=== PATIENT | female | born 1935 | race Caucasian/White ===

== ENCOUNTER 2018-07-02 12:42 | Emergency (ER) | payer MEDICARE, SELFPAY ==
[2018-07-02] VITALS (16 sets, daily range): BP systolic 113–188; BP diastolic 65–125; PULSE 65–154; RESP 8–25; TEMP 36.6; O2SAT 96–100; BMI 29.0
--- NOTE | 2018-07-02 12:56 | EKG12_ITS ---
Test Reason : REPEAT-CARDIOVERSION Blood Pressure : / mmHG Vent. Rate : 071 BPM Atrial Rate : 071 BPM P-R Int : 180 ms QRS Dur : 124 ms QT Int : 394 ms P-R-T Axes : 062 020 028 degrees QTc Int : 428 ms Normal sinus rhythm Right bundle branch block Abnormal ECG Confirmed by ANÍBAL PEREIRA ([id number]), pictures editor DELORIS BERG ([id number] on 07/05/2018 4:47:16 PM Referred By: HERMELINDA Confirmed By:ANÍBAL PEREIRA
--- NOTE | 2018-07-02 12:56 | RAD_ITS ---
STUDY: X-RAY CHEST REASON FOR EXAM: Female, 83 years old. Chest pain. TECHNIQUE: Single AP portable view of the chest. COMPARISON: None. FINDINGS: EKG electrodes are seen. Hyperinflation and scattered calcified granulomas. There is no demonstrated pleural abnormality. Normal size heart. Normal mediastinum and shahzad. Normal visualized pulmonary arteries. There is atherosclerotic calcification of the aortic arch with tortuosity. There are diffuse degenerative changes of the visualized thoracic spine. Mild dextroscoliosis. Normal visualized ribs, clavicles, and shoulders. There is no demonstrated abnormality of the visualized soft tissue structures of the upper abdomen. RAD/Chest 1 View (Portable) IMPRESSION: Hyperinflation. The lungs are clear. Electronically Signed: Puma Le, at 13:27 EDT , Service support ,
[2018-07-02] MEDS: Aspirin 81 MG TAB.CHEW 324 MG PO (13:05)
[2018-07-02] MEDS: Adenosine 6 MG/2 ML Syringe IV (13:05)
--- NOTE | 2018-07-02 13:11 | ED.RN ---
THIS RN AT BEDSIDE WITH . DR. SHEN GAVE 6MG OF ADENOSINE IV PUSH THROUGH RAC FOLLOWED BY 20ML NS FLUSH. EKG SHOWED UNDETERMINED RHYTHM RIGHT BUNDLE BRANCH BLOCK. POST ADENOSINE VITALS 119/94BP, 12 RESP RATE, 145 HR, 100% O2 ON 2L NC. PT LAYED FLAT TOLERATED WELL.
[2018-07-02 13:22] LABS: Absolute Lymphocyte Count 2.42 X10^3/ul (0.83-4.51); Absolute Neutrophil Count 2.9 X10^3/uL (2.0-7.7); Basophil# 0.02 X10^3/uL; Basophil% 0.3 % (0-1); Eosinophil# 0.06 X10^3/uL; Hematocrit 47.9 % (37-47); Hemoglobin 15.7 g/dl (12.0-15.0); Lymphocyte # 2.42 X10^3/ul (4.0); Lymphocyte % 41.7 % (19-41); Mean Corp Hgb Conc 32.8 g/gl (32-36); Mean Corpuscular Hgb 28.6 pg (27.0-32.0); Mean Corpuscular Volume 87.2 fL (81-99); Monocyte% 6.9 % (0-10); Neutrophil # 2.89 X10^3/uL (2.7-7.7); Neutrophil % 49.9 % (47-70); POSITIVE COUNT NO; POSITIVE DIFFERENTIAL NO; POSITIVE MORPHOLOGY NO; Platelet Count 209 K/mm3 (150-450); RBC Distribution Width CV 13.9 % (11.6-14.6); RBC Distribution Width SD 44.9 fl (35.1-43.9); Red Blood Count 5.49 M/mm3 (4.2-5.4); White Blood Count 5.8 K/mm3 (4.4-11.0)
[2018-07-02] MEDS: Etomidate 20 MG/10 ML Vial IV (13:28)
--- NOTE | 2018-07-02 13:30 | EKG12_ITS ---
Test Reason : CP Blood Pressure : / mmHG Vent. Rate : 157 BPM Atrial Rate : 074 BPM P-R Int : 000 ms QRS Dur : 110 ms QT Int : 306 ms P-R-T Axes : 000 060 015 degrees QTc Int : 494 ms Atrial fibrillation Right bundle branch block Abnormal ECG Confirmed by LUCA RODRIGUEZ, MIGUEL A ([id number]), state editor TED CULLEN ([id number]) on 07/14/2018 1:51:13 PM Referred By: SINDI Confirmed By:MIGUEL A SEGOVIA MD
[2018-07-02 13:38] LABS: Anion Gap 8 (5-15); BUN 10 mg/dL (7-18); BUN/Creat Ratio 18.4 RATIO (10-20); Chloride 103 mmol/L (98-107); Creatinine, Serum 0.54 mg/dL (0.55-1.02); EST Glomerular Filtration Rate 114 mL/min (>60); Est Glom Filt Rate - Afr Amer 137 mL/min (>60); Estimated Creatinine Clearance 36.81 ml/min; Glucose 102 mg/dL (74-106); Potassium 3.8 mmol/L (3.5-5.1); Sodium Level 137 mmol/L (136-145)
--- NOTE | 2018-07-02 13:39 | ED.VIS.GEN ---
History of Present Illness Chief Complaint: Chest Pain Informant: Patient Onset: Today - Context: Sudden Onset Timing: Continuous Quality: Trouble with speech and hallucinations Location: Noted by Current Severity: Mild Maximum Severity: Moderate Worsened by: Unknown Relieved by: Nothing Associated Symptoms: Dyspnea Narrative: Patient is a 83-year-old woman who presents with right-sided jaw pain chest discomfort with shortness of breath. Noted at 100 when she got up to use the restroom. She developed pressure in her chest at 05 100 and rapid heartbeat. She has no history of dysrhythmia or tachycardia. She denies orthopnea or PND. She does report mild dyspnea with exertion. She denies hematemesis, melena hematochezia. She denies leg pain, swelling discoloration. Denies history of PE or DVT or any risk factors. Prior similar symptoms: No Recent Illness/Hospitalization: No - Past Medical History (1) Depression Status: Chronic (2) Hyperlipidemia Status: Chronic (3) Hypertension Status: Chronic Past Medical History - Allergies and Home Meds Allergies/Adverse Reactions: Allergies Penicillins [PCN] Allergy (Verified 07/02/18 12:42) Rash lisinopril Adverse Reaction (Verified 07/02/18 12:42) Other COUGH Primary Care Physician: Bigg Holliday MD [Primary Care Provider] - Prior records reviewed: Yes - 2 determine medications for blood pressure Surgical History: total hip arthroplasty - Right., tonsillectomy, - - Tubal ligation. Lives: Spouse/ Significant Other Smoking Status: Never smoker Alcohol: None Drugs: None - Family History Maternal Family History: Reports: No pertinent history Paternal Family History: Reports: No pertinent history Review of Systems General: Denies: Chills, Fever, Malaise, Sweats, Weight loss Eyes: Denies: Visual changes - bilaterally, Diplopia ENT: Denies: Rhinorrhea, Sore throat Cardiovascular: Reports: Chest pain, Palpitations Respiratory: Reports: Dyspnea, Dyspnea on exertion Gastrointestinal: Denies: Abdominal pain, Nausea, Vomiting, Diarrhea, Melena, Hematochezia Genitourinary: Denies: Dysuria, Hematuria, Frequency Musculoskeletal: Denies: Myalgias, Arthralgias, Neck pain, Back pain, Swelling, Extremity Pain Skin: Denies: Rash, Wounds Neurological: Denies: Headache, Weakness, Numbness Psych: Reports: Depression Hematologic: Denies: Easy bruising, Easy bleeding Allergy: Denies: Uticaria, Swelling of the mouth Physical Exam Vital Signs/Narrative: Vital Signs Temp Pulse Pulse Pulse Pulse Resp Resp 07/02/18 13:33 78 16 07/02/18 13:28 130 H 142 H 65 13 07/02/18 13:27 130 H 15 07/02/18 13:13 142 H 12 07/02/18 13:05 137 H 13 07/02/18 12:52 154 H 8 L 07/02/18 12:43 98 F 152 H 14 Resp Resp BP BP BP BP Pulse Ox 07/02/18 13:33 188/91 H 98 07/02/18 13:28 12 22 H 130/97 H 144/122 H 116/90 H 07/02/18 13:27 131/89 H 99 07/02/18 13:13 119/94 H 100 07/02/18 13:05 113/102 H 100 07/02/18 12:52 137/125 H 100 07/02/18 12:43 100 General: Well nourished, Well developed, No Acute Distress Head: Normocephalic, Atraumatic Eyes: Perrl, EOMI. Negative for: Pale conjunctiva, Scleral icterus ENT: Moist mucous membranes, No rhinorrhea Neck: Supple, Nontender Cardiovascular: Regular rhythm, Normal S1, Normal S2, Tachycardia Respiratory: No distress, CTA bilaterally, Chest nontender Abdomen: Soft, Nontender, Nondistended, Normal bowel sounds, No masses Back: Nontender, Normal Inspection Extremities: Nontender, No edema, - - There is no asymmetry, swelling, discoloration, leg vein distention, palpable cords or tenderness along the distribution of the deep venous system. Skin: Normal color, No rash. Negative for: Cyanosis, Jaundice Neurological: Alert, Oriented x3, Cranial nerves II-XII grossly intact, Normal Strength, Normal Sensation, Normal DTR Psychological: Normal affect, Normal Mood Diagnostic/Tx/Re-eval Chest X-Ray - ED: 1 View, Read by ED Physician, Unchanged, Normal, Heart, Mediastinum, Bony Structures, No Acute Disease, Chronic Changes, - - Chest x-ray reveals hyperaeration. Impressions Chest X-Ray 07/02/18 12:56 IMPRESSION: Hyperinflation. The lungs are clear. Electronically Signed: Puma Le, at 13:27 EDT , Service support , 07/02/18 12:56 Chest 1 View (Portable) [RAD] Stat Laboratory Results 07/02/18 07/02/18 12:47 12:47 WBC 5.8 RBC 5.49 H Hgb 15.7 H Hct 47.9 H MCV 87.2 MCH 28.6 MCHC 32.8 RDW 13.9 RDW Differential 44.9 H Plt Count 209 MPV 10.0 Immature Gran % (Auto) 0.200 Neut % (Auto) 49.9 Lymph % (Auto) 41.7 H [place] % (Auto) 6.9 Eos % (Auto) 1.0 Baso % (Auto) 0.3 Absolute Neuts (auto) 2.9 Absolute Lymphs (auto) 2.42 Total Counted Not Reportable Sodium 137 Potassium 3.8 Chloride 103 Carbon Dioxide 26.0 Anion Gap 8 BUN 10 Creatinine 0.54 L Estim Creat Clear Calc 36.81 Est GFR (MDRD) Af Amer 137 Est GFR (MDRD) Non-Af 114 BUN/Creatinine Ratio 18.4 Glucose 102 Calcium 9.0 Troponin I < 0.015 - Rhythm Strip Rhythm Strip: Wide-complex tachycardia rate of 150 a flutter versus reentry tachycardia Rate: 150 - EKG Initial EKG Interpretation: - - EKG reveals a ventricular rate of 157 with evidence of a right bundle branch block. No P waves are seen. The rhythm is regular. This may represent a flutter versus reentry tachycardia. Follow-up EKG Interpretation: Sinus Rhythm - Ventricular rate 71 with a right bundle branch block, otherwise unremarkable. - Medical Decision Making EKG was obtained and reveals a narrow complex tachycardia. Based on heart rate this may represent atrial flutter versus reentry tachycardia. There is evidence of a right bundle branch block. We will treat initially with adenosine. There was brief break and rhythm. No P waves were seen. Monitor now reveals an irregular rhythm consistent with atrial fibrillation. Patient was informed that her heart rate is irregular and at her first EKG most likely result of old atrial flutter. Recommended treatment since onset was less than 12 hours ago he has cardioversion. She was explained risk benefits cardioversion as well as deep sedation using etomidate. Etomidate was used versus propofol because of marginal blood pressure low 100. Because she had chest pain will obtain appropriate blood work and troponin. Patient was consented for deep procedural sedation with etomidate and cardioversion. She was cardioverted with 100 J. Patient has remained in sinus rhythm. Repeat EKG reveals a sinus rhythm rate of 71 with right bundle branch block. MI interval is normal. QT interval is normal. [place] is to the right. Will have patient follow-up with Dr. Andi Jennings who is on for cardiology. He has been paged to discuss anticoagulation and use of beta-vineet. Spoke with Dr. Jennings at 1625. Plan is 1 month supply of Eliquis and beta-vineet. His office staff will contact her with appointment for next week. Procedures Procedure(s): 1. Deep procedural sedation using etomidate. 2. Cardioversion 100 J ED Disposition - Plan for ED Patient: Disposition: Acute Care Hospital [facility] Diagnosis: Atrial flutter by electrocardiogram Instructions: ED Paroxysmal Atrial Flutter Prescriptions: Metoprolol Succinate 50 mg PO DAILY #30 tab.er.24h Apixaban [Eliquis] 5 mg PO BID #74 tab Referrals: Bigg Holliday MD [Primary Care Provider] - Milo Jennings MD [STAFF PHYSICIAN] - 5-7 Days
--- NOTE | 2018-07-02 13:43 | ED.DCSUM_ITS ---
History of Present Illness Chief Complaint: Chest Pain Informant: Patient Onset: Today - Context: Sudden Onset Timing: Continuous Quality: Trouble with speech and hallucinations Location: Noted by Current Severity: Mild Maximum Severity: Moderate Worsened by: Unknown Relieved by: Nothing Associated Symptoms: Dyspnea Narrative: Patient is a 83-year-old woman who presents with right-sided jaw pain chest discomfort with shortness of breath. Noted at 100 when she got up to use the restroom. She developed pressure in her chest at 05 100 and rapid heartbeat. She has no history of dysrhythmia or tachycardia. She denies orthopnea or PND. She does report mild dyspnea with exertion. She denies hematemesis, melena hematochezia. She denies leg pain, swelling discoloration. Denies history of PE or DVT or any risk factors. Prior similar symptoms: No Recent Illness/Hospitalization: No - Past Medical History (1) Depression Status: Chronic (2) Hyperlipidemia Status: Chronic (3) Hypertension Status: Chronic Past Medical History - Allergies and Home Meds Allergies/Adverse Reactions: Allergies Penicillins [PCN] Allergy (Verified 07/02/18 12:42) Rash lisinopril Adverse Reaction (Verified 07/02/18 12:42) Other COUGH Primary Care Physician: Bigg Holliday MD [Primary Care Provider] - Prior records reviewed: Yes - 2 determine medications for blood pressure Surgical History: total hip arthroplasty - Right., tonsillectomy, - - Tubal ligation. Lives: Spouse/ Significant Other Smoking Status: Never smoker Alcohol: None Drugs: None - Family History Maternal Family History: Reports: No pertinent history Paternal Family History: Reports: No pertinent history Review of Systems General: Denies: Chills, Fever, Malaise, Sweats, Weight loss Eyes: Denies: Visual changes - bilaterally, Diplopia ENT: Denies: Rhinorrhea, Sore throat Cardiovascular: Reports: Chest pain, Palpitations Respiratory: Reports: Dyspnea, Dyspnea on exertion Gastrointestinal: Denies: Abdominal pain, Nausea, Vomiting, Diarrhea, Melena, Hematochezia Genitourinary: Denies: Dysuria, Hematuria, Frequency Musculoskeletal: Denies: Myalgias, Arthralgias, Neck pain, Back pain, Swelling, Extremity Pain Skin: Denies: Rash, Wounds Neurological: Denies: Headache, Weakness, Numbness Psych: Reports: Depression Hematologic: Denies: Easy bruising, Easy bleeding Allergy: Denies: Uticaria, Swelling of the mouth Physical Exam Vital Signs/Narrative: Vital Signs Temp Pulse Pulse Pulse Pulse Resp Resp 07/02/18 13:33 78 16 07/02/18 13:28 130 H 142 H 65 13 07/02/18 13:27 130 H 15 07/02/18 13:13 142 H 12 07/02/18 13:05 137 H 13 07/02/18 12:52 154 H 8 L 07/02/18 12:43 98 F 152 H 14 Resp Resp BP BP BP BP Pulse Ox 07/02/18 13:33 188/91 H 98 07/02/18 13:28 12 22 H 130/97 H 144/122 H 116/90 H 07/02/18 13:27 131/89 H 99 07/02/18 13:13 119/94 H 100 07/02/18 13:05 113/102 H 100 07/02/18 12:52 137/125 H 100 07/02/18 12:43 100 General: Well nourished, Well developed, No Acute Distress Head: Normocephalic, Atraumatic Eyes: Perrl, EOMI. Negative for: Pale conjunctiva, Scleral icterus ENT: Moist mucous membranes, No rhinorrhea Neck: Supple, Nontender Cardiovascular: Regular rhythm, Normal S1, Normal S2, Tachycardia Respiratory: No distress, CTA bilaterally, Chest nontender Abdomen: Soft, Nontender, Nondistended, Normal bowel sounds, No masses Back: Nontender, Normal Inspection Extremities: Nontender, No edema, - - There is no asymmetry, swelling, discoloration, leg vein distention, palpable cords or tenderness along the distribution of the deep venous system. Skin: Normal color, No rash. Negative for: Cyanosis, Jaundice Neurological: Alert, Oriented x3, Cranial nerves II-XII grossly intact, Normal Strength, Normal Sensation, Normal DTR Psychological: Normal affect, Normal Mood Diagnostic/Tx/Re-eval Chest X-Ray - ED: 1 View, Read by ED Physician, Unchanged, Normal, Heart, Mediastinum, Bony Structures, No Acute Disease, Chronic Changes, - - Chest x-ray reveals hyperaeration. Impressions Chest X-Ray 07/02/18 12:56 IMPRESSION: Hyperinflation. The lungs are clear. Electronically Signed: Puma Le, at 13:27 EDT , Service support , 07/02/18 12:56 Chest 1 View (Portable) [RAD] Stat Laboratory Results 07/02/18 07/02/18 12:47 12:47 WBC 5.8 RBC 5.49 H Hgb 15.7 H Hct 47.9 H MCV 87.2 MCH 28.6 MCHC 32.8 RDW 13.9 RDW Differential 44.9 H Plt Count 209 MPV 10.0 Immature Gran % (Auto) 0.200 Neut % (Auto) 49.9 Lymph % (Auto) 41.7 H [place] % (Auto) 6.9 Eos % (Auto) 1.0 Baso % (Auto) 0.3 Absolute Neuts (auto) 2.9 Absolute Lymphs (auto) 2.42 Total Counted Not Reportable Sodium 137 Potassium 3.8 Chloride 103 Carbon Dioxide 26.0 Anion Gap 8 BUN 10 Creatinine 0.54 L Estim Creat Clear Calc 36.81 Est GFR (MDRD) Af Amer 137 Est GFR (MDRD) Non-Af 114 BUN/Creatinine Ratio 18.4 Glucose 102 Calcium 9.0 Troponin I < 0.015 - Rhythm Strip Rhythm Strip: Wide-complex tachycardia rate of 150 a flutter versus reentry tachycardia Rate: 150 - EKG Initial EKG Interpretation: - - EKG reveals a ventricular rate of 157 with evidence of a right bundle branch block. No P waves are seen. The rhythm is regular. This may represent a flutter versus reentry tachycardia. Follow-up EKG Interpretation: Sinus Rhythm - Ventricular rate 71 with a right bundle branch block, otherwise unremarkable. - Medical Decision Making EKG was obtained and reveals a narrow complex tachycardia. Based on heart rate this may represent atrial flutter versus reentry tachycardia. There is evidence of a right bundle branch block. We will treat initially with adenosine. There was brief break and rhythm. No P waves were seen. Monitor now reveals an irregular rhythm consistent with atrial fibrillation. Patient was informed that her heart rate is irregular and at her first EKG most likely result of old atri al flutter. Recommended treatment since onset was less than 12 hours ago he has cardioversion. She was explained risk benefits cardioversion as well as deep sedation using etomidate. Etomidate was used versus propofol because of marginal blood pressure low 100. Because she had chest pain will obtain appropriate blood work and troponin. Patient was consented for deep procedural sedation with etomidate and cardioversion. She was cardioverted with 100 J. Patient has remained in sinus rhythm. Repeat EKG reveals a sinus rhythm rate of 71 with right bundle branch block. [place] interval is normal. QT interval is normal. [place] is to the right. Will have patient follow-up with Dr. Andi eJnnings who is on for cardiology. He has been paged to discuss anticoagulation and use of beta-vineet. Spoke with Dr. Jennings at 1625. Plan is 1 month supply of Eliquis and beta- vineet. His office staff will contact her with appointment for next week. Procedures Procedure(s): 1. Deep procedural sedation using etomidate. 2. Cardioversion 100 J ED Disposition - Plan for ED Patient: Disposition: Acute Care Hospital [facility] Diagnosis: Atrial flutter by electrocardiogram Instructions: ED Paroxysmal Atrial Flutter Prescriptions: Metoprolol Succinate 50 mg PO DAILY #30 tab.er.24h Apixaban [Eliquis] 5 mg PO BID #74 tab Referrals: Bigg Holliday MD [Primary Care Provider] - Milo Jennings MD [STAFF PHYSICIAN] - 5-7 Days
[2018-07-02] MEDS: Acetaminophen 325 MG Tablet 650 MG PO (15:10)
== END 2018-07-02 16:44 | disposition short-term general hospital (02) ==
PROVIDERS: Emergency Provider Emergency Medicine; Family Provider Internal Medicine; PCP Internal Medicine
DX: I48.92 Unspecified atrial flutter (principal); I10 Essential (primary) hypertension; E78.5 Hyperlipidemia, unspecified; F32.9 Major depressive disorder, single episode, unspecified; Z79.01 Long term (current) use of anticoagulants; Z79.82 Long term (current) use of aspirin; Z79.899 Other long term (current) drug therapy; Z96.641 Presence of right artificial hip joint
CPT/HCPCS: 71045; 80048; 84484; 85025; 92960; 93005; 96374; 96375; 99285; J7030; A4216; J0153

== ENCOUNTER → 2018-07-22 09:23 | Outpatient (CLI) | payer MEDICARE, SELFPAY ==
[2018-07-20 13:32] VITALS: BMI 29.3
[2018-07-22 10:56] LABS: AST(SGOT) 22 U/L (15-37); Alanine Aminotransfer ALT/SGPT 19 U/L (13-56); Albumin, Serum 3.7 g/dL (3.2-5.0); Alkaline Phosphatase 71 U/L (45-117); Bilirubin, Direct 0.07 mg/dL (0.00-0.30); Cholesterol 194 mg/dL (200); Globulin 3.6 g/dL (2.2-4.2); High Density Lipoprotein 61 mg/dL; Protein, Total 7.3 g/dL (6.4-8.2); T4 Total, Thyroxin 6.8 ug/dL (4.8-13.9); Thyroid Stim Hormone (TSH) 6.06 uIU/mL (0.358-3.74); Triglycerides 113 mg/dL; Very Low Density Lipoprotein 23 mg/dL (5-40)
== END ==
PROVIDERS: Family Provider Internal Medicine; PCP Internal Medicine; Referring Provider Internal Medicine Cardiovascular Disease; Visit Provider Internal Medicine Cardiovascular Disease
DX: R07.9 Chest pain, unspecified (principal); I48.91 Unspecified atrial fibrillation; E78.5 Hyperlipidemia, unspecified
CPT/HCPCS: 36415; 80061; 80076; 84436; 84443

== ENCOUNTER → 2018-07-28 07:53 | Outpatient (CLI) | payer MEDICARE, SELFPAY ==
[2018-07-20 13:32] VITALS: BMI 29.3
--- NOTE | 2018-07-28 07:55 | ECHOD_ITS ---
Reason For Study: AFIB/FLUTTER Procedure This was a 2D Doppler, Color Flow transthoracic echocardiogram. Exam performed in department. Left Ventricle Normal size and thickness. The estimated ejection fraction is 65 %. Stage 2 diastolic dysfunction. No regional wall motion abnormalities noted. Right Ventricle Normal size and thickness. Normal systolic function. Atria The left atrium is mildly enlarged. Normal right atrium. Normal atrial septum. Mitral Valve The mitral valve is structurally normal. No prolapse or stenosis seen. Trivial mitral valve insufficiency. Tricuspid Valve Normal tricuspid valve. Trivial tricuspid valve insufficiency. Right ventricular systolic pressure estimated to be 29 mmHg. Aortic Valve Trisinus/trileaflet aortic valve. Mild diffuse aortic valve thickening. Mild (1+) aortic valve insufficiency. Pulmonic Valve Normal pulmonic valve. Trivial pulmonic valve insufficiency. Great Vessels Normal aortic root. Normal arch. The inferior vena cava is dilated. No collapse of the inferior vena cava. Pericardium/Pleural No pericardial effusion. MMode/2D Measurements & Calculations LVIDd: 4.5 cm IVSd: 0.91 cm Ao root diam: 2.9 cm LVIDs: 3.1 cm LVPWd: 0.96 cm RVDd: 2.7 cm FS: 30.4 % LAV(MOD-bp): 59.6 ml LA A4 area: 16.1 cm2 LA dimension(2D): 3.8 cm LAV(MOD-bp) Indexed: 32.6 ml/m2 LAV(MOD-sp2): 71.4 ml LAV(MOD-sp4): 44.0 ml RA A4 area: 11.8 cm2 Time Measurements MV dec time: 0.20 sec Doppler Measurements & Calculations MV E max ebenezer: 97.6 cm/sec Lat Peak E' Ebenezer: 7.7 cm/sec Med Peak E' Ebenezer: 6.8 cm/sec MV A max ebenezer: 71.5 cm/sec E/E' lat: 12.6 E/E' med: 14.4 MV E/A: 1.4 Ao V2 max: 156.0 cm/sec AI max ebenezer: 317.9 cm/sec LV V1 max: 113.9 cm/sec Ao max P.5 mmHg AI max P.5 mmHg LV V1 max P.2 mmHg AI dec slope: 197.9 cm/sec2 AI P1/2t: 470.6 msec PA V2 max: 66.1 cm/sec TR max ebenezer: 246.8 cm/sec TR max P.4 mmHg Interpretation Summary The estimated ejection fraction is 65 %. Stage 2 diastolic dysfunction. The left atrium is mildly enlarged. Trivial mitral valve insufficiency. Trivial tricuspid valve insufficiency. Right ventricular systolic pressure estimated to be 29 mmHg. Mild (1+) aortic valve insufficiency. There is no comparison study available. Ordering Physician: Milo Jennings Referring Physician: Bigg Holliday Performed By: Bonnie Puente, LACIE, RVT
== END ==
PROVIDERS: Family Provider Internal Medicine; PCP Internal Medicine; Referring Provider Internal Medicine Cardiovascular Disease; Visit Provider Internal Medicine Cardiovascular Disease
DX: I48.91 Unspecified atrial fibrillation (principal); Z98.890 Other specified postprocedural states
CPT/HCPCS: 93306

== ENCOUNTER → 2018-08-04 10:22 | Outpatient (CLI) | payer MEDICARE, SELFPAY ==
[2018-07-20 13:32] VITALS: BMI 29.3
--- NOTE | 2018-08-04 10:24 | STE_ITS ---
Reason For Study: AFIB/FLUTTER Stress Results Protocol: Edward Protocol Maximum Predicted HR: 137 bpm Target HR: 116 bpm % Maximum Predicted HR: 95 % DurationHeart Rate Stage (mm:ss) (bpm) BP Comment BASELINE 57 150/88 STAGE 1 3:00 123 146/72 STAGE 2 0:30 130 / INCREASED SOB RECOVERY 79 148/84 Stress Duration: 3:30 mm:ss Maximum Stress HR: 130 bpm Baseline Echocardiogram Findings The estimated ejection fraction is 65 %. Stress Echo Wall motion Data Resting WM Intermediate WM Stress WM Resting Wall Motion Wall Motion Stress No regional wall motion No regional wall motion abnormalities noted. abnormalities noted. EKG Data The baseline ECG displays normal sinus rhythm. The patient exercised according to the regular Edward protocol for a total duration of 3:30. The maximum heart rate attained was 144 beats per minute. This was 105% of maximum predicted heart rate. The patient exercised into stage 2 of the Edward protocol. During stress, there were no ST or T wave changes noted to suggest ischemia. No clinical angina was noted. Interpretation Summary The estimated ejection fraction is 65 %. Normal, adequate, treadmill echocardiogram. Negative for ischemia by EKG and echocardiographic criteria. No anginal symptoms noted. Frequent PACs and rare PVCs during exercise and into recovery. Hypertensive blood pressure response to exercise. Below average exercise capacity for age. Final LVEF of 75%. Test terminated due to the attainment of target heart rate and dyspnea. No complications. Ordering Physician: Milo Jennings MD Referring Physician: Milo Jennings Performed By: Elizabet Meyer RDCS
== END ==
PROVIDERS: Family Provider Internal Medicine; PCP Internal Medicine; Referring Provider Internal Medicine Cardiovascular Disease; Visit Provider Internal Medicine Cardiovascular Disease
DX: I48.91 Unspecified atrial fibrillation (principal); I48.92 Unspecified atrial flutter; R07.9 Chest pain, unspecified; E78.5 Hyperlipidemia, unspecified
CPT/HCPCS: 93017; 93350

== ENCOUNTER → 2019-09-21 | Outpatient (CLI) | payer MEDICARE, SELFPAY ==
[2019-09-01 10:36] VITALS: BMI 29.3
--- NOTE | 2019-09-21 11:30 | LES_PTH ---
PATIENT: LIGIA DIAZ LOC: [facility] U#:[id number] AGE/SX: 84/F ROOM: RE09/21/[address]: Dr. Lonnie Chapin MD : [id number] BED: DIS: 09/21/2019 SPEC #: [id number] RECD: 09/21/19 15:10 STATUS: LEXIE PUSHPAIan #: [id number] WESLEY: 09/21/19 11:[address]: Lonnie Chapin DEPT: SURGICAL PATHOLOGY RECD BY: Rodolfo Sinha ENTERED: 09/22/19 09:16 SP TYPE: Lesion OTHR DR: Dr. Bigg Holliday MD Tissues: Skin of eyelid, NOS Procedures: Surgery Specimen Level IV HEADER OPERATION: Excisional biopsy lesion right side of nose PRE-OP DIAGNOSIS: Growth over six months, lesion right side of nose; seborrheic keratosis TISSUE SUBMITTED: Excisional biopsy lesion right side of nose MICROSCOPIC DIAGNOSIS Lesion right side of nose, excisional biopsy: Seborrheic keratosis with mild actinic changes. Solar elastosis. Negative for malignancy. ENDY:laci 09/26/19 COMMENT Please make reference to previous specimen ([id number]) lesion of left lower eyelid, biopsy with diagnosis of seborrheic keratosis, mildly inflamed. MICROSCOPIC DESCRIPTION Slides are reviewed. GROSS DESCRIPTION Received in fixative is one container labeled with the patient's name and designated right side of nose RLL. The specimen consists of a piece of tapia-white skin measuring 0.3 x 0.3 x 0.2 cm. The specimen is inked and submitted entirely in one cassette. / ENDY:laci 09/22/19 TC:1 CPT: 38680
== END | disposition home or self-care (01) ==
LOC: LABSPEC 15:57
PROVIDERS: PCP Internal Medicine; Referring Provider Ophthalmology; Visit Provider Ophthalmology
DX: L82.1 Other seborrheic keratosis (principal)
CPT/HCPCS: 88305

== ENCOUNTER 2020-04-12 12:08 | Outpatient (RCR) | payer MEDICARE, SELFPAY ==
[2020-03-29 11:05] VITALS: BMI 29.3
== END 2020-04-12 23:59 ==
LOC: IMMUN 12:08
PROVIDERS: PCP Internal Medicine; Visit Provider Family Medicine
DX: Z23 Encounter for immunization (principal)
CPT/HCPCS: 0011A; 0012A; 91301

== ENCOUNTER 2021-01-02 19:30 | Emergency (ER) | payer MEDICARE, SELFPAY ==
[2021-01-02 19:32] VITALS: BP 133/106; PULSE 125; RESP 18; TEMP 36.1; O2SAT 99; BMI 27.4
--- NOTE | 2021-01-02 20:36 | EKG12_ITS ---
Test Reason : CP Blood Pressure : / mmHG Vent. Rate : 077 BPM Atrial Rate : 077 BPM P-R Int : 186 ms QRS Dur : 116 ms QT Int : 392 ms P-R-T Axes : 062 001 037 degrees QTc Int : 443 ms Sinus rhythm with occasional Premature ventricular complexes Right bundle branch block Abnormal ECG Confirmed by ELMER RODRIGUEZ, DEJAH ([id number]), editorial writer TED CULLEN ([id number]) on 01/08/2021 6:34:36 AM Referred By: MOON Confirmed By:DEJAH PAYNE MD
--- NOTE | 2021-01-02 20:37 | EDS_ITS ---
HPI History of Present Illness Chief Complaint: Palpitations Detail of Chief Complaint: Palpitations and tachycardia noted since around 4:15 PM Informant: patient Narrative Narrative: Patient presents to the emergency department stating that she had gone to the pharmacy to get a flu shot when she started feeling woozy. Patient states that she sat down and the pharmacist checked her blood pressure and it was 170s over 102 which was unusually high for her. Patient noted at that time that her pulse was in the 140s. Patient's felt some palpitations. She does have history of atrial fibrillation in 2019 that required cardioversion. Patient is currently on apixaban and propranolol. She denies any chest pain currently but did have a little bit of chest heaviness after going home from the pharmacy. Currently she feels pretty well. Prior similar symptoms: Yes PFSH [facility] Medical History Atrial fibrillation (07/02/18) Atrial flutter by electrocardiogram Chest pain Depression Essential hypertension Hyperlipidemia Osteoarthritis of left hip Paroxysmal atrial fibrillation Paroxysmal atrial flutter Shortness of breath Home Medications sertraline 50 mg PO DAILY 08/26/16 [History Last Taken Unknown] simvastatin 10 mg PO QHS 08/26/16 [History Last Taken Unknown] levothyroxine 50 mcg capsule 50 mcg PO DAILY 11/29/18 [History Last Taken Unknown] losartan 50 mg-hydrochlorothiazide 12.5 mg tablet 1 tab PO DAILY 11/29/18 [History Last Taken Unknown] metoprolol succinate 25 mg tablet,extended release 24 hr 25 mg PO DAILY 11/29/18 [History Last Taken Unknown] potassium chloride 10 mEq tablet,extended release 10 meq PO DAILY 11/29/18 [History Last Taken Unknown] vit C,E,zinc,copper-[id number] 250 mg-lutein 5 mg-zeaxanthin 1 mg capsule 1 cap PO DAILY 11/29/18 [History Last Taken Unknown] ibuprofen 200 mg tablet 200 mg PO Q6H PRN 05/03/19 [History Last Taken Unknown] apixaban 5 mg tablet 5 mg PO BID #60 tab 08/28/20 [Rx Last Taken Unknown] glucosamine 500 mg-msm 500 mg-Boswellia 33.3 mg-herb 182 70 mg tablet 1 tab PO DAILY 11/21/20 [History Last Taken Unknown] magnesium hydroxide 400 mg (170 mg magnesium) chewable tablet 400 mg PO DAILY 11/21/20 [History Last Taken Unknown] Allergy/AdvReac Type Severity Reaction Status Date / Time Penicillins [PCN] Allergy Rash Verified 01/02/21 20:21 lisinopril AdvReac Intermediate cough Verified 01/02/21 20:21 Family History Father , Age 70, ETOH abuse Hypertension ETOH abuse Surgical History History of cardioversion (07/02/18) History of tonsillectomy History of total right hip arthroplasty History of tubal ligation Social History (Updated 12/20/20 @ 14:24 by Leni Mckeon) Smoking Status: Never smoker alcohol intake: never substance use type: does not use ROS ROS ED Constitutional Constitutional ED: Reports systems reviewed and no addt'l complaints, except as documented; Denies body ache(s), change in weight or chills Eyes Eyes: Denies acute decrease in peripheral vision, change in vision, double vision or loss of vision ENT ENT ED: Reports none; Denies ear pain, lip swelling, loss taste/smell, neck pain, otalgia or sore throat Cardiovascular Cardiovascular: Reports none, chest pain and palpitations; Denies abdominal pain, chest pain with activity, leg edema, lightheadedness, rapid heart rate or syncope Respiratory/Chest Respiratory/Chest: Reports none; Denies change in mental status, dry cough, dyspnea, hemoptysis, shortness of breath at rest or shortness of breath with exertion Gastrointestinal Gastrointestinal: Reports none; Denies abdominal pain, change in stool character, diarrhea, hematemesis, hematochezia, melena, rectal bleeding or vomiting Genitourinary Genitourinary ED: Reports none; Denies abdominal discomfort, anuria, dysuria, genital pain or polyuria Musculoskeletal Musculoskeletal: Reports none; Denies arthralgias, back pain, difficulty walking, extremity pain, muscle weakness or myalgias Integumentary Reports none; Denies abscess or rash Neurologic Neurologic: Reports none; Denies abnormal gait, confusion, focal weakness, frequent falls, headache(s), loss of vision, numbness, paresthesias, radicular pain, vertigo or weakness Psychiatric Psychiatric: Reports systems reviewed and no addt'l complaints, except as documented and none; Denies behavioral changes, confusion, difficulty concentrating, hallucinations, suicidal ideation, tactile hallucinations or visu al hallucinations Endocrine Endocrinology: Denies none, cold intolerance, excessive sweating, fatigue or heat intolerance Hematologic/Lymphatic Hematologic/Lymphatic: Reports none; Denies anemia, easy bleeding or easy bruising Allergic/Immunologic Allergic/Immunologic ED: Denies as per HPI, none, lip swelling, mouth swelling, throat swelling, tongue swelling or hives EXAM Physical Exam Const Vital Signs: 01/02/21 19:32 01/02/21 20:24 01/02/21 21:10 Temperature 97 F L Temperature Source Temporal Pulse Rate 125 H 71 Respiratory Rate 18 16 Respiratory Effort Normal Non-Labored Blood Pressure 133/106 H 137/75 H Blood Pressure Mean 115 95 Pulse Ox 99 Oxygen Delivery Method Room Air Positive well nourished and well developed General Appearance ED: well developed and NAD HEENT Reports TM's clear and moist mucous membranes normocephalic and atraumatic; Negative for trauma or tenderness Tympanic Membrane ED: Yes TM's clear Eyes PERRL and EOMs intact bilaterally General Eye ED: Negative for pale conjunctiva or scleral icterus Neck no lymphadenopathy, supple and no JVD General: Negative for tenderness Chest Wall inspection of chest normal and palpation of chest normal Chest: Negative for tenderness Resp normal respiratory effort and clear to auscultation bilaterally Effort and Inspection: Negative for respiratory distress or pain with movement Auscultation: Negative for rhonchi, wheezes or diminished lung sounds Cardio regular rate, regular rhythm, S1 normal heart sound, S2 normal heart sound and no murmurs Rate: other Other Details: Occasional ectopy noted Peripheral Pulses: pulses 2+ throughout GI normal to inspection, nondistended, normoactive bowel sounds, soft to palpation, non-tender, non-distended and no masses Back/Spine no CVA tenderness and no thoracic nor lumbar tenderness Extremity normal to inspection General Extremety ED: Negative for edema General Extremity: Negative for edema Neuro oriented x3, CN's II-XII intact bilaterally, no sensory deficits noted and gait normal Sensorium / Orientation: awake, alert, oriented to person, oriented to place and oriented to time Motor Exam: strength 5/5 throughout and strength abnormal Psych mental status grossly normal Skin no rashes or lesions noted and no wounds MDM MDM Lab Data Attestation: I reviewed the patient's lab results. Labs: Laboratory Results - last 24 hr 01/02/21 01/02/21 21:00 21:00 WBC 4.2 L RBC 4.31 Hgb 12.6 Hct 38.4 MCV 89.1 MCH 29.2 MCHC 32.8 RDW Std Deviation 45.3 H RDW Coeff of Conchita 13.8 Plt Count 158 MPV 9.8 Immature Gran % (Auto) 0.200 Neut % (Auto) 48.4 Lymph % (Auto) 41.1 H [place] % (Auto) 7.9 Eos % (Auto) 1.9 Baso % (Auto) 0.5 Absolute Neuts (auto) 2.0 Absolute Lymphs (auto) 1.71 Nucleated RBC % 0 Sodium 138 Potassium 3.7 Chloride 104 Carbon Dioxide 27.0 Anion Gap 7 BUN 25 H Creatinine 1.04 H Estim Creat Clear Calc 34.15 Est GFR (MDRD) Af Amer 65 Est GFR (MDRD) Non-Af 53 L BUN/Creatinine Ratio 24.0 H Glucose 108 H Calcium 8.9 Troponin I High Sens 16 Radiography Chest X-Ray - ED: 1 View Diagnostic Testing: Clinical Impression(s) from Imaging Studies Chest X-Ray 01/02/21 20:40 IMPRESSION: No acute cardiopulmonary process. Electronically Signed: Olivia Contreras MD at 20:58 EDT Tel , Service support , 1 view chest x-ray obtained interpreted by myself as no acute disease process. Radiology in agreement. EKG Initial EKG: Attestation: I personally reviewed and interpreted this EKG as follows: Comments: Sinus rhythm with a ventricular rate of 77 bpm with a right bundle branch block and occasional PVCs Discharge Plan Triage Chief Complaint: Palpitations ED Provider: Jackie Tijerina Dx/Rx/DC Orders Clinical Impression: Palpitations Instructions: ED AFIB, ED Palpitations Prescriptions: No Action levothyroxine 50 mcg capsule 50 mcg capsule 50 mcg PO DAILY RF: 0 metoprolol succinate 25 mg tablet extended release 24 hr 25 mg PO DAILY RF: 0 potassium chloride 10 mEq tablet extended release 10 meq PO DAILY RF: 0 Ocuvite Adult 50 Plus 250-5-1 mg capsule 1 cap PO DAILY RF: 0 ibuprofen [Advil] 200 mg tablet 200 mg PO Q6H PRN (Reason: takes only occasionally) RF: 0 Cosamin [place] (with Boswellia) 500-500-33.3-70 mg tablet 1 tab PO DAILY RF: 0 magnesium hydroxide 400 mg (170 mg magnesium) tablet,chewable 400 mg PO DAILY RF: 0 simvastatin 10 MG tablet 10 mg PO QHS RF: 0 sertraline 50 MG tablet 50 mg PO DAILY RF: 0 losartan-hydrochlorothiazide 50-12.5 mg tablet 1 tab PO DAILY RF: 0 apixaban 5 mg tablet 5 mg PO BID Qty: 60 RF: 11 Primary Care Provider: Quita Pena Referrals: Vu Newberry MD [STAFF PHYSICIAN] - Keep [facility] appointment Quita Pena MD [Primary Care Provider] - Disposition Disposition: Home, Self Care
--- NOTE | 2021-01-02 20:40 | RAD_ITS ---
STUDY: X-RAY CHEST REASON FOR EXAM: Female, 85 years old. Tachycardia TECHNIQUE: Single frontal view of the chest. COMPARISON: 07/02/2018 FINDINGS: There is no new focal consolidation. Normal size heart. Normal mediastinum and shahzad. Normal visualized pulmonary arteries. Normal visualized aortic arch and descending thoracic aorta. Normal visualized thoracic spine. Normal visualized ribs, clavicles, and shoulders. There is no demonstrated abnormality of the visualized soft tissue structures of the upper abdomen. RAD/Chest 1 View (Portable) IMPRESSION: No acute cardiopulmonary process. Electronically Signed: Olivia Contreras MD at 20:58 EDT Tel , Service support ,
[2021-01-02 21:09] LABS: Absolute Lymphocyte Count 1.71 X10^3/uL (0.83-4.51); Basophil# 0.02 X10^3/uL; Basophil% 0.5 % (0-1); Eosinophil# 0.08 X10^3/uL; Eosinophils% 1.9 % (0-5); Hematocrit 38.4 % (37-47); Hemoglobin 12.6 g/dL (12.0-15.0); Lymphocyte # 1.71 X10^3/ul (0.83-4.51); Lymphocyte % 41.1 % (19-41); Mean Corp Hgb Conc 32.8 g/dL (32-36); Mean Corpuscular Hgb 29.2 pg (27.0-32.0); Mean Corpuscular Volume 89.1 fL (81-99); Mean Platelet Vol. 9.8 fl (6.2-12.0); Monocyte# 0.33 X10^3/uL; Monocyte% 7.9 % (0-10); NRBC Flagged by Analyzer 0 % (0-5); Neutrophil # 2.01 X10^3/uL (2.7-7.7); Neutrophil % 48.4 % (47-70); Platelet Count 158 K/mm3 (150-450); RBC Distribution Width CV 13.8 % (11.6-14.6); RBC Distribution Width SD 45.3 fl (35.1-43.9); Red Blood Count 4.31 M/mm3 (4.2-5.4); White Blood Count 4.2 K/mm3 (4.4-11.0)
[2021-01-02 21:10] VITALS: BP 137/75; PULSE 71; RESP 16
[2021-01-02] MEDS: 0.9% Normal Saline 1,000 ML 1000 ML IV (21:27)
[2021-01-02 21:30] LABS: Anion Gap 7 (5-15); BUN 25 mg/dL (7-18); Calcium,Total 8.9 mg/dL (8.5-10.1); Chloride 104 mmol/L (98-107); Creatinine, Serum 1.04 mg/dL (0.55-1.02); EST Glomerular Filtration Rate 53 mL/min (>60); Est Glom Filt Rate - Afr Amer 65 mL/min (>60); Estimated Creatinine Clearance 34.15 ml/min; Glucose 108 mg/dL (74-106); Potassium 3.7 mmol/L (3.5-5.1); Sodium Level 138 mmol/L (136-145); Troponin-I HS 16 pg/mL (3.0-54.0)
[2021-01-02 22:14] VITALS: BP 159/63; PULSE 59; RESP 15
== END 2021-01-02 22:15 | disposition home or self-care (01) ==
PROVIDERS: Emergency Provider Emergency Medicine; PCP Internal Medicine
DX: R00.2 Palpitations (principal); I48.0 Paroxysmal atrial fibrillation; I10 Essential (primary) hypertension; E78.5 Hyperlipidemia, unspecified; M16.12 Unilateral primary osteoarthritis, left hip; F32.A Depression, unspecified; Z79.01 Long term (current) use of anticoagulants; Z79.890 Hormone replacement therapy; Z79.899 Other long term (current) drug therapy; Z96.641 Presence of right artificial hip joint
CPT/HCPCS: 71045; 80048; 84484; 85025; 93005; 96360; 99284; J7030

== ENCOUNTER 2021-01-15 10:26 | Inpatient (IN) | payer MEDICARE, SELFPAY ==
[2021-01-15] VITALS (10 sets, daily range): BP systolic 138–180; BP diastolic 49–71; PULSE 56–64; RESP 14–18; TEMP 36.3–37.2; O2SAT 88–100; BMI 29.5; BMI 28.8
--- NOTE | 2021-01-15 10:44 | EDS_ITS ---
HPI HPI - URI History of Present Illness Chief Complaint: Weakness Narrative Narrative: 85-year-old female presenting with cough, generalized fatigue for the last 2 days. She states that she was vaccinated for COVID-19 however her is positive for Covid and she believes she has this. She states that her cough is dry and nonproductive. She does not believe she is had a fever. She does have body aches. She does not have chest pain. Patient also complains that her right hip hurts. She states that she has not not had any injury to this hip. She is able to ambulate and has not fallen. She states she has been taking ibuprofen at home which does not control the pain. Patient does have a history of A. fib and is on Eliquis. Denies black or bloody stools. ROS ROS ED Constitutional Constitutional ED: Denies chills or fever(s) Eyes Eyes: Denies blurry vision or diplopia ENT ENT ED: Denies rhinorrhea or sore throat Cardiovascular Cardiovascular: Denies chest pain or palpitations Respiratory/Chest Respiratory/Chest: Reports cough; Denies dyspnea Gastrointestinal Gastrointestinal: Reports nausea; Denies abdominal pain, diarrhea or vomiting Genitourinary Genitourinary ED: Denies dysuria or hematuria Musculoskeletal Musculoskeletal: Reports myalgias and other Details: Right hip pain ; Denies neck pain Integumentary Denies abscess or rash Neurologic Neurologic: Denies headache(s) or paresthesias [facility] Medical History (Updated 01/15/21 @ 15:[address] Betty Alvarez, DO) Atrial fibrillation (07/02/18) Atrial flutter by electrocardiogram Chest pain Depression Osteoarthritis of left hip Shortness of breath Home Medications sertraline 50 mg PO DAILY 08/26/16 [History Last Taken 01/14/21] simvastatin 10 mg PO QHS 08/26/16 [History Last Taken 01/14/21] losartan 50 mg-hydrochlorothiazide 12.5 mg tablet 1 tab PO DAILY 11/29/18 [History Last Taken 01/14/21] metoprolol succinate 25 mg tablet,extended release 24 hr 25 mg PO DAILY 11/29/18 [History Last Taken 01/14/21] potassium chloride 10 mEq tablet,extended release 10 meq PO DAILY 11/29/18 [History Last Taken 01/14/21] vit C,E,zinc,copper-[id number] 250 mg-lutein 5 mg-zeaxanthin 1 mg capsule 1 cap PO DAILY 11/29/18 [History Last Taken 01/14/21] ibuprofen 200 mg tablet 200 - 400 mg PO Q6H PRN 05/03/19 [History Last Taken 01/15/21] apixaban 5 mg tablet 5 mg PO BID #60 tab 08/28/20 [Rx Last Taken 01/14/21] glucosamine 500 mg-msm 500 mg-Boswellia 33.3 mg-herb 182 70 mg tablet 1 tab PO DAILY PRN 11/21/20 [History Last Taken Unknown] magnesium hydroxide 400 mg (170 mg magnesium) chewable tablet 400 mg PO DAILY 11/21/20 [History Last Taken 01/14/21] levothyroxine 75 mcg PO DAILY 01/15/21 [History Last Taken 01/14/21] Allergy/AdvReac Type Severity Reaction Status Date / Time Penicillins [PCN] Allergy Rash Verified 01/15/21 10:33 lisinopril AdvReac Intermediate cough Verified 01/15/21 10:33 Family History Father , Age 70, ETOH abuse Hypertension ETOH abuse Surgical History History of cardioversion (07/02/18) History of tonsillectomy History of total right hip arthroplasty History of tubal ligation Social History Smoking Status: Never smoker alcohol intake: never substance use type: does not use EXAM Physical Exam Const Vital Signs: 01/15/21 10:27 01/15/21 10:32 01/15/21 10:40 Temperature 98.9 F 98.9 F Temperature Source Oral Oral Pulse Rate 63 57 L Respiratory Rate 14 17 Respiratory Effort Normal Respiratory Pattern Normal Blood Pressure 163/71 H 180/71 H Blood Pressure Mean 101 107 Pulse Ox 94 92 Pulse Ox [AMBULATING on Room Air] Pulse Ox [AMBULATING with Oxygen #1] Pulse Ox [At REST on Room Air] Oxygen Delivery Method Room Air Room Air Oxygen Flow Rate (L/min) Oxygen Flow Rate (L/min) [AMBULATING with Oxygen #1] 01/15/21 12:11 01/15/21 12:13 01/15/21 13:16 Temperature 98.6 F 97.9 F Temperature Source Oral Oral Pulse Rate 57 L 56 L Respiratory Rate 14 18 Respiratory Effort Respiratory Pattern Blood Pressure 138/65 H 138/64 H Blood Pressure Mean 89 88 Pulse Ox 92 98 Pulse Ox [AMBULATING on Room Air] 88 Pulse Ox [AMBULATING with Oxygen #1] 98 Pulse Ox [At REST on Room Air] 93 Oxygen Delivery Method Room Air Nasal Cannula Oxygen Flow Rate (L/min) 2 Oxygen Flow Rate (L/min) [AMBULATING with Oxygen #1] 2 01/15/21 14:06 Temperature 98.5 F Temperature Source Oral Pulse Rate 56 L Respiratory Rate 15 Respiratory Effort Respiratory Pattern Blood Pressure 164/61 H Blood Pressure Mean 95 Pulse Ox 100 Pulse Ox [AMBULATING on Room Air] Pulse Ox [AMBULATING with Oxygen #1] Pulse Ox [At REST on Room Air] Oxygen Delivery Method Nasal Cannula Oxygen Flow Rate (L/min) 2 Oxygen Flow Rate (L/min) [AMBULATING with Oxygen #1] Positive well nourished General Appearance ED: NAD; Negative for pallor HEENT normocephalic and atraumatic Eyes PERRL and EOMs intact bilaterally Neck supple and no meningeal signs Resp normal respiratory effort and clear to auscultation bilaterally Auscultation: Negative for rales, rhonchi or wheezes Cardio Rate: regular rate Rhythm: regular rhythm GI non-tender and non-distended Palpation: soft Back/Spine Back/Spine Narrative: Tenderness to palpation superior to the right hip and in the right gluteal region. Patient is able to flex and extend the hip from the bed. Negative logroll. Neuro oriented x3 and CN's II-XII intact bilaterally Sensorium / Orientation: alert Psych mental status grossly normal Skin General Skin Exam: Negative for jaundice or pallor MDM MDM MDM Narrative Medical decision making narrative: Patient presenting with generalized weakness and slight cough as well as right hip pain. She has not had any trauma. She reports that her is Covid positive. She was tested today and is positive for COVID-19. Chest x-ray shows early right middle lobe infiltrate on my interpretation and the radiologist does agree. Patient's lab work shows that she is both leukopenic and lymphopenic. Renal function and electrolytes are normal. LFTs are normal. Patient was given morphine and Zofran. She is able to walk to and from the bathroom unassisted. She did drop to 88% on room air and required 1 L of oxygen to supplement. She is on Eliquis so I feel PE is unlikely. She complained of right hip pain so I did obtain an x-ray of the right hip although since she is ambulating on it and able to move it without difficulty I did not do this initially. The x-ray of the right hip on my interpretation shows no acute fracture or subluxation. Radiologist does agree. Clinically I think this is likely sciatica. After discussion with her son-in-law he wants her to be admitted because she is too weak to take care of her who is also sick with COVID-19. Patient initially did not want to be admitted but then stated that she would stay. Discussed with hospitalist for admission. Impression: 1. COVID-19 pneumonitis 2. Generalized weakness 3. Sciatica Lab Data Attestation: I reviewed the patient's lab results. Labs: Laboratory Results - last 24 hr 01/15/21 01/15/21 11:20 11:20 WBC 2.1 L RBC 4.08 L Hgb 12.0 Hct 36.0 L MCV 88.2 MCH 29.4 MCHC 33.3 RDW Std Deviation 44.0 H RDW Coeff of Conchita 13.6 Plt Count 104 L MPV 10.0 Immature Gran % (Auto) 0.500 Neut % (Auto) 63.6 Lymph % (Auto) 23.9 [place] % (Auto) 11.5 H Eos % (Auto) 0.5 Baso % (Auto) 0.0 Absolute Neuts (auto) 1.3 L Absolute Lymphs (auto) 0.50 L Nucleated RBC % 0 Differential Comment SCANNED Diff Path Review May foll Sodium 134 L Potassium 3.6 Chloride 98 Carbon Dioxide 26.0 Anion Gap 10 BUN 10 Creatinine 0.83 Estim Creat Clear Calc 42.79 Est GFR (MDRD) Af Amer 84 Est GFR (MDRD) Non-Af 69 BUN/Creatinine Ratio 12.0 Glucose 108 H Calcium 8.3 L Total Bilirubin 0.50 AST 17 ALT 16 Alkaline Phosphatase 69 Total Protein 6.7 Albumin 3.0 L Globulin 3.7 Albumin/Globulin Ratio 0.8 L Radiography Diagnostic Testing: Clinical Impression(s) from Imaging Studies Chest X-Ray 01/15/21 11:40 IMPRESSION: Early right middle lobe infiltrate. Electronically Signed: Puma Le MD at 11:59 EDT , Service support , Hip/Pelvis X-Ray 01/15/21 13:11 IMPRESSION: Status post bilateral hip replacement. Electronically Signed: Puma Le MD at 13:49 EDT , Service support , Discharge Plan Triage Chief Complaint: Weakness ED Provider: Sukhjinder Valverde Dx/Rx/DC Orders Primary Care Provider: Quita Pena Disposition Discharge Date/Time: 01/15/21 14:29
[2021-01-15] MEDS: Morphine 4 MG/ML Syringe IV (11:15)
[2021-01-15] MEDS: Ondansetron 4 MG/2 ML Vial IV (11:15)
[2021-01-15 11:33] LABS: Absolute Neutrophil Count 1.3 X10^3/uL (2.0-7.7); Eosinophil# 0.01 X10^3/uL; Eosinophils% 0.5 % (0-5); Lymphocyte % 23.9 % (19-41); Mean Corp Hgb Conc 33.3 g/dL (32-36); Mean Corpuscular Hgb 29.4 pg (27.0-32.0); Mean Corpuscular Volume 88.2 fL (81-99); Monocyte# 0.24 X10^3/uL; Monocyte% 11.5 % (0-10); NRBC Flagged by Analyzer 0 % (0-5); Neutrophil # 1.33 X10^3/uL (2.7-7.7); Neutrophil % 63.6 % (47-70); POSITIVE DIFFERENTIAL YES; Platelet Count 104 K/mm3 (150-450); RBC Distribution Width CV 13.6 % (11.6-14.6); Red Blood Count 4.08 M/mm3 (4.2-5.4); White Blood Count 2.1 K/mm3 (4.4-11.0)
[2021-01-15 11:38] LABS: Differential Indicated SCAN CRITERIA MET
--- NOTE | 2021-01-15 11:40 | RAD_ITS ---
STUDY: X-RAY CHEST REASON FOR EXAM: Female, 85 years old. Cough TECHNIQUE: Single AP portable view of the chest. COMPARISON: Comparison is made with prior study dated 01/02/2021. FINDINGS: EKG atelectasis are seen. Early infiltrate in the right middle lobe. There is no demonstrated pleural abnormality. Normal size heart. Normal mediastinum and shahzad. Normal visualized pulmonary arteries. There is atherosclerotic calcification of the aortic arch with tortuosity. There are diffuse degenerative changes of the visualized thoracic spine. Mild dextroscoliosis. Normal visualized ribs, clavicles, and shoulders. There is no demonstrated abnormality of the visualized soft tissue structures of the upper abdomen. RAD/Chest 1 View (Portable) IMPRESSION: Early right middle lobe infiltrate. Electronically Signed: Puma Le MD at 11:59 EDT , Service support ,
[2021-01-15 11:47] LABS: ALB/GLOB Ratio 0.8 RATIO (0.9-2.4); AST(SGOT) 17 U/L (15-37); Alanine Aminotransfer ALT/SGPT 16 U/L (13-56); Alkaline Phosphatase 69 U/L (45-117); Anion Gap 10 (5-15); BUN 10 mg/dL (7-18); Calcium,Total 8.3 mg/dL (8.5-10.1); Chloride 98 mmol/L (98-107); Creatinine, Serum 0.83 mg/dL (0.55-1.02); EST Glomerular Filtration Rate 69 mL/min (>60); Est Glom Filt Rate - Afr Amer 84 mL/min (>60); Estimated Creatinine Clearance 42.79 ml/min; Globulin 3.7 g/dL (2.2-4.2); Glucose 108 mg/dL (74-106); Potassium 3.6 mmol/L (3.5-5.1); Protein, Total 6.7 g/dL (6.4-8.2); Sodium Level 134 mmol/L (136-145)
[2021-01-15 11:55] LABS: Differential Comment SCANNED
--- NOTE | 2021-01-15 13:11 | RAD_ITS ---
STUDY: X-RAY - PELVIS AND RIGHT HIP REASON FOR EXAM: Female, 85 years old. Hip pain TECHNIQUE: 3 views of the pelvis and hip. COMPARISON: None. FINDINGS: There is a non-specific bowel gas pattern. Normal visualized soft tissue structures. Normal bilateral iliac wings, sacroiliac joints and visualized sacrum. Normal bilateral superior and inferior pubic rami. Normal pubic symphysis. Normal bilateral ischial tuberosities. The patient is status post bilateral hip replacement. No evidence of fracture or dislocation. RAD/HIP, UNI W/ Pelvis 2-3 Views IMPRESSION: Status post bilateral hip replacement. Electronically Signed: Puma Le MD at 13:49 EDT , Service support ,
--- NOTE | 2021-01-15 13:22 | CM.ED ---
XANDER Note Referral Source: MD Referral Reason: Home Oxygen [place] [facility] [facility] voiced yes, we take that' .SW made referral for patient to receive home oxygen. stated that patient wants to be admitted to Acute. [place] [facility] Quyen. Quyen was advised that patient does not need home oxygen as the plan is to admit her. No further SW needs at this time however, SW remains available. [facility]
--- NOTE | 2021-01-15 14:03 | NURSING ---
MED SURG OLIVA BRADLEY, COVID 19, UNSTEADY
[2021-01-15] MEDS: dexAMETHasone 10 MG/ML Vial 6 MG IV (14:05)
--- NOTE | 2021-01-15 14:49 | PCM.HP.STD ---
HPI - General General Date of Admission: 01/15/21 Date of Service: 01/15/21 Chief Complaint: Weakness HPI Narrative LIGIA DIAZ, is a 85 F who presented to the emergency department complaining of generalized weakness that started approximately 2 to 3 days ago. She has coexisting symptoms that include cough that is nonproductive, generalized fatigue, malaise, decreased p.o. intake with decreased appetite and change in taste but no change in smell, nausea without emesis,, as well as chills but no documented fever. She has been vaccinated against COVID-19 but not yet had her booster. She states that her was found to be Positive for COVID-19 and she believes that she has it as well. Her other complaint was right hip pain that is actually more buttock and back pain. In the emergency department she was afebrile and her heart rate was in the mid to upper 50s. Her blood pressures were elevated but she has not been taking all of her medications, her respiratory rate was normal and her oxygen saturations were 92% on room air but she desaturated into the 80s with ambulation. Her CBC showed a leukopenia with a white count of 2.1 and a thrombocytopenia with a platelet count of 104 both of which are abnormal for her. Her BMP shows mild hyponatremia with a sodium of 134. Her LFTs are within normal limits. Her chest x-ray shows a possible developing right middle lobe infiltrate. Her hip and pelvic x-rays showed no abnormalities other than status post bilateral hip replacements. The emergency department physician did offer discharge but the family felt that she was too weak and ill to go home and care for herself and her and therefore requested admission for continued care and treatment for her Covid. She was given Decadron in the emergency department and will be admitted to the medical surgical floor. [facility] Medical History (Updated 01/15/21 @ 15:[address] Betty Alvarez DO) Atrial fibrillation (07/02/18) Atrial flutter by electrocardiogram Chest pain Depression Osteoarthritis of left hip Shortness of breath Home Medications sertraline 50 mg PO DAILY 08/26/16 [History Last Taken 01/14/21] simvastatin 10 mg PO QHS 08/26/16 [History Last Taken 01/14/21] losartan 50 mg-hydrochlorothiazide 12.5 mg tablet 1 tab PO DAILY 11/29/18 [History Last Taken 01/14/21] metoprolol succinate 25 mg tablet,extended release 24 hr 25 mg PO DAILY 11/29/18 [History Last Taken 01/14/21] potassium chloride 10 mEq tablet,extended release 10 meq PO DAILY 11/29/18 [History Last Taken 01/14/21] vit C,E,zinc,copper-bgvya5a 250 mg-lutein 5 mg-zeaxanthin 1 mg capsule 1 cap PO DAILY 11/29/18 [History Last Taken 01/14/21] ibuprofen 200 mg tablet 200 - 400 mg PO Q6H PRN 05/03/19 [History Last Taken 01/15/21] apixaban 5 mg tablet 5 mg PO BID #60 tab 08/28/20 [Rx Last Taken 01/14/21] glucosamine 500 mg-msm 500 mg-Boswellia 33.3 mg-herb 182 70 mg tablet 1 tab PO DAILY PRN 11/21/20 [History Last Taken Unknown] magnesium hydroxide 400 mg (170 mg magnesium) chewable tablet 400 mg PO DAILY 11/21/20 [History Last Taken 01/14/21] levothyroxine 75 mcg PO DAILY 01/15/21 [History Last Taken 01/14/21] Allergy/AdvReac Type Severity Reaction Status Date / Time Penicillins [PCN] Allergy Rash Verified 01/15/21 10:33 lisinopril AdvReac Intermediate cough Verified 01/15/21 10:33 Family History Father , Age 70, ETOH abuse Hypertension ETOH abuse Surgical History History of cardioversion (07/02/18) History of tonsillectomy History of total right hip arthroplasty History of tubal ligation Social History Smoking Status: Never smoker alcohol intake: never substance use type: does not use ROS Constitutional Constitutional: Reports anorexia, chills, fatigue, malaise and weakness; Denies change in weight, fever(s), night sweats or other Eyes Eyes: Denies blurry vision, change in eye color, change in vision, discharge from eye(s), double vision, erythema, eye pain, loss of vision or other ENT HEENT: Denies abnormal hearing, dysphagia, ear pain, epistaxis, headache(s), hearing loss, nasal congestion, nasal discharge, post nasal drip, sinus pressure, sore throat or other Cardiovascular Cardiovascular: Reports dyspnea on exertion; Denies chest pain, claudication, edema, lightheadedness, orthopnea, palpitations, paroxysmal nocturnal dyspnea, rapid heart rate, syncope or other Respiratory/Chest Respiratory/Chest: Reports cough, shortness of breath at rest and shortness of breath with exertion; Denies dyspnea, excessive phlegm production, hemoptysis, productive cough, wheezing or other Gastrointestinal Gastrointestinal: Reports nausea; Denies abdominal pain, coffee ground emesis, constipation, diarrhea, dyspepsia, hematemesis, hematochezia, loose stools, melena, vomiting or other Genitourinary Genitourinary: Denies burning urination, difficulty urinating, dysuria, hematuria, nocturia, urinary frequency, urinary hesitancy, urinary incontinence, urinary urgency or other Musculoskeletal Musculoskeletal: Reports arthralgias, back pain, joint pain, joint stiffness and myalgias; Denies joint swelling, neck pain or other Neurologic Neurologic: Denies abnormal gait, abnormal speech, confusion, disequilibrium, dizziness, focal weakness, headache(s), numbness, paresthesias, seizure-like activity, seizures, syncope, tingling, tremor(s) or other Psychiatric Psychiatric: Denies anxiety, depression, homicidal ideation, suicidal ideation or other Endocrine Endocrinology: Denies change in body appearance, cold intolerance, excessive sweating, heat intolerance, polydipsia, polyuria or other Hematologic/Lymphatic Hematologic/Lymphatic: Denies anemia, easy bleeding, easy bruising, lymphadenopathy or other Allergic/Immunologic Allergic/Immunologic: Denies rhinitis, hives, eczemia, asthma or other Vital Signs Vital Signs Vital Signs: 01/15/21 10:27 01/15/21 10:32 01/15/21 10:40 Temperature 98.9 F 98.9 F Temperature Source Oral Oral Pulse Rate 63 57 L Respiratory Rate 14 17 Respiratory Effort Normal Respiratory Pattern Normal Blood Pressure 163/71 H 180/71 H Blood Pressure Mean 101 107 Pulse Ox 94 92 Pulse Ox [AMBULATING on Room Air] Pulse Ox [AMBULATING with Oxygen #1] Pulse Ox [At REST on Room Air] Oxygen Delivery Method Room Air Room Air Oxygen Flow Rate (L/min) Oxygen Flow Rate (L/min) [AMBULATING with Oxygen #1] 01/15/21 12:11 01/15/21 12:13 01/15/21 13:16 Temperature 98.6 F 97.9 F Temperature Source Oral Oral Pulse Rate 57 L 56 L Respiratory Rate 14 18 Respiratory Effort Respiratory Pattern Blood Pressure 138/65 H 138/64 H Blood Pressure Mean 89 88 Pulse Ox 92 98 Pulse Ox [AMBULATING on Room Air] 88 Pulse Ox [AMBULATING with Oxygen #1] 98 Pulse Ox [At REST on Room Air] 93 Oxygen Delivery Method Room Air Nasal Cannula Oxygen Flow Rate (L/min) 2 Oxygen Flow Rate (L/min) [AMBULATING with Oxygen #1] 2 01/15/21 14:06 Temperature 98.5 F Temperature Source Oral Pulse Rate 56 L Respiratory Rate 15 Respiratory Effort Respiratory Pattern Blood Pressure 164/61 H Blood Pressure Mean 95 Pulse Ox 100 Pulse Ox [AMBULATING on Room Air] Pulse Ox [AMBULATING with Oxygen #1] Pulse Ox [At REST on Room Air] Oxygen Delivery Method Nasal Cannula Oxygen Flow Rate (L/min) 2 Oxygen Flow Rate (L/min) [AMBULATING with Oxygen #1] Weight Weight: 78.1 kg Body Mass Index (BMI) 29.5 Physical Exam Const alert, oriented x3 and no apparent distress Constitutional Narrative: Elderly obese white female lying in bed, appears comfortable General Appearance: cooperative HEENT normocephalic, head/scalp atraumatic and moist oral mucous membranes HEENT Narrative: Mildly hard of hearing, fair dentition, Mallampati 2, no thrush Eyes PERRL, EOMs intact bilaterally and conjunctivae normal Eyes Narrative: No scleral icterus Neck no lymphadenopathy, supple and no JVD Neck Narrative: Trachea midline no thyroid enlargement Resp normal respiratory effort, no retractions, no use of accessory muscles and clear to auscultation bilaterally Auscultation: Negative for crackles, rales, rhonchi or wheezes Cardio regular rhythm, S1 normal heart sound, S2 normal heart sound, no murmurs, no rub, no gallops, no clicks and no JVD Cardio Narrative: Mild bradycardia GI normal to inspection, nondistended, normoactive bowel sounds, soft to palpation, non-tender and non-distended Extremity no clubbing, cyanosis or edema Extremity Narrative: He was able to move right hip in all directions without any pain elicited, pain reproduced with palpation to the right buttock area Peripheral Pulses: Yes pulses 2+ throughout Neuro oriented x3, CN's II-XII intact bilaterally, moves all extremities and no focal motor deficits Neuro Narrative: Significant generalized weakness but no focal deficits Sensorium / Orientation: awake and alert Speech: speech normal Psych Psych Narrative: Seems mildly anxious Results Lab / Micro Data Attestation: I reviewed the patient's lab results. Result Diagrams: 01/15/21 11:20 01/15/21 11:20 Labs: Laboratory Results - last 24 hr 01/15/21 11:20: WBC 2.1 L, RBC 4.08 L, Hgb 12.0, Hct 36.0 L, MCV 88.2, MCH 29.4, MCHC 33.3, RDW Std Deviation 44.0 H, RDW Coeff of Conchita 13.6, Plt Count 104 L, MPV 10.0, Immature Gran % (Auto) 0.500, Neut % (Auto) 63.6, Lymph % (Auto) 23.9, [place] % (Auto) 11.5 H, Eos % (Auto) 0.5, Baso % (Auto) 0.0, Absolute Neuts (auto) 1.3 L, Absolute Lymphs (auto) 0.50 L, Nucleated RBC % 0, Differential Comment SCANNED, Diff Path Review July01/15/21 11:20: Sodium 134 L, Potassium 3.6, Chloride 98, Carbon Dioxide 26.0, Anion Gap 10, BUN 10, Creatinine 0.83, Estim Creat Clear Calc 42.79, Est GFR (MDRD) Af Amer 84, Est GFR (MDRD) Non-Af 69, BUN/Creatinine Ratio 12.0, Glucose 108 H, Calcium 8.3 L, Total Bilirubin 0.50, AST 17, ALT 16, Alkaline Phosphatase 69, Total Protein 6.7, Albumin 3.0 L, Globulin 3.7, Albumin/Globulin Ratio 0.8 L Micro: Microbiology 01/15/21 11:20 Nasal Secretion SARS-CoV-2 Antigen (Rapid) - Final SARS-CoV-2 (COVID 19) Radiology Impression Chest X-Ray 01/15/21 11:40 IMPRESSION: Early right middle lobe infiltrate. Electronically Signed: Puma Le MD at 11:59 EDT , Service support , Hip/Pelvis X-Ray 01/15/21 13:11 IMPRESSION: Status post bilateral hip replacement. Electronically Signed: Puma Le MD at 13:49 EDT , Service support , Assessment & Plan Assessment/Plan (1) COVID-19 virus infection: (2) Hypoxia: (3) Leukopenia: (4) Thrombocytopenia: (5) Hypokalemia: (6) Back pain: PLAN: Acute COVID-19 infection -Patient is not hypoxic at rest but becomes hypoxic with ambulation -Continue supplemental oxygen as needed--> current 2 L with ambulation -Start Decadron day -Start remdesivir day -Admission is more for debility related to her Covid then hypoxia -Patient is fully anticoagulated with apixaban--> will continue -Incentive spirometry and Acapella -Sputum culture -PT and OT -Oral supplements Hypoxia -Mild hypoxia but does not meet criteria for acute hypoxic respiratory failure -Only with exertion at this time -Continue supplemental oxygen as needed -We will need assess for exertional hypoxia prior to discharge if patient is still on room air at rest Hypokalemia -Potassium replacement 40 mEq x 1 dose -Repeat a.m. lab -Check magnesium level Leukopenia/thrombocytopenia -Normal at baseline so I anticipate this is related to acute COVID-19 infection -Continue to monitor lab work Back pain -Was initially reported his hip pain but on my exam it is more related to a sciatic involvement -Patient with bilateral hip replacements and x-rays are negative for any abnormality -Pain medicine as needed with Tylenol at this time -Avoid narcotics to avoid delirium if able -PT/OT -Consider K pad if becomes problematic -Avoid NSAIDs with low platelet counts and age At risk for malnutrition -P.o. intake has been poor over the last 48 to 72 hours -Nutritional supplements -Monitor p.o. intake Hypothyroidism -Continue levothyroxine Hypertension -Continue losartan/HCTZ -Continue metoprolol 25 mg daily Hyperlipidemia -Continue simvastatin PAF -Continue metoprolol and Eliquis Depression -Continue sertraline DVT prophylaxis -Full anticoagulation Charges/Coding Visit Charges Inpatient E&M: 03116 Init Hosp L3
[2021-01-15] MEDS: Potassium Chloride Oral Tablet 20 MEQ 40 MEQ PO (16:05)
[2021-01-15] MEDS: Acetaminophen 325 MG Tablet 650 MG PO (18:07)
[2021-01-15] MEDS: Atorvastatin Calcium 10 MG Tablet 5 MG PO (21:44)
[2021-01-15] MEDS: APIXABAN 5 MG TABLET PO (21:44)
[2021-01-16] VITALS (10 sets, daily range): BP systolic 131–158; BP diastolic 54–58; PULSE 56–65; RESP 16–18; TEMP 36.3–37.2; O2SAT 94–98
[2021-01-16 06:11] LABS: Absolute Lymphocyte Count 0.81 X10^3/uL (0.83-4.51); Absolute Neutrophil Count 1.5 X10^3/uL (2.0-7.7); Hematocrit 36.7 % (37-47); Hemoglobin 11.8 g/dL (12.0-15.0); Lymphocyte # 0.81 X10^3/ul (0.83-4.51); Lymphocyte % 30.6 % (19-41); Mean Corp Hgb Conc 32.2 g/dL (32-36); Mean Corpuscular Hgb 28.5 pg (27.0-32.0); Mean Corpuscular Volume 88.6 fL (81-99); Mean Platelet Vol. 10.3 fl (6.2-12.0); Monocyte# 0.37 X10^3/uL; NRBC Flagged by Analyzer 0 % (0-5); Neutrophil # 1.46 X10^3/uL (2.7-7.7); Platelet Count 117 K/mm3 (150-450); RBC Distribution Width CV 13.5 % (11.6-14.6); RBC Distribution Width SD 44.2 fl (35.1-43.9); Red Blood Count 4.14 M/mm3 (4.2-5.4); White Blood Count 2.7 K/mm3 (4.4-11.0)
[2021-01-16 06:39] LABS: ALB/GLOB Ratio 0.7 RATIO (0.9-2.4); AST(SGOT) 15 U/L (15-37); Alanine Aminotransfer ALT/SGPT 18 U/L (13-56); Albumin, Serum 2.7 g/dL (3.2-5.0); Alkaline Phosphatase 61 U/L (45-117); Anion Gap 6 (5-15); BUN 25 mg/dL (7-18); BUN/Creat Ratio 30.1 RATIO (10-20); Calcium,Total 8.3 mg/dL (8.5-10.1); Chloride 101 mmol/L (98-107); Creatinine, Serum 0.83 mg/dL (0.55-1.02); EST Glomerular Filtration Rate 69 mL/min (>60); Est Glom Filt Rate - Afr Amer 84 mL/min (>60); Estimated Creatinine Clearance 42.79 ml/min; Globulin 3.8 g/dL (2.2-4.2); Glucose 119 mg/dL (74-106); Phosphorus 3.4 mg/dL (2.5-4.9); Potassium 4.5 mmol/L (3.5-5.1); Protein, Total 6.5 g/dL (6.4-8.2); Sodium Level 133 mmol/L (136-145)
[2021-01-16] MEDS: Metoprolol(XL)Succ 25 MG Tablet PO (09:17)
[2021-01-16] MEDS: dexAMETHasone 4 MG Tablet 6 MG PO (09:17)
[2021-01-16] MEDS: hydroCHLOROthiazide 12.5mg 12.5 MG PO (09:19)
[2021-01-16] MEDS: Losartan Potassium 50 MG Tablet PO (09:19)
[2021-01-16] MEDS: Acetaminophen 325 MG Tablet 650 MG PO ×2 (09:19→22:12)
[2021-01-16] MEDS: Magnesium Chloride 64 MG Delay Rel.Tablet 128 MG PO (09:19)
[2021-01-16] MEDS: Levothyroxine 75 MCG Tablet PO (09:19)
[2021-01-16] MEDS: APIXABAN 5 MG TABLET PO ×2 (09:19→22:11)
[2021-01-16] MEDS: 0.9% Saline Lock 10 ML Syringe IV (09:22)
[2021-01-16 13:23] LABS: Pathologist Review Reviewed
[2021-01-16] MEDS: Ibuprofen 400 MG Tablet PO (13:44)
--- NOTE | 2021-01-16 14:10 | CASEMGMT ---
RN CM Assessment Patient Covid positive- met with patient at bedside. Introduced role of RN CM to patient. Patient is alert, oriented and able to participate in RN CM Assessment. Care providers, pharmacy, and demographics verified. Admit Dx: Covid/Debility Re-Admit: no Barriers/Issues: Patient lives with 89yo and assists with his needs. is Covid positive and family is assisting him while patient is in the hospital. Patient is a retired nurse. [place] in house behind dtr Tyesha and son in [facility]. This consumer loan underwriter called Dtr Tyesha and spoke with Tyesha about DC plan per patient request and both patient and dtr agreeable. PCP: Quita Pena Specialists: Pod- Judy, Cardio- [place], [facility] - cpl times/yr- Dr Blas. Preferred Pharmacy: [facility] if open, if not- [facility], [place] Insurance: [employer] Rx Benefit: Yes LNOK: Ty Quintana LW/HPOA: Has LW with health care attorney, HPOA- Dtr Tyesha Dee Living Arrangements: See above note. Lives w/ in H, bedroom on [facility] [place], has put a couple twin beds in living room for her and during illness with Covid. 1 step to enter home through garage and 2 through front. ADL?s: Independent with ambulation and ADLs Transportation: Patient drives DME: None. In Network list provided and [employer] is preference. [facility] would be second preference. HHC: None. In network list provided and [facility] first preference and [facility] second preference. SNF: Rehab at [facility], U in past for past Hip surgeries. Goal: Home with HH PT/OT/SN with [facility]. Does not think will need an Aide as she is still able to perform daily care independently. States family to call her house keeper that she uses once every two months- Amber to see if she can clean once a week for a bit. Walker order with [employer] and if home O2 needed. Will need private caregiver list for as discussed with mayela Arambula in case wants to hire so patient will not do too much for while recovering. DC PLAN: Home with HH PT/OT/SN-[facility] HH, [facility] and possible home O2-[employer]. RICKY James
--- NOTE | 2021-01-16 15:53 | PCM.PN.HOSP ---
Subjective Subjective Follow-up on debility/acute hypoxic respiratory failure secondary to acute COVID-19 pneumonia: Patient was seen and examined. She feels improved. Denied any new complaints. She is on 1 to 2 L of oxygen Objective Data Objective Data Vital Signs: Vital Signs Temp Pulse Resp BP Pulse Ox 99.0 F 58 L 18 131/54 H 97 01/16/21 13:50 01/16/21 13:50 01/16/21 13:50 01/16/21 13:50 01/16/21 14:15 Oxygen Flow Rate (L/min) [ 2 AMBULATING with Oxygen #1] Oxygen Flow Rate (L/min) 1 Oxygen Delivery Method Room Air Weight: 76.3 kg Body Mass Index (BMI) 28.8 Intake & Output: Intake and Output for Last 24 Hours 01/14/21 01/15/21 01/16/21 23:59 23:59 23:59 Intake Total 950 / 950 250 / 250 Balance 950 / 950 250 / 250 Lab / Micro Data Result Diagrams: 01/16/21 05:36 01/16/21 05:36 Labs: Laboratory Results - last 24 hr 01/15/21 11:20: Diff Path Review Reviewed 01/16/21 05:36: WBC 2.7 L, RBC 4.14 L, Hgb 11.8 L, Hct 36.7 L, MCV 88.6, MCH 28.5, MCHC 32.2, RDW Std Deviation 44.2 H, RDW Coeff of Conchita 13.5, Plt Count 117 L, MPV 10.3, Immature Gran % (Auto) 0.400, Neut % (Auto) 55.0, Lymph % (Auto) 30.6, [place] % (Auto) 14.0 H, Eos % (Auto) 0.0, Baso % (Auto) 0.0, Absolute Neuts (auto) 1.5 L, Absolute Lymphs (auto) 0.81 L, Nucleated RBC % 0 01/16/21 05:36: Sodium 133 L, Potassium 4.5, Chloride 101, Carbon Dioxide 26.0, Anion Gap 6, BUN 25 H, Creatinine 0.83, Estim Creat Clear Calc 42.79, Est GFR (MDRD) Af Amer 84, Est GFR (MDRD) Non-Af 69, BUN/Creatinine Ratio 30.1 H, Glucose 119 H, Calcium 8.3 L, Phosphorus 3.4, Magnesium 2.0, Total Bilirubin 0.30, AST 15, ALT 18, Alkaline Phosphatase 61, Total Protein 6.5, Albumin 2.7 L, Globulin 3.8, Albumin/Globulin Ratio 0.7 L Micro: Microbiology 01/15/21 11:20 Nasal Secretion SARS-CoV-2 Antigen (Rapid) - Final SARS-CoV-2 (COVID 19) Physical Exam Narrative Physical exam: General: Alert, Oriented x3, Cooperative, appears frail HEENT: Atraumatic Oral: Moist Mucosa Neck: Supple Lungs: Clear to auscultation Cardiovascular: HS I+II, regular, no murmurs Abdomen: Bowel Sounds Present, Soft, Non Tender Extremities: No edema Assessment & Plan Assessment/Plan (1) COVID-19 virus infection: (2) Hypoxia: (3) Leukopenia: QUALIFIERS: Neutropenia type: unspecified (4) Thrombocytopenia: (5) Hypokalemia: (6) Back pain: QUALIFIERS: Back pain location: back pain in unspecified location Back pain laterality: unspecified PLAN: 1. Acute hypoxic respiratory failure secondary to acute COVID-19 pneumonia Patient is currently on 1 to 2 L of oxygen, continue on Decadron and Remdesivir 2. Hypokalemia, resolved 3. Rest of her chronic medical conditions including hypothyroidism, hypertension, hyperlipidemia, PAF, depression remain stable Home meds reviewed Continue on diltiazem, metoprolol and apixaban Charges/Coding Visit Charges Inpatient E&M: 96504 Subs Hosp L2
--- NOTE | 2021-01-16 20:02 | PCS.PANDOC ---
PANDEMIC DOCUMENTATION INITIATED: Date: 11/05/2020 Time: 190
[2021-01-16] MEDS: Atorvastatin Calcium 10 MG Tablet 5 MG PO (22:11)
[2021-01-16] MEDS: Sertraline 50 MG Tablet PO (22:12)
[2021-01-17 04:00] VITALS: BP 165/65; PULSE 53; RESP 16; TEMP 37.1; O2SAT 95
[2021-01-17 06:29] LABS: Absolute Lymphocyte Count 1.01 X10^3/uL (0.83-4.51); Absolute Neutrophil Count 1.8 X10^3/uL (2.0-7.7); Hematocrit 36.8 % (37-47); Hemoglobin 12.2 g/dL (12.0-15.0); Lymphocyte # 1.01 X10^3/ul (0.83-4.51); Mean Corp Hgb Conc 33.2 g/dL (32-36); Mean Corpuscular Volume 87.4 fL (81-99); Mean Platelet Vol. 10.4 fl (6.2-12.0); Monocyte# 0.24 X10^3/uL; Monocyte% 7.8 % (0-10); NRBC Flagged by Analyzer 0 % (0-5); Neutrophil % 58.9 % (47-70); Platelet Count 137 K/mm3 (150-450); RBC Distribution Width CV 13.6 % (11.6-14.6); RBC Distribution Width SD 43.8 fl (35.1-43.9); Red Blood Count 4.21 M/mm3 (4.2-5.4); White Blood Count 3.1 K/mm3 (4.4-11.0)
[2021-01-17 06:57] LABS: ALB/GLOB Ratio 0.8 RATIO (0.9-2.4); AST(SGOT) 20 U/L (15-37); Alanine Aminotransfer ALT/SGPT 16 U/L (13-56); Alkaline Phosphatase 64 U/L (45-117); Anion Gap 7 (5-15); BUN 25 mg/dL (7-18); BUN/Creat Ratio 33.3 RATIO (10-20); Calcium,Total 8.6 mg/dL (8.5-10.1); Chloride 104 mmol/L (98-107); Creatinine, Serum 0.75 mg/dL (0.55-1.02); EST Glomerular Filtration Rate 78 mL/min (>60); Est Glom Filt Rate - Afr Amer 94 mL/min (>60); Estimated Creatinine Clearance 35.52 ml/min; Globulin 3.6 g/dL (2.2-4.2); Glucose 111 mg/dL (74-106); Potassium 4.3 mmol/L (3.5-5.1); Protein, Total 6.6 g/dL (6.4-8.2); Sodium Level 135 mmol/L (136-145)
--- NOTE | 2021-01-17 08:05 | PCM.DC ---
Discharge Instructions Diet Discharge Diet: 2000 mg Sodium Diet Activity Discharge Activity: Return to Normal Activity Follow Up Care Test Results: Test results from this visit will be discussed in further detail at your follow-up appointment, if applicable. Discharge Plan Admission Admit Date/Time: 01/15/21 14:16 Primary Reason for Your Visit: ACute COVID-19 pneumonia Attending Provider: Makayla Sidhu Primary Care Provider: Quita Pena Instructions Additional Instructions / Restrictions: Complete your Decadron treatment. Continue to use incentive spirometer. Continue to keep your self quarantine for total of 20 days. Follow-up with your primary care doctor within 1 to 2 weeks after discharge Discharge Orders/Prescriptions Prescriptions: New dexamethasone 4 mg Tablet 6 mg PO DAILY 8 Days Qty: 12 RF: 0 Continued metoprolol succinate 25 mg tablet extended release 24 hr 25 mg PO DAILY RF: 0 potassium chloride 10 mEq tablet extended release 10 meq PO DAILY RF: 0 Ocuvite Adult 50 Plus 250-5-1 mg capsule 1 cap PO DAILY RF: 0 Cosamin Hawley (with Boswellia) 500-500-33.3-70 mg tablet 1 tab PO DAILY PRN (Reason: JOINTS) RF: 0 magnesium hydroxide 400 mg (170 mg magnesium) tablet,chewable 400 mg PO DAILY RF: 0 simvastatin 10 MG tablet 10 mg PO QHS RF: 0 sertraline 50 MG tablet 50 mg PO DAILY RF: 0 losartan-hydrochlorothiazide 50-12.5 mg tablet 1 tab PO DAILY RF: 0 levothyroxine 75 mcg tablet 75 mcg PO DAILY RF: 0 apixaban 5 mg tablet 5 mg PO BID Qty: 60 RF: 11 Discontinued ibuprofen [Advil] 200 mg tablet 200 - 400 mg PO Q6H PRN (Reason: Pain) RF: 0 Referrals / Follow Up: Quita Pena MD [Primary Care Provider] - Within 2 Weeks Disposition Disposition (needs filled in before D/C Order can be placed): Home Health Service
[2021-01-17 08:54] VITALS: O2SAT 93
[2021-01-17 09:00] VITALS: BP 161/58; PULSE 55; RESP 18; TEMP 36.9; O2SAT 94
[2021-01-17] MEDS: Magnesium Chloride 64 MG Delay Rel.Tablet 128 MG PO (09:03)
[2021-01-17] MEDS: dexAMETHasone 4 MG Tablet 6 MG PO (09:03)
[2021-01-17] MEDS: Losartan Potassium 50 MG Tablet PO (09:04)
[2021-01-17] MEDS: hydroCHLOROthiazide 12.5mg 12.5 MG PO (09:04)
[2021-01-17] MEDS: Levothyroxine 75 MCG Tablet PO (09:04)
[2021-01-17] MEDS: APIXABAN 5 MG TABLET PO (09:04)
[2021-01-17 09:09] VITALS: O2SAT 93
[2021-01-17] MEDS: Ondansetron 4 MG/2 ML Vial IV (09:16)
--- NOTE | 2021-01-17 10:30 | CASEMGMT ---
CHARMAINE AVELAR NOTE: Per Dr Sidhu, she plans to discharge pt home today. Per note from CM Kenny yesterday pt would like [facility]. TC to Katia @ [facility] and referral made for SN, PT/OT. She was notified pt discharging home today. They are able to accept pt. Per Leora MONTANO, pt having concerns w/discharging home. Pt currently on RA. Amb pulse ox has been completed and pt does not require O2 @ rest or w/ambulation. PT/OT notes from yesterday 01/16 reviewed. Pt ambulated 75 ft w/SBA and did not require use of walker. Per nursing, pt has been getting up in room w/SBA and has not needed to use walker with them either. CHARMAINE AVELAR to room to talk w/pt. Pt states she still feels weak and has some concerns re: discharging home. She states she thinks she will do okay at home and realizes she will need to continue to rest and that it will take time to recover from COVID, but she is concerned, d/t her husbands recent illness, that she will need to tend to him and not be able to get the rest she needs. She states she does have family that live nearby and are supportive and she thinks they will be willing to help, but she is still concerned. Pt states her ARPIT, Haroon, is retired and he lives nearby and has been stopping by to check on her while she is in the hospital. She states her is able to get up/ambulate and cares for himself but often will ask her to help w/various things and again states she is concerned she will not be able to rest like she needs to. This RN VALENTINO inquired if call could be placed to one of her family members to discuss her concerns. Pt states she would appreciate that and asked CHARMAINE AVELAR to call ARPIT Patiño, since her dtr, Tyesha, is @ work. TC to Haroon while CHARMAINE AVELAR in room w/pt. Haroon made aware that pt has been ambulating well in room w/SBA and does not need walker, that she was able to ambulate 75 ft yesterday w/out difficulty, she is not requiring O2 @ d/c, and that from a medical perspective, she is ready for d/c home. He was also made aware of pt's concerns as noted above. Haroon stated, We'll take care of things for her. He confirms that he has been stopping by to check on pt's and that he and other family will continue to help as pt and her recover. Pt and Haroon both made aware [facility] has been set up for pt and they will be contacting pt to make arrangements for start of care. Haroon voices appreciation for the call and states he will take pt home @ discharge when she is ready. Pt stated after talking w/RN VALENTINO and TC to Haroon that she feels much better about discharging home today. Pt was also provided w/list of local agencies that provide private-duty aides. Pt voices appreciation. She denies need of walker and denies any other discharge planning needs or concerns. Plan[facility], family support, and discharge plans in place. Angel CONTRERAS RN, CM
--- NOTE | 2021-01-17 11:39 | PCM.DC.SUM ---
Providers Date of Admission: 01/15/21 Date of Discharge: 01/17/21 Primary Care Physician: Dr. Quita Pena MD Reason For Visit: COVID 19/ DEBILITY Diagnosis Discharge Diagnosis (1) COVID-19 virus infection: Status: Acute Code(s): U07.1 - COVID-19 (2) Hypoxia: Status: Resolved Code(s): R09.02 - Hypoxemia (3) Leukopenia: Status: Acute Code(s): D72.819 - Decreased white blood cell count, unspecified Qualifiers: Neutropenia type: unspecified (4) Thrombocytopenia: Status: Acute Code(s): D69.6 - Thrombocytopenia, unspecified (5) Hypokalemia: Status: Resolved Code(s): E87.6 - Hypokalemia (6) Back pain: Status: Chronic Code(s): M54.9 - Dorsalgia, unspecified Qualifiers: Back pain laterality: unspecified Back pain location: back pain in unspecified location Medications at Discharge Home Medications sertraline 50 mg PO DAILY 08/26/16 simvastatin 10 mg PO QHS 08/26/16 losartan 50 mg-hydrochlorothiazide 12.5 mg tablet 1 tab PO DAILY 11/29/18 metoprolol succinate 25 mg tablet,extended release 24 hr 25 mg PO DAILY 11/29/18 potassium chloride 10 mEq tablet,extended release 10 meq PO DAILY 11/29/18 vit C,E,zinc,copper-jjhop1q 250 mg-lutein 5 mg-zeaxanthin 1 mg capsule 1 cap PO DAILY 11/29/18 apixaban 5 mg tablet 5 mg PO BID #60 tab 08/28/20 glucosamine 500 mg-msm 500 mg-Boswellia 33.3 mg-herb 182 70 mg tablet 1 tab PO DAILY PRN 11/21/20 magnesium hydroxide 400 mg (170 mg magnesium) chewable tablet 400 mg PO DAILY 11/21/20 levothyroxine 75 mcg PO DAILY 01/15/21 dexamethasone 6 mg PO DAILY 8 Days #12 tab 01/17/21 Hospital Course Operations None Procedures None Summary of Care Provided Minutes Spent on Discharge: 45 Hospital Course: 85-year-old female who has been vaccinated comes in with generalized weakness ongoing for 2 to 3 days. This is associated with cough, poor p.o. intake, change in taste but no smell, chills and subjective fever. She and her are positive for the infection. She came in because she has right hip pain, history of compression fractures, that has been bothering her. Her oxygen sat was 92% on room air but she desaturated into the 80s with ambulation. Chest x-ray showed right middle lobe infiltrate. Her hip and pelvic x-ray showed no acute ab normality. Patient was admitted on account of debility. She was managed on oxygen, started on remdesivir and Decadron. She felt improved. She was off oxygen at discharge. She was discharged to complete 10 days of Decadron. She will follow-up with her primary care doctor in the outpatient. Physical Exam Narrative Physical exam: General: Alert, Oriented x3, Cooperative, appears frail HEENT: Atraumatic Oral: Moist Mucosa Neck: Supple Lungs: Clear to auscultation Cardiovascular: HS I+II, regular, no murmurs Abdomen: Bowel Sounds Present, Soft, Non Tender Extremities: No edema Weight / BMI Weight Weight: 76.3 kg Body Mass Index (BMI) 28.8 ABG / Lab / Microbiology Data Result Diagrams: 01/17/21 06:22 01/17/21 06:22 Laboratory: Laboratory Results - last 24 hr 01/15/21 11:20: Diff Path Review Reviewed 01/17/21 06:22: WBC 3.1 L, RBC 4.21, Hgb 12.2, Hct 36.8 L, MCV 87.4, MCH 29.0, MCHC 33.2, RDW Std Deviation 43.8, RDW Coeff of Conchita 13.6, Plt Count 137 L, MPV 10.4, Immature Gran % (Auto) 0.300, Neut % (Auto) 58.9, Lymph % (Auto) 33.0, Mcpherson % (Auto) 7.8, Eos % (Auto) 0.0, Baso % (Auto) 0.0, Absolute Neuts (auto) 1.8 L, Absolute Lymphs (auto) 1.01, Nucleated RBC % 0 01/17/21 06:22: Sodium 135 L, Potassium 4.3, Chloride 104, Carbon Dioxide 24.0, Anion Gap 7, BUN 25 H, Creatinine 0.75, Estim Creat Clear Calc 35.52, Est GFR (MDRD) Af Amer 94, Est GFR (MDRD) Non-Af 78, BUN/Creatinine Ratio 33.3 H, Glucose 111 H, Calcium 8.6, Total Bilirubin 0.30, AST 20, ALT 16, Alkaline Phosphatase 64, Total Protein 6.6, Albumin 3.0 L, Globulin 3.6, Albumin/Globulin Ratio 0.8 L Microbiology: Microbiology 01/15/21 11:20 Nasal Secretion SARS-CoV-2 Antigen (Rapid) - Final SARS-CoV-2 (COVID 19) D/C Instructions Discharge Diet: 2000 mg Sodium Diet Meaningful Use Info Meaningful Use Diagnoses (Choose all that apply): None applicable Discharge Plan Admission Admit Date/Time: 01/15/21 14:16 Primary Reason for Your Visit: Acute COVID-19 pneumonia Attending Provider: Makayla Sidhu Primary Care Provider: Quita Pena Instructions Additional Instructions / Restrictions: Complete your Decadron treatment. Continue to use incentive spirometer. Continue to keep your self quarantine for total of 20 days. Follow-up with your primary care doctor within 1 to 2 weeks after discharge Discharge Orders/Prescriptions Prescriptions: New dexamethasone 4 mg Tablet 6 mg PO DAILY 8 Days Qty: 12 RF: 0 Continued metoprolol succinate 25 mg tablet extended release 24 hr 25 mg PO DAILY RF: 0 potassium chloride 10 mEq tablet extended release 10 meq PO DAILY RF: 0 Ocuvite Adult 50 Plus 250-5-1 mg capsule 1 cap PO DAILY RF: 0 Cosamin [place] (with Boswellia) 500-500-33.3-70 mg tablet 1 tab PO DAILY PRN (Reason: JOINTS) RF: 0 magnesium hydroxide 400 mg (170 mg magnesium) tablet,chewable 400 mg PO DAILY RF: 0 simvastatin 10 MG tablet 10 mg PO QHS RF: 0 sertraline 50 MG tablet 50 mg PO DAILY RF: 0 losartan-hydrochlorothiazide 50-12.5 mg tablet 1 tab PO DAILY RF: 0 levothyroxine 75 mcg tablet 75 mcg PO DAILY RF: 0 apixaban 5 mg tablet 5 mg PO BID Qty: 60 RF: 11 Discontinued ibuprofen [Advil] 200 mg tablet 200 - 400 mg PO Q6H PRN (Reason: Pain) RF: 0 Referrals / Follow Up: Quita Pena MD [Primary Care Provider] - Within 2 Weeks Disposition Disposition (needs filled in before D/C Order can be placed): Home Health Service Charges/Coding Visit Charges Inpatient E&M: 77796 Disch Hosp
[2021-01-17 14:02] VITALS: BP 137/56; PULSE 60
[2021-01-17] MEDS: Metoprolol(XL)Succ 25 MG Tablet PO (14:02)
[2021-01-17 14:04] VITALS: BP 137/56; PULSE 60; RESP 16; O2SAT 95
--- NOTE | 2021-01-18 11:49 | CASEMGMT ---
CHARMAINE AVELAR Discharge Follow-Up Phone Call. Laura: Ami Strata: 2 Discharge Date: 01/17/21 Adm Dx: COVID, debility Call to pt to inquire about how she has been doing since being discharged from the hospital. Pt's , Ty, answered. He stated Sara is in the bathroom but he could speak to RN VALENTINO. He states Sara has been doing pretty good and breathing is pretty good. He states he thinks Sara got the new prescription prior to leaving the hospital and he thinks she spoke w/her PCP for an appt, but is not sure. He states the nurse from [facility] is planning on arriving @ their home today between 12 and 1. CHARMAINE AVELAR asked to have pt talk w/[facility] nurse when she arrives if she has any questions/concerns re: medications/instructions/appts or she can call this RN CM back. He voices understanding and thanked RN CM for calling. Ty did state their dtr and [facility] live close-by and stop in to check on them periodically and are available as needed. Angel HATCHN CHARMAINE CM
== END 2021-01-17 14:50 | disposition home health service (06) | DRG 177 ==
LOC: ED 14:06 → MS3 14:28
PROVIDERS: Admitting Provider Internal Medicine; Emergency Provider Student in an Organized Health Care Education/Training Program; PCP Internal Medicine; Visit Provider Internal Medicine
DX: U07.1 COVID-19 (principal); J12.82 Pneumonia due to coronavirus disease 2019; J96.01 Acute respiratory failure with hypoxia; E87.1 Hypo-osmolality and hyponatremia; E87.6 Hypokalemia; R53.81 Other malaise; I48.91 Unspecified atrial fibrillation; M54.31 Sciatica, right side; M16.12 Unilateral primary osteoarthritis, left hip; I48.0 Paroxysmal atrial fibrillation; I10 Essential (primary) hypertension; E78.5 Hyperlipidemia, unspecified; E03.9 Hypothyroidism, unspecified; F32.A Depression, unspecified; Z79.01 Long term (current) use of anticoagulants; Z79.890 Hormone replacement therapy; Z79.899 Other long term (current) drug therapy; Z96.643 Presence of artificial hip joint, bilateral
CPT/HCPCS: 36415; 71045; 73502; 80053; 83735; 84100; 85025; 87426; 94667; 94668; 97161; 97166; 99251; 99285; J7050; A4216; G0463; J2405

== ENCOUNTER 2021-06-24 10:20 | Outpatient (CLI) | payer MEDICARE, SELFPAY ==
[2021-06-24 12:06] LABS: Absolute Lymphocyte Count 2.05 X10^3/uL (0.83-4.51); Absolute Neutrophil Count 1.7 X10^3/uL (2.0-7.7); Basophil# 0.02 X10^3/uL; Basophil% 0.5 % (0-1); Eosinophil# 0.07 X10^3/uL; Eosinophils% 1.6 % (0-5); Hematocrit 40.4 % (37-47); Lymphocyte # 2.05 X10^3/ul (0.83-4.51); Lymphocyte % 47.8 % (19-41); Mean Corp Hgb Conc 32.2 g/dL (32-36); Mean Corpuscular Hgb 28.7 pg (27.0-32.0); Mean Corpuscular Volume 89.2 fL (81-99); Mean Platelet Vol. 9.8 fl (6.2-12.0); Monocyte# 0.45 X10^3/uL; Monocyte% 10.5 % (0-10); NRBC Flagged by Analyzer 0 % (0-5); Neutrophil # 1.68 X10^3/uL (2.7-7.7); Neutrophil % 39.1 % (47-70); Platelet Count 180 K/mm3 (150-450); RBC Distribution Width CV 13.6 % (11.6-14.6); RBC Distribution Width SD 44.5 fl (35.1-43.9); Red Blood Count 4.53 M/mm3 (4.2-5.4); White Blood Count 4.3 K/mm3 (4.4-11.0)
[2021-06-24 12:12] LABS: Magnesium 2.1 mg/dL (1.6-2.6)
[2021-06-24 12:36] LABS: ALB/GLOB Ratio 1.2 RATIO (0.9-2.4); AST(SGOT) 15 U/L (15-37); Alanine Aminotransfer ALT/SGPT 19 U/L (13-56); Albumin, Serum 3.9 g/dL (3.2-5.0); Alkaline Phosphatase 69 U/L (45-117); Anion Gap 6 (5-15); BUN 30 mg/dL (7-18); BUN/Creat Ratio 30.3 RATIO (10-20); Calcium,Total 8.6 mg/dL (8.5-10.1); Chloride 102 mmol/L (98-107); Cholesterol 193 mg/dL (200); Creatinine, Serum 0.99 mg/dL (0.55-1.02); EST Glomerular Filtration Rate 57 mL/min (>60); Est Glom Filt Rate - Afr Amer 68 mL/min (>60); Globulin 3.2 g/dL (2.2-4.2); Glucose 87 mg/dL (74-106); High Density Lipoprotein 59 mg/dL; Potassium 4.6 mmol/L (3.5-5.1); Protein, Total 7.1 g/dL (6.4-8.2); Sodium Level 137 mmol/L (136-145); T4 Free Direct 1.13 ng/dL (0.76-1.46); Thyroid Stim Hormone (TSH) 2.62 uIU/mL (0.358-3.74); Triglycerides 101 mg/dL; Very Low Density Lipoprotein 20 mg/dL (5-40)
== END 2021-06-24 23:59 | disposition home or self-care (01) ==
LOC: BIMLAB 10:22
PROVIDERS: PCP Internal Medicine; Referring Provider Internal Medicine; Visit Provider Internal Medicine
DX: I10 Essential (primary) hypertension (principal); D69.6 Thrombocytopenia, unspecified; D72.819 Decreased white blood cell count, unspecified
CPT/HCPCS: 36415; 80053; 80061; 83735; 84439; 84443; 84481; 85025

== ENCOUNTER → 2021-08-20 | Outpatient (CLI) | payer MEDICARE, SELFPAY | END | disposition home or self-care (01) | LOC: PSN 12:17 | PROVIDERS: PCP Internal Medicine; Referring Provider Internal Medicine Cardiovascular Disease; Visit Provider Internal Medicine Cardiovascular Disease | DX: I48.91 Unspecified atrial fibrillation (principal) | CPT/HCPCS: 93225; 93226 ==

== ENCOUNTER → 2021-10-10 | Outpatient (CLI) | payer MEDICARE, SELFPAY ==
--- NOTE | 2021-10-10 13:36 | BI_ITS ---
MAMMOGRAPHY - BILATERAL DIAGNOSTIC REASON FOR EXAM: Female, 86 years old. Left periareolar skin thickening. PERTINENT HISTORY: Daughter with breast cancer. TECHNIQUE: Digital bilateral breast tommy (3D mammographic acquisition) in the CC and MLO projections. 2-D mediolateral oblique (MLO) and craniocaudad (CC) views of both breasts were obtained. CAD: Full Field Digital Mammography with Computer Added Detection was performed. COMPARISON: Comparison is made with prior outside examination dated 05/20/2017. FINDINGS: Breast Composition: There are scattered areas of fibroglandular density. Prominent density in the left retroareolar region. There is evidence of a significant thickening in the left periareolar region. Paget''s disease should be ruled out. Correlation with ultrasound is recommended. No other significant abnormalities are identified. BI/DIAG MAMM W/CAD, BILAT IMPRESSION: Dominant left retroareolar soft tissue density with subtle overlying left periareolar skin thickening. Paget''s disease should be ruled out. Targeted ultrasound is recommended. ASSESSMENT CATEGORY: BIRADS Category 0: Incomplete. Need additional imaging evaluation. A letter regarding these results will be sent to the patient by the facility within 30 days. Approximately 10% of breast cancers are not detected by mammography. A normal mammogram should not delay biopsy of a clinically suspicious abnormality. Electronically Signed: Puma Le MD at 14:23 EDT ,
--- NOTE | 2021-10-10 13:36 | US_ITS ---
STUDY: ULTRASOUND BREAST - LEFT REASON FOR EXAM: Female, 86 years old. Abnormal screening mammogram. Left breast lump. TECHNIQUE: Axial and longitudinal images of the LEFT breast were performed with a high resolution ultrasound transducer. # OF IMAGES: 28 COMPARISON: Comparison is made with prior mammogram done earlier today. FINDINGS: LEFT Breast: There is evidence of a 2.6 cm x 1.6 x 1.7 cm irregular hypoechoic solid mass at the 2 o''clock position of the left breast at 1 cm from the areola. Increased vascularity is seen. Biopsy recommended. US/Breast Limited Unilateral IMPRESSION: 2.6 cm x 1.6 cm x 1.7 cm irregular hypoechoic solid mass at the 2 o''clock position of the left breast at 1 cm from the areola with increased vascularity. Biopsy recommended. ASSESSMENT CATEGORY: BIRADS Category 5: Highly Suggestive of Malignancy - Appropriate Action Should Be Taken. A letter regarding these results will be sent to the patient by the facility within 30 days. Electronically Signed: Puma Le MD at 14:54 EDT ,
== END | disposition home or self-care (01) ==
PROVIDERS: PCP Internal Medicine; Visit Provider Obstetrics & Gynecology
DX: N63.21 Unspecified lump in the left breast, upper outer quadrant (principal); Z80.3 Family history of malignant neoplasm of breast
CPT/HCPCS: 76642; 77062; 77066; G0279

== ENCOUNTER → 2021-10-16 | Outpatient (CLI) | payer MEDICARE, SELFPAY ==
--- NOTE | 2021-10-16 | IMM_PTH ---
PATIENT: LIGIA DIAZ LOC: [facility] U#:[id number] AGE/SX: 86/F ROOM: RE10/16/[address]: Dr. Javier Jones MD : 1935 BED: DIS: 10/16/2021 SPEC #: [id number] RECD: 10/18/21 12:04 STATUS: LEXIE KELLER #: [id number] WESLEY: 10/16/21 00:[address]: Javier Jones DEPT: IMMUNOHISTOCHEMISTRY RECD BY: Daylin Ponce ENTERED: 10/18/21 12:05 SP TYPE: IMMUNO OTHR DR: Dr. Quita Pena MD Tissues: Left breast, NOS Procedures: CALPONIN-1 (add) CK5-6 (add) CK8 (add) E-CAD (add) HER2 RANDOLPH (add) KI-67 (add) P53 (add) OK (add) P40 (add) ER (initial) PHYSICIAN & INSTITUTION [address] [address] SPECIMEN INFORMATION: Tissue Source: Left breast tissue Clinical Info: Abnormal left breast ultrasound Specimen Number: [id number] CPT code: 94820, 42389 x6, 98239 x3 METHODOLOGY: Deparaffinized sections of prefer/formalin-fixed tissue or PAP/DQ stained slides are incubated with monoclonal/polyclonal antibodies/oligonucleotide probes. Localization is made via biotin free immunoperoxidase method. Appropriate controls are performed and reacted as expected. Results on target cell population are indicated in the following table: RESULTS: ANTIBODY / CLONE RESULT E-Cad (ECH-6) positive CK8 (58uecuJ01) positive Calponin-1 (BB349I) negative * CK5-6 (D5 & 1684) negative * P40 (BC28) negative * P53 (DO-7) positive, low Ki-67 (30-9) positive, low *?Positive in ductal carcinoma in situ. ?Moderate in ductal carcinoma in situ. MORPHOMETRIC ANALYSIS ER (clone 6F11) >95%, strong intensity OK (clone 16/1E2) >95%, strong intensity Her-2Neu (clone CB11) 0 The prognostic test for HER2 is performed on formalin-fixed paraffin embedded tissue. A 3+ (positive) staining pattern is defined as intense, homogeneous, complete, circumferential membranous staining in >10% of contiguous tumor cells. A similar weak (2+) staining pattern is interpreted as equivocal. GENA follow-up testing is recommended for all equivocal cases. Positivity/negativity for ER/OK is reported if > or < 1% of the tumor cells are immuno- reactive, respectively. The ASCO/CAP criteria is used for scoring. Reference: Journal of Clinical Oncology, 2013; 31:3402-5082 & 2010; 16:7141-1823. Duration of fixation: 29.5 Hrs; Sample Adequate: Yes. These assays have not been validated on decalcified tissues. Results should be interpreted with caution given the likelihood of false negativity on decalcified specimens. These tests were developed and their performance characteristics determined by [facility]. They may not have been cleared or approved by the U.S. Food and Drug Administration. The FDA has determined that such clearance or approval is not necessary. The above immunohistochemical/dualISH markers are ordered and reviewed by the Pathologist. 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 Positive for estrogen receptors (favorable prognostic indicator). Positive for progesterone receptors (favorable prognostic indicator). Negative for overexpression of GYS3cwp. SJ:laci 10/21/2021
--- NOTE | 2021-10-16 14:05 | BRBX_PTH ---
PATIENT: LIGIA DIAZ LOC: [facility] U#:[id number] AGE/SX: 86/F ROOM: RE10/16/[address]: Dr. Javier Jones MD : 1935 BED: DIS: 10/16/2021 SPEC #: [id number] RECD: 10/16/21 15:36 STATUS: LEXIE KELLER #: [id number] WESLEY: 10/16/21 14:[address]: Javier Jones DEPT: SURGICAL PATHOLOGY RECD BY: Rodolfo Sinha ENTERED: 10/17/21 07:24 SP TYPE: BREAST BX OTHR DR: Dr. Quita Pena MD Tissues: Left breast, NOS Procedures: Surgery Specimen Level IV HEADER OPERATION: Left breast biopsy PRE-OP DIAGNOSIS: Abnormal left breast ultrasound TISSUE SUBMITTED: Left breast tissue FIXATION TIME: 29.5 hours MICROSCOPIC DIAGNOSIS Left breast tissue, core biopsy: Invasive ductal carcinoma, nuclear grade 2 (0.4 cm in greatest length). See comment. 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 Immunohistochemistry ([id number]) supports the above diagnosis. ER/NJ/Cki1cpo studies are being performed on sections of tumor and the results from this study will be reported separately ([id number]). MICROSCOPIC DESCRIPTION Slides are reviewed. GROSS DESCRIPTION Received in fixative is one container labeled with the patient's name and designated left breast. The specimen consists of an elongated fragment of tapia-yellow fibroadipose tissue measuring 1.5 cm in length and 0.1 cm in diameter. The entire specimen is submitted in one cassette. / ENDY:laci 10/17/2021 TC:0 CPT: 89203
== END | disposition home or self-care (01) ==
LOC: LABSPEC 15:48
PROVIDERS: PCP Internal Medicine; Visit Provider Surgery
DX: D05.12 Intraductal carcinoma in situ of left breast (principal)
CPT/HCPCS: 88305; 88341; 88342

== ENCOUNTER → 2021-10-18 | Outpatient (CLI) | payer MEDICARE, SELFPAY ==
--- NOTE | 2021-10-18 12:34 | US_ITS ---
STUDY: ULTRASOUND BREAST - LEFT REASON FOR EXAM: Female, 86 years old. Left axillary lump. TECHNIQUE: Axial and longitudinal images of the LEFT breast were performed with a high resolution ultrasound transducer. # OF IMAGES: 33 COMPARISON: None. FINDINGS: LEFT Breast: Multiple lymph nodes are seen. There is a suspicious lymph node measuring 1.3 cm x 1.3 cm x 0.8 cm in the midportion of the of the axillary. It has heterogeneous echotexture. This is labeled as axilla lymph node #5. A similar appearing 6 mm x 5 mm x 4 mm lymph node is seen in the midportion of the axilla as well. This is labeled as lymph node #4. Benign appearing lymph nodes are also seen. The largest measures 1.3 cm x 1.5 cm x 0.7 cm. US/Breast Limited Unilateral IMPRESSION: There are 2 irregular suspicious lymph nodes labeled as #4 and #5. Biopsy recommended. ASSESSMENT CATEGORY: BIRADS Category 4: Suspicious - Biopsy Should Be Considered. A letter regarding these results will be sent to the patient by the facility within 30 days. Electronically Signed: Puma Le MD at 13:40 EDT ,
== END | disposition home or self-care (01) ==
LOC: OPUS 12:33
PROVIDERS: PCP Internal Medicine; Visit Provider Surgery
DX: N63.32 Unspecified lump in axillary tail of the left breast (principal)
CPT/HCPCS: 76642

== ENCOUNTER 2021-11-05 11:16 | Observation (INO) | payer MEDICARE, SELFPAY ==
--- NOTE | 2021-11-04 09:25 | RAD_ITS ---
INDICATION: PRE-OP EXAMINATION/TECHNIQUE: X-RAY - XR Chest 2 Views COMPARISON: Chest radiograph from 01/15/2021 FINDINGS: Support devices: None. No focal consolidations, effusions, or sizable pneumothorax. Cardiomediastinal silhouette is within normal limits. No acute findings in the bones or soft tissues. RAD/Chest PA and Lateral IMPRESSION: No radiographic evidence of acute cardiopulmonary disease. Electronically Signed: Juan Carlos Jonathan, at 12:41 EDT ,
[2021-11-05] VITALS (13 sets, daily range): BP systolic 117–170; BP diastolic 46–69; PULSE 51–77; RESP 14–18; TEMP 36.3–37.1; O2SAT 93–99; BMI 30.8
--- NOTE | 2021-11-05 | IMM_PTH ---
PATIENT: LIGIA DIAZ LOC: [facility] U#:[id number] AGE/SX: 86/F ROOM: [facility] RE11/05/[address]: Dr. Javier Jones MD : 1935 BED: 1 DIS: 11/06/2021 SPEC #: [id number] RECD: 11/08/21 11:28 STATUS: LEXIE KELLER #: [id number] WESLEY: 11/05/21 00:[address]: Javier Jones DEPT: IMMUNOHISTOCHEMISTRY RECD BY: Rodolfo Sinha ENTERED: 11/08/21 11:29 SP TYPE: IMMUNO OTHR DR: Dr. Quita Pena MD Tissues: Lymph node, NOS Procedures: CK7 (add) Pankeratin (initial) Pankeratin (add) Surgery Specimen Level IV PHYSICIAN & INSTITUTION [place] [address] SPECIMEN INFORMATION: Tissue Source: A - Left axillary sentinel lymph nodes Clinical Info: Breast cancer, enlarged lymph nodes in armpit Specimen Number: [id number] A3 & A4 CPT code: 89849, 11913 x3 METHODOLOGY: Deparaffinized sections of prefer/formalin-fixed tissue or PAP/DQ stained slides are incubated with monoclonal/polyclonal antibodies/oligonucleotide probes. Localization is made via biotin free immunoperoxidase method. Appropriate controls are performed and reacted as expected. Results on target cell population are indicated in the following table: RESULTS: ANTIBODY / CLONE RESULT Block A3 AE1-3 (AE1/AE3/PCK26) positive CK7 (OV-TL12/30) positive Block A4 AE1-3 (AE1/AE3/PCK26) negative CK7 (OV-TL12/30) negative These tests were developed and their performance characteristics determined by [facility]. They may not have been cleared or approved by the U.S. Food and Drug Administration. The FDA has determined that such clearance or approval is not necessary. The above immunohistochemical/dualISH markers are ordered and reviewed by the Pathologist. INTERPRETATION: A. Left axillary sentinel lymph nodes, biopsy: One out of three lymph nodes, positive for metastatic carcinoma. SJ:laci 11/11/2021
--- NOTE | 2021-11-05 | LYMN_PTH ---
PATIENT: LIGIA DIAZ LOC: [facility] U#:[id number] AGE/SX: 86/F ROOM: [facility] RE11/05/[address]: Dr. Javier Jones MD : 1935 BED: 1 DIS: 11/06/2021 SPEC #: [id number] RECD: 11/05/21 10:22 STATUS: LEXIE KELLER #: [id number] WESLEY: 11/05/21 00:[address]: Javier Jones DEPT: SURGICAL PATHOLOGY RECD BY: Rodolfo Sinha ENTERED: 11/05/21 11:41 SP TYPE: LYMPH NODE OTHR DR: Dr. Quita Pena MD Tissues: A - LYMPH NODE BIOPSY B - Left breast, NOS Procedures: Frozen Section (charge) Frozen Section Add'l ([facility]) Surgery Specimen Level V HEADER OPERATION: Ultrasound-guided wire localization partial mastectomy, left breast with SLN PRE-OP DIAGNOSIS: Breast cancer, enlarged lymph nodes in armpit TISSUE SUBMITTED: A. [place] lymph nodes, left chest, FS, B. Partial mastectomy, left breast FROZEN SECTION DIAGNOSIS A. Left axillary sentinel lymph nodes, biopsy: Three out of six lymph nodes positive for metastatic carcinoma. AM:nathalia 11/05/21 MICROSCOPIC DIAGNOSIS A. Left axillary sentinel lymph nodes, biopsy: Four out of six lymph nodes positive for metastatic carcinoma. See comment. B. Left breast, mastectomy: Invasive adenocarcinoma. See cancer summary in the comment section. SJ:laci 11/11/2021 COMMENT A. The largest focus of metastasis measures 1.4 cm in greatest dimension. Focal extranodal extension is noted measuring 1.0 cm in greatest dimension. Immunohistochemistry for cytokeratins ([id number]) is performed on block 3 & 4 and shows one out of three lymph nodes positive for metastatic carcinoma. B. INVASIVE BREAST CANCER SUMMARY: Procedure ? partial mastectomy Specimen ? left breast Tumor: Site ? upper outer quadrant Size ? 2.5 x 2 x 1.5 cm Histologic type - invasive ductal carcinoma (not otherwise specified). Histologic Grade (Princess grade): Glandular/tubular differentiation - score 3 Nuclear pleomorphism - score 3 Mitotic count ? score 2 Overall grade - 3 (score of 8) Focality - single focus of invasive carcinoma. Ductal carcinoma in situ - present Size (extent) of DCIS ? DCIS comprise about 5-10% of total tumor volume. Number of blocks with DCIS ? 3 Number of blocks examined ? 12 Architectural pattern - cribriform Nuclear grade ? grade 2 Necrosis ? present, central (expansive comedo necrosis) Lobular carcinoma in situ (LCIS) ? not identified Tumor extension: Skin ? invasive carcinoma directly involves into the nipple dermis without skin ulceration. Nipple ? DCIS does not involve the nipple epidermis. Skeletal muscle ? no skeletal muscle is present. Margins: Invasive carcinoma and ductal carcinoma in situ are 0.7 cm away from the closest superior margin. Regional lymph nodes: Number of sentinel lymph nodes examined - 6 Total number of lymph nodes examined - 6 Number of lymph nodes with macrometastases - 4 Size of largest metastatic deposit ? 1.4 cm Extranodal extension ? 1.0 cm Treatment effect: No known presurgical therapy. Lymphvascular invasion - present Dermal lymphvascular invasion ? not identified Distant metastasis ? not applicable Additional pathologic findings ? adenosis and florid intraductal hyperplasia with focal atypia. Ancillary studies - previously performed on section of tumor ([id number] / [id number]). ER ? positive (>95%, strong intensity) OK ? positive (>95%, strong intensity) Her2 ra ? negative (0) Microcalcifications ? present in DCIS and non-neoplastic tissue. Clinical history - Please make reference to previous specimen ([id number]) left breast tissue, core biopsy with diagnosis of ?invasive ductal carcinoma.? PATHOLOGIC STAGE: pT2 N2a pMx The above summary is in compliance with [employer] [place] [employer] (CAP) Cancer Protocols Checklist and [place] [employer] Committee on Cancer (AJCC), Staging Manual, 8th Ed. This case was reviewed and diagnosis discussed with Dr. Dooley on 12/10/2021. MICROSCOPIC DESCRIPTION Slides are reviewed. GROSS DESCRIPTION A - Received for frozen section is one container labeled with the patient's name and designated left axillary sentinel lymph nodes. The specimen consists of an irregular fragment of yellow fatty tissue measuring 7.5 x 4.5 x 1.5cms. Dissection reveals six lymph nodes ranging from 1.0 to 2.2 cm in greatest dimension. The lymph nodes are submitted for frozen section consultation in 4 cassettes as follows: 1??one lymph node, 2 - two lymph nodes, 3 - two lymph nodes and 4 - one lymph node. AM: 11/05/21 B. Received in fixative is one container labeled with the patient's name and designated left breast. The specimen consists of breast tissue with overlying skin ellipse. Breast measures 12 x 8 x 4.5 cm. Overlying skin ellipse measures 12 x 6.0 cm. Nipple measures 1.0 cm in greatest dimension. No skin lesion is identified. A crescent shape recent incision is noted in the upper outer quadrant measuring 3.0 cm in length. The specimen is inked as follows: posterior - black, superior - blue, inferior - green, medial - red and lateral - orange. Sections reveal a tapia indurated mass in the upper outer quadrant measuring 2.5 x 2.0 x 1.5 cm. This mass is 0.7 cm away from the closest superior margin and 2 cm away from next closest posterior margin. Section of rest of breast tissue reveal tapia, yellow adipose cut surfaces focal fibrous areas. Thickener Operator sections are submitted in 12 cassettes as follows: 1 - nipple, entirely submitted, 2 - perpendicular medial, lateral, and posterior margins, 3 - perpendicular superior, inferior margins and skin, 4-7 - tumor (cassette 4 also contains the superior margin), 8-12 - tour sales representative sections adjacent to and away from the tumor. Sections will be submitted after addition fixation / SJ:nathalia 11/06/21 TC:0 CPT: 72347 x2, 48696, 57670 x3
[2021-11-05] MEDS: Lactated Ringers 1,000 ML 15 ML IV (08:00)
--- NOTE | 2021-11-05 08:00 | NM_ITS ---
STUDY: NM Injection Procedure. PROCEDURE: [place] lymph node injection. DATE OF EXAM: 11/05/2021 CLINICAL INDICATION: Left breast cancer. COMPARISON: 10/19/2019. RADIOPHARMACEUTICAL: 1.1 mCi TECHNETIUM 99M sulfur colloid. FINDINGS: The procedure, risks, alternatives and complications were explained to the patient and informed consent was obtained. The patient was placed supine on the table. Physical examination of the left breast was performed after which the periareolar region was prepped and draped in the usual sterile manner. The TECHNETIUM radiopharmaceutical was then injected subcutaneously in the periareolar tissues at 4 locations and the needles were removed. The patient tolerated the procedure well with no immediate complications. NM/Lymph Node Injection Only IMPRESSION: Left breast sentinel lymph node injection. Electronically Signed: Michael Pedro MD at 8:34 EDT ,
--- NOTE | 2021-11-05 08:32 | PCM.HP.BLA ---
History and Physical Date of Admission: 11/05/21 Accompanied by: Daughter Is patient in pain?: No Allergies Penicillins [PCN] Allergy (Verified 10/22/21 15:41) Rashlisinopril Adverse Reaction (Intermediate, Verified 10/22/21 15:41) cough Medications sertraline 50 mg tablet 50 mg PO DAILY 08/26/16 [History Confirmed 10/22/21] vit C,E,zinc,copper-olwru3r 250 mg-lutein 5 mg-zeaxanthin 1 mg capsule (Ocuvite Adult 50 Plus) 1 cap PO DAILY 11/29/18 [History Confirmed 10/22/21] glucosamine 500 mg-msm 500 mg-Boswellia 33.3 mg-herb 182? 70 mg tablet (Cosamin [place] (with Boswellia)) 1 tab PO DAILY PRN JOINTS 11/21/20 [History Confirmed 10/22/21] magnesium hydroxide 400 mg (170 mg magnesium) chewable tablet 400 mg PO DAILY 11/21/20 [History Confirmed 10/22/21] ondansetron 4 mg disintegrating tablet 4 mg PO Q8H PRN nausea and vomiting #10 tabs 01/25/21 [Rx Confirmed 10/22/21] levothyroxine 75 mcg tablet 75 mcg PO DAILY THYROID #90 tabs 05/10/21 [Rx Confirmed 10/22/21] simvastatin 10 mg tablet 10 mg PO QHS #90 tabs 06/04/21 [Rx Confirmed 10/22/21] metoprolol succinate 25 mg tablet,extended release 24 hr 25 mg PO DAILY #90 tabs 06/25/21 [Rx Confirmed 10/22/21] apixaban 5 mg tablet (Eliquis) See Rx Instructions .Route .COMPLEX #60 tabs 09/19/21 [Rx Confirmed 10/22/21] gjudpecp-opr- 250 mg-dha 90 mg-epa 160 iu-khpt-pwtp-zeax capsule (Ocuvite Adult 50 Plus) 1 cap PO DAILY 10/02/21 [History Confirmed 10/22/21] losartan 50 mg-hydrochlorothiazide 12.5 mg tablet 0.5 tab PO DAILY #90 tabs 10/07/21 [Rx Confirmed 10/22/21] tramadol 50 mg tablet 50 mg PO BID PRN pain #30 tabs 10/16/21 [Rx Confirmed 10/22/21] PFSH Medical History? Atrial fibrillation with rapid ventricular response (07/02/18) COVID-19 virus infection (01/15/21) Depression Multiple premature ventricular complexes Osteoarthritis of left hip Right bundle branch block (RBBB) Shortness of breath Status post fall Surgical History? History of cardioversion (07/02/18) History of tonsillectomy History of total right hip arthroplasty History of tubal ligation Family History? Father?? ,? Age 70, ETOH abuse Hypertension ETOH abuse Social History? Smoking Status:? Never smoker alcohol intake:? never substance use type:? does not use HPI HPI HPI: LIGIA DIAZ, is a 86 F who presents to the office today for surgical follow-up of an ultrasound-guided needle core left breast 2:00 +1 cm partially retroareolar core biopsy that I performed for her on October 16, 2021.? The pathology shows invasive ductal carcinoma.? Also on October 18, 2021 she had a left axillary ultrasound.? Multiple lymph nodes were felt to been seen.? There is felt to be a suspicious lymph node measuring 1.3 x 1.3 x 0.8 cm in the midportion of the axilla.? Labeled #5.? There is also felt to be a 6 x 5 x 4 mm lymph node in the midportion of the axilla labeled for which is also felt to be suspicious per radiology. The patient is accompanied by her daughter today.? I have explained to her the findings of her needle core biopsy consistent with a 2.6 cm diameter invasive ductal carcinoma upper outer periareolar left breast.? I did repeat inspection there is ecchymosis from her biopsy site but the redness of the skin from 6:00 to 3:00 seems somewhat improved. Left breast tissue, core biopsy: ?Invasive ductal carcinoma, nuclear grade 2 (0.4 cm in greatest length). ?See comment. ? SJ:rg? 10/18/2021 ? 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 ? ER (clone [id number])? >95%, strong intensity CT (clone 16/1E2) ? >95%, strong intensity Her-2Neu (clone [id number])? 0 Left breast ultrasound October 18, 2021 STUDY: ? ULTRASOUND BREAST - LEFT REASON FOR EXAM: ? Female, 86 years old.? Left axillary lump. TECHNIQUE: ? Axial and longitudinal images of the LEFT breast were performed with a high resolution ultrasound transducer. # OF IMAGES:? 33 COMPARISON: ? None. FINDINGS: LEFT Breast: Multiple lymph nodes are seen.? There is a suspicious lymph node measuring 1.3 cm x 1.3 cm x 0.8 cm in the midportion of the of the axillary.? It has heterogeneous echotexture.? This is labeled as axilla lymph node #5.? A similar appearing 6 mm x 5 mm x 4 mm lymph node is seen in the midportion of the axilla as well.? This is labeled as lymph node #4.? Benign appearing lymph nodes are also seen.? The largest measures 1.3 cm x 1.5 cm x 0.7 cm. US/Breast Limited Unilateral IMPRESSION: There are 2 irregular suspicious lymph nodes labeled as #4 and #5.? Biopsy recommended. ? ASSESSMENT CATEGORY: BIRADS Category 4:? Suspicious - Biopsy Should Be Considered.? A letter regarding these results will be sent to the patient by the facility within 30 days. My previous notes reflect the following Visit Reasons:?L BREAST BIRADS 5 Chief Complaint: left breast biopsy Process Tech Required: No Is patient in pain?: No Allergies Penicillins [PCN] Allergy (Verified 10/16/21 14:07) Rashlisinopril Adverse Reaction (Intermediate, Verified 10/16/21 14:07) cough Medications sertraline 50 mg tablet 50 mg PO DAILY 08/26/16 [History Confirmed 10/16/21] vit C,E,zinc,copper-fzsqj5o 250 mg-lutein 5 mg-zeaxanthin 1 mg capsule (Ocuvite Adult 50 Plus) 1 cap PO DAILY 11/29/18 [History Confirmed 10/16/21] glucosamine 500 mg-msm 500 mg-Boswellia 33.3 mg-herb 182? 70 mg tablet (Cosamin [place] (with Boswellia)) 1 tab PO DAILY PRN JOINTS 11/21/20 [History Confirmed 10/16/21] magnesium hydroxide 400 mg (170 mg magnesium) chewable tablet 400 mg PO DAILY 11/21/20 [History Confirmed 10/16/21] ondansetron 4 mg disintegrating tablet 4 mg PO Q8H PRN nausea and vomiting #10 tabs 01/25/21 [Rx Confirmed 10/16/21] levothyroxine 75 mcg tablet 75 mcg PO DAILY THYROID #90 tabs 05/10/21 [Rx Confirmed 10/16/21] simvastatin 10 mg tablet 10 mg PO QHS #90 tabs 06/04/21 [Rx Confirmed 10/16/21] metoprolol succinate 25 mg tablet,extended release 24 hr 25 mg PO DAILY #90 tabs 06/25/21 [Rx Confirmed 10/16/21] tramadol 50 mg tablet 50 mg PO BID PRN pain #30 tabs 09/16/21 [Rx Confirmed 10/16/21] apixaban 5 mg tablet (Eliquis) See Rx Instructions .Route .COMPLEX #60 tabs 09/19/21 [Rx Confirmed 10/16/21] cnumjapw-ulj-ebsqw1 250 mg-dha 90 mg-epa 160 de-emgg-hmcr-zeax capsule (Ocuvite Adult 50 Plus) 1 cap PO DAILY 10/02/21 [History Confirmed 10/16/21] losartan 50 mg-hydrochlorothiazide 12.5 mg tablet 0.5 tab PO DAILY #90 tabs 10/07/21 [Rx Confirmed 10/16/21] Is last menstrual period known: No Post menopausal: Yes Patient : No PFSH Medical History? Atrial fibrillation with rapid ventricular response (07/02/18) COVID-19 virus infection (01/15/21) Depression Multiple premature ventricular complexes Osteoarthritis of left hip Right bundle branch block (RBBB) Shortness of breath Status post fall Surgical History? History of cardioversion (07/02/18) History of tonsillectomy History of total right hip arthroplasty History of tubal ligation Family History? Father?? ,? Age 70, ETOH abuse Hypertension ETOH abuse Social History? Smoking Status:? Never smoker alcohol intake:? never substance use type:? does not use HPI HPI HPI: LIGIA DIAZ, is a 86 F who presents to the office today for surgical consultation regarding an abnormal left mammogram and abnormal left breast ultrasound.? There is concern about a 2.6 x 1.6 x 1.7 cm irregular hypoechoic solid mass 2 o'clock position left breast 1 cm from the areola with increased vascularity and concerned about possible areolar skin thickening.? BI-RADS Category 5.? The patient is referred by Dr. Quita Pena written, my surgical consult recommendations will return to him. Medical comorbidities include atrial fibrillation with resolved rapid ventricular response for which she is on chronic anticoagulation with apixaban.? She has a history of right bundle branch block.? She did have COVID-08 January 2021.? She has had some recent ankle swelling. 86-year-old female.? G3, .? First child was born when she was 23.? Menarche at age 14.? No history of previous breast biopsies.? Family history notable for a daughter who at age 52 had invasive lobular carcinoma of the breast.? She was on estrogen replacement therapy for approximately 10 years The patient developed atrial fibrillation in 2018.? She was cardioverted and she has been on anticoagulation since that time. She denies myocardial infarction or CVA or diabetes.? She states that she occasionally notices an irregular beat but does not feel sustained palpitations. She believes that she has had a most recent colonoscopy approximately 5 years ago October 10, 2021 MAMMOGRAPHY - BILATERAL DIAGNOSTIC REASON FOR EXAM: ? Female, 86 years old.? Left periareolar skin thickening. PERTINENT HISTORY:? Daughter with breast cancer. TECHNIQUE: ? Digital bilateral breast tommy (3D mammographic acquisition) in the CC and MLO projections. 2-D mediolateral oblique (MLO) and craniocaudad (CC) views of both breasts were obtained.? CAD: Full Field Digital Mammography with Computer Added Detection was performed. COMPARISON:? Comparison is made with prior outside examination dated 05/20/2017. FINDINGS: Breast Composition:? There are scattered areas of fibroglandular density. Prominent density in the left retroareolar region.? There is evidence of a significant thickening in the left periareolar region.? Paget''s disease should be ruled out.? Correlation with ultrasound is recommended. No other significant abnormalities are identified. BI/DIAG MAMM W/CAD, BILAT IMPRESSION: Dominant left retroareolar soft tissue density with subtle overlying left periareolar skin thickening.? Paget''s disease should be ruled out. Targeted ultrasound is recommended. ? ? ASSESSMENT CATEGORY: BIRADS Category 0:? Incomplete.? Need additional imaging evaluation.? A letter regarding these results will be sent to the patient by the facility within 30 days. ? Approximately 10% of breast cancers are not detected by mammography.? A normal mammogram should not delay biopsy of a clinically suspicious abnormality. ? Electronically Signed: Puma Le MD at 14:23 EDT , October 10, 2021 STUDY: ? ULTRASOUND BREAST - LEFT REASON FOR EXAM: ? Female, 86 years old.? Abnormal screening mammogram. Left breast lump. TECHNIQUE: ? Axial and longitudinal images of the LEFT breast were performed with a high resolution ultrasound transducer. # OF IMAGES:? 28 COMPARISON: ? Comparison is made with prior mammogram done earlier today. FINDINGS: LEFT Breast: There is evidence of a 2.6 cm x 1.6 x 1.7 cm irregular hypoechoic solid mass at the 2 o''clock position of the left breast at 1 cm from the areola. Increased vascularity is seen.? Biopsy recommended. US/Breast Limited Unilateral IMPRESSION: 2.6 cm x 1.6 cm x 1.7 cm irregular hypoechoic solid mass at the 2 o''clock position of the left breast at 1 cm from the areola with increased vascularity.? Biopsy recommended. ? ASSESSMENT CATEGORY: BIRADS Category 5:? Highly Suggestive of Malignancy - Appropriate Action Should Be Taken.? A letter regarding these results will be sent to the patient by the facility within 30 days. ? Electronically Signed: Puma Le MD at 14:54 EDT , ROS General General: Yes fatigue; No weight change, appetite, colon cancer, breast cancer or weakness HEENT HEENT: Yes eye surgery; No difficulty swallowing, eye injury, swollen glands or hoarseness Endo Endocrine: No thyroid disease, diabetes mellitus, thyroid cancer, Hair loss, heat intolerance or cold intolerance Breast Breast: Yes left breast lump, abnormal mammogram and abnormal US; No right breast lump, nipple discharge, breast pain or breast enlargement Musc Musculoskeletal: Yes back problems and arthritis; No rheumatoid arthritis, gout or joint pain Cardio Cardiovascular: Yes atrial fibrillation and high blood pressure; No murmur, pacemaker, heart disease, heart attack, heart stent, palpitations, shortness of breat with exertion or chest pain Psych Psychiatric: Yes depression; No anxiety or hearing voices Resp Respiratory: No shortness of breath, No sleep apnea, No cough, No COPD, No asthma, No emphysema and No wheezing Gastro Gastrointestinal: No abdominal pain, No nausea or vomiting, No diarrhea, No constipation, No blood in stool, Yes acid reflux, No hemorrhoids, No ulcers, No gallbladder problem and No black,tarry stools Papo Hematologic: Yes blood thinners, No blood disorders, No bleeding, No anemia and No blood clots Neuro Neurologic: No weakness Exam Const General: cooperative, comfortable and no acute distress Nutritional Appearance: average body habitus [facility] Head: normal to inspection Eyes General: appearance normal, both eyes and all related structures Chest Chest palpation & inspection: normal inspection of the chest Other: Right breast: No focal mass.? No nipple discharge.? No axillary or clavicular adenopathy Left breast: Nipple retraction.? Diffuse mild erythema surrounding the areola 6:00 extending to the 3 o'clock position.? Palpable nondescript mass approximately 12 to 2 o'clock position.? Shotty left axillary adenopathy some matting but mobile. Resp Effort & Inspection: normal respiratory effort Auscultation: clear to auscultation bilaterally Cardio Rate: regular rate Rhythm: regular rhythm GI Palpation: soft and no hepatosplenomegaly Auscultation: normal bowel sounds Musc Cervical Spine: normal cervical lordosis Skin General: no rashes or lesions noted Neuro General: patient alert, patient awake and patient oriented x3 Extrem General: no calf tenderness Other: 1+ bilateral extremity nonpitting edema Psych Appearance: grossly normal Office Procedures Biopsy Provider Documentation Ultrasound-guided needle core biopsy left breast 2 o'clock position +1 cm irregular 2.6 cm mass Timeout informed consent was obtained.? 86-year-old female was taken to the procedure room placed upon the table.? Left breast was prepped with Betadine.? Under ultrasound guidance 1% lidocaine mixed 50-50 with 0.5% Marcaine was instilled as a local anesthetic.? Total 9 cc was used.? Small stab incisions created.? 14-gauge Monopty needle was advanced to prefire depth.? Pre and post fire films were obtained.? A single core was obtained.? Marking clip was left in position.? The specimen was immediately placed in formalin. I did inspect the left axilla.? Several lymph nodes identified but the longest length that I quickly identified was 0.9 cm.? Because the patient had not been completely off her Eliquis I elected not to pursue any left axillary sampling today. Javier Jones M.D., F.A.C.S. Biopsy Breast Biopsy: [id number] US Guidance Procedure Time Out Time Out Informed consent given: Yes Consent signed: Yes Time out checklist: patient, procedure, site marked/identified, positioning of patient, supplies available, allergies confirmed and team agrees on procedure Time out staff in room: Yes Time out verified: Yes Time out date: 10/16/21 Time out time: 14:08 Assessment and Plan Assessment and Plan (1) Breast cancer: ?Status:?Acute ?Plan: Findings are very suspicious for left retroareolar breast cancer.? Sizable irregular mass approximately 1 to 2 o'clock position periareolar left breast.? There is some mild erythema of the skin extending from 6:00 up to about 3 to 2 o'clock position.? There is no skin thickening or peau d'orange but the mild degree of erythema is of concern. I recommend a formal left axillary ultrasound testing be performed.? The patient will return to the office.? She is already familiar with Dr. Freya Dooley.? She is aware that we are suspicious that this is a left breast cancer.? 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 We will have her return to the office today and discuss treatment options. I appreciate the opportunity of assisting with the surgical care Copy: Dr. Quita Jones M.D., F.A.C.S ROS General General: Yes fatigue; No weight change, appetite, colon cancer, breast cancer or weakness HEENT HEENT: Yes eye surgery; No difficulty swallowing, eye injury, swollen glands or hoarseness Endo Endocrine: No thyroid disease, diabetes mellitus, thyroid cancer, Hair loss, heat intolerance or cold intolerance Breast Breast: Yes left breast lump, abnormal mammogram and abnormal US; No right breast lump, nipple discharge, breast pain or breast enlargement Musc Musculoskeletal: Yes back problems and arthritis; No rheumatoid arthritis, gout or joint pain Cardio Cardiovascular: Yes atrial fibrillation and high blood pressure; No murmur, pacemaker, heart disease, heart attack, heart stent, palpitations, shortness of breat with exertion or chest pain Psych Psychiatric: Yes depression; No anxiety or hearing voices Resp Respiratory: No shortness of breath, No sleep apnea, No cough, No COPD, No asthma, No emphysema and No wheezing Gastro Gastrointestinal: No abdominal pain, No nausea or vomiting, No diarrhea, No constipation, No blood in stool, Yes acid reflux, No hemorrhoids, No ulcers, No gallbladder problem and No black,tarry stools Papo Hematologic: Yes blood thinners, No blood disorders, No bleeding, No anemia and No blood clots Neuro Neurologic: No weakness Assessment and Plan Assessment and Plan (1) Breast cancer: ?Status:?Acute (2) Enlarged lymph nodes in armpit: ?Status:?Acute Plan The size and proximity of the invasive ductal carcinoma upper outer quadrant left breast to the areola with a slight change of skin coloration initially noted may be concern for possible subdermal involvement.? It is not completely clear to me that we could achieve clear surgical margins of the tumor with a lumpectomy.? At age 86 with some cardiac issues the patient may not be the best candidate for radiation treatment. I have reviewed the imaging of the left axillary ultrasound.? The 1.3 cm diameter node does have some interest.? The 0.6 cm diameter node seems less likely to be abnormal as it is well less than a centimeter in size.? I propose for her in the ultrasound department and ultrasound-guided needle core biopsy of the larger node.? This may affect treatment options for her. I also recommend to her medical oncology consultation.? She requests Dr. Freya Dooley.? We will arrange for that consult. The patient was able to see Dr. Freya Dooley. After discussion addition with Dr. Orville Frank it has been recommended due to the patient's age and comorbidities to proceed with a left breast lumpectomy. I may selectively utilize ultrasound-guided wire localized excision. And a left axillary sentinel lymph node biopsy. Additional left axillary lymph node dissection will not be pursued as it is predetermined that if the left axillary nodes are positive that left breast radiation and left axillary node radiation will be performed and if the nodes are negative and complete excision of the tumor is achieved and the patient will not require any radiation treatment. The patient and daughter have had an opportunity to ask and have questions answered. They are aware of the more minimal approach based upon patient's age and comorbidities. We will proceed as noted. Javier Jones M.D., F.A.C.S.
--- NOTE | 2021-11-05 08:35 | EX.PCM.DISCH ---
Discharge Instructions Procedure Breast Surgery Diet Discharge Diet: No restrictions Activity Discharge Activity: May Not Drive (for 2-3 days or while taking narcotic pain meds.) May shower in (days): 1 Lifting Restrictions: 10 pounds for 1 week. Dressing / Incision Call your doctor if your incision/area has: Continuous Slow Oozing and Sudden Increased Bleeding Call your doctor if you observe: Fever of 101 or Higher Suture Line Care: Avoid Pulling/Pushing and Avoid Pinching/Bending Remove Dressing in: 1 day Additional Dressing/Incision Instructions:: May leave any opsite dressing for 2-3 days. You may then continue to carefully shower over your Steri-Strips. You may leave the Steri-Strips in place for 1 week. You may use your left arm for routine gentle activity. No weight lifting greater than 5 pounds. You may gently start on range of motion wall creeping exercise in approximately 5 days Follow Up Care Please Follow Up With: Javier Jones MD When: Please call [phone] for follow-up office appointment in 1 week Test Results: You may resume your Eliquis on November 09, 2021 if you have no current bleeding problems at that time Discharge Plan Admission Primary Reason for Your Visit: Upper outer left breast cancer Attending Provider: Javier Jones Primary Care Provider: Quita Pena Discharge Orders/Prescriptions Prescriptions: Continued Cosamin [place] (with Boswellia) 500-500-33.3-70 mg tablet 1 tab PO DAILY PRN (Reason: JOINTS) magnesium hydroxide 400 mg (170 mg magnesium) tablet,chewable 400 mg PO DAILY Ocuvite Adult 50 Plus 250 mg (90 mg-160 mg) capsule 1 cap PO DAILY sertraline 50 MG tablet 50 mg PO DAILY Label Comments: MOOD ondansetron 4 mg tablet,disintegrating 4 mg PO Q8H PRN (Reason: nausea and vomiting) Qty: 10 0RF levothyroxine 75 mcg tablet 75 mcg PO DAILY Qty: 90 1RF simvastatin 10 mg tablet 10 mg PO QHS Qty: 90 1RF metoprolol succinate 25 mg tablet extended release 24 hr 25 mg PO DAILY Qty: 90 3RF Eliquis 5 mg tablet See Rx Instructions .ROUTE .COMPLEX Qty: 60 11RF Dose Instruction: TAKE 1 TABLET BY MOUTH TWICE A DAY Label Comments: LAST DOSE 11/02/21 Rx Instructions: TAKE 1 TABLET BY MOUTH TWICE A DAY losartan-hydrochlorothiazide 50-12.5 mg tablet 0.5 tab PO DAILY Qty: 90 3RF tramadol 50 mg tablet 50 mg PO BID PRN (Reason: pain) Qty: 30 0RF Referrals / Follow Up: Quita Pena MD [Primary Care Provider] - Disposition Disposition (needs filled in before D/C Order can be placed): Home, Self Care
[2021-11-05] MEDS: Isosulfan Blue 1% 5 ML Vial (09:38)
[2021-11-05] MEDS: Lidocaine 1% (20 ml mdv) 20 ML Vial (09:47)
[2021-11-05] MEDS: Bupivacaine 0.25% 30 ML Vial (09:47)
--- NOTE | 2021-11-05 11:06 | OP.PCM_ITS ---
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 86-year-old female was taken to the operating placed upon the table underwent general anesthesia. Clean procedure no antibiotics required. She had already gone nuclear tracer injection per radiology. The left arm was placed carefully in a soft roll at right angles to the table. The left breast was prepped with alcohol 2 cc of isosulfan blue dye was injected. Then the left breast was sterilely prepped and draped. A transverse incision was made in the left axilla blue dye tracking was rapidly id entified the deeper tissues were more indurated. Hemostasis was obtained with interrupted 3-0 Vicryl sutures and electrocautery and hemoclips. A conglomerate of lymph nodes was encountered this was dissected free circumferentially and excised using the electrocautery. I utilized the neoprobe and blue dye to help identify the nodes. I did a 10-second count then reinspected the axillary area for further evaluation. I inspected for further nodes and suspected for further nodes by palpation. I did not detect any residual gross disease. [place] nodes were sent. Final result suggested 3 out of 6 sentinel nodes positive. I made a curvilinear incision in the upper outer quadrant of the left breast circumareolar early sharp dissection carried down through the subcutaneous tissue and the mass was directly beneath me but then it became infinitely apparent that the mass was adherent to the retroareolar tissue. I then converted to a partial mastectomy and I did a transverse elliptical incision to include the nipple areolar complex of as well as the palpable mass. Electrocautery dissection was used dissect down into the breast tissue and hemostasis obtained electrocautery and 3-0 Vicryl ligatures. The mass was by palpation completely excised and included in this transverse ellipse of breast tissue nipple and areola. A silk suture was placed in the lateral aspect of this transverse ellipse. By visualization and palpation there was no evidence of residual gross tumor. The wound was closed with a deep layer of interrupted 3-0 Vicryl and then sequential layers of interrupted 3-0 Vicryl. Skin skin closure accomplished. Each wound was anesthetized with 1% lidocaine 30 cc mixed with 20 cc of 0.25% Marcaine. The axilla was anesthetized as well. Further inspection of the a xilla revealed that the dissection had been moderately extensive of fibrofatty tissue. I placed Floseal in the Dany axilla to assure hemostasis. The subdermal tissues approximated with interrupted 3-0 Vicryl as well as the deeper subcutaneous tissues. Both incisions completely closed. Steri-Strips Telfa OpSite bulky dry dressings applied. Sponge and instrument and needle counts were reported to the surgeon to be correct. Specimen left axillary sentinel lymph nodes. Left partial mastectomy. Drains none. Blood loss minimal. Synoptic Portion: Element Response Options Operation performed with curative intent. Yes Tracer(s) used to identify sentinel nodes in the upfront surgery (non- neoadjuvant) setting (select all that apply). Dye and radioactive tracer Tracer(s) used to identify sentinel nodes in the neoadjuvant setting (select all that apply). Not applicable All nodes (colored or non-colored) present at the end of a dye-filled lymphatic channel were removed. Yes All significantly radioactive nodes were removed. Yes All palpably suspicious nodes were removed. Yes Biopsy-proven positive nodes marked with clips prior to chemotherapy were identified and removed. Not applicable Surgeon: Javier Jones Type of Anesthesia: General and Local Anesthesiologist: Anais Walton
[2021-11-05] MEDS: traMADol 50 MG Tablet PO ×2 (13:13→19:31)
--- NOTE | 2021-11-05 14:25 | PCM.PN.SRG ---
Subjective Subjective Patient is demonstrating some discomfort both the left axilla and the left breast. Unsure as to how comfortable she would be at home even with family care. Objective Data Objective Data Vital Signs: Vital Signs Temp Pulse Resp BP Pulse Ox O2 Del Method 97.4 F L 77 16 159/60 H 95 Room Air 11/05/21 12:26 11/05/21 13:55 11/05/21 13:55 11/05/21 13:55 11/05/21 13:55 11/05/21 13:55 Oxygen Delivery Method Room Air Weight: 163 lb 2.273 oz Body Mass Index (BMI) 30.8 Radiography Diagnostic Testing: Radiology Impression [place] Node 11/05/21 08:00 IMPRESSION: Left breast sentinel lymph node injection. Electronically Signed: Michael Pedro MD at 8:34 EDT , Assessment & Plan Assessment/Plan (1) Breast cancer: PLAN: 86-year-old female status post partial left mastectomy and left axillary sentinel lymph node biopsy. For pain control I am recommending overnight observation and stay. The amount of resection was more than typical for a simple lumpectomy. She is aware of the recommendations and concurs. Javier Jones M.D., F.A.C.S.
[2021-11-05] MEDS: Acetaminophen 325 MG Tablet 650 MG PO (17:39)
[2021-11-05] MEDS: Atorvastatin Calcium 10 MG Tablet 5 MG PO (21:23)
[2021-11-06 02:00] VITALS: BP 153/56; PULSE 52; RESP 18; TEMP 36.4; O2SAT 96
[2021-11-06] MEDS: traMADol 50 MG Tablet PO ×2 (02:47→11:15)
[2021-11-06] MEDS: Levothyroxine 75 MCG Tablet PO (06:17)
--- NOTE | 2021-11-06 06:20 | PCM.PN.SRG ---
Subjective Subjective Patient is feeling better. She is glad she stayed overnight. She complains of soreness of the left axilla. She feels that she is otherwise making good progress. Objective Data Objective Data Vital Signs: Vital Signs Temp Pulse Resp BP Pulse Ox O2 Del Method 97.5 F L 52 L 18 153/56 H 96 Room Air 11/06/21 02:00 11/06/21 02:00 11/06/21 02:00 11/06/21 02:00 11/06/21 02:00 11/06/21 02:00 Oxygen Delivery Method Room Air Weight: 163 lb 2.273 oz Body Mass Index (BMI) 30.8 Intake & Output: Intake and Output for Last 24 Hours 11/04/21 11/05/21 11/06/21 23:59 23:59 23:59 Intake Total 1240 / 1660 420 / 420 Balance 1240 / 1660 420 / 420 Radiography Diagnostic Testing: Radiology Impression [place] Node 11/05/21 08:00 IMPRESSION: Left breast sentinel lymph node injection. Electronically Signed: Michael Pedro MD at 8:34 EDT , Physical Exam Narrative The left breast axillary compression dressing was carefully removed. Tape was quite adherent. Revealed an OpSite dressing for the axilla but the breast was only covered with Telfa. Const Constitutional Narrative: The left breast incision and left axillary incision both appear to be clean and dry with minimal to no drainage. I am not detecting any left axillary fullness. Assessment & Plan Assessment/Plan (1) Breast cancer: PLAN: We will apply an appropriate Telfa and OpSite dressing to the left breast partial mastectomy incision. This will then allow the patient to be discharged today with permission to take showers. She has had an opportunity to ask and have questions answered. I anticipate office follow-up at 1 week. Progress at this point is felt to be good.
--- NOTE | 2021-11-06 08:19 | WOUNDNOTE ---
Removed the old telfa dressing from the left breast. minimal old dry drainage noted on the old dressing. steri strips intact. applied a new telfa dressing with opsite. pt tolerated well and very appreciative of care. will send another dressing home with patient if needed. the opsite dressing to the left axilla remains intact.
[2021-11-06 08:36] VITALS: BP 154/51; PULSE 58; RESP 18; TEMP 36.9; O2SAT 97
[2021-11-06] MEDS: Losartan Potassium 25 MG Tablet PO (09:03)
[2021-11-06] MEDS: Magnesium Chloride 64 MG Delay Rel.Tablet 128 MG PO (09:04)
[2021-11-06] MEDS: hydroCHLOROthiazide 6.25mg TAB 6.25 MG PO (09:04)
[2021-11-06] MEDS: Sertraline 50 MG Tablet PO (09:04)
--- NOTE | 2021-11-06 10:01 | PHA.DC.MR ---
Pharmacy Service has performed discharge medication reconciliation for this patient. The patient's discharge medication list was reviewed for discrepancies and discrepancies were resolved. Home Medications sertraline 50 mg tablet 50 mg PO DAILY 08/26/16 glucosamine 500 mg-msm 500 mg-Boswellia 33.3 mg-herb 182 70 mg tablet (Cosamin [place] (with Boswellia)) 1 tab PO DAILY PRN JOINTS 11/21/20 magnesium hydroxide 400 mg (170 mg magnesium) chewable tablet 400 mg PO DAILY 11/21/20 ondansetron 4 mg disintegrating tablet 4 mg PO Q8H PRN nausea and vomiting #10 tabs 01/25/21 levothyroxine 75 mcg tablet 75 mcg PO DAILY THYROID #90 tabs 05/10/21 simvastatin 10 mg tablet 10 mg PO QHS #90 tabs 06/04/21 metoprolol succinate 25 mg tablet,extended release 24 hr 25 mg PO DAILY #90 tabs 06/25/21 apixaban 5 mg tablet (Eliquis) See Rx Instructions .Route .COMPLEX #60 tabs 09/19/21 mtxvenpp-[id number] 250 mg-dha 90 mg-epa 160 bb-cypk-xoqt-zeax capsule (Ocuvite Adult 50 Plus) 1 cap PO DAILY 10/02/21 losartan 50 mg-hydrochlorothiazide 12.5 mg tablet 0.5 tab PO DAILY #90 tabs 10/07/21 tramadol 50 mg tablet 50 mg PO BID PRN pain #30 tabs 10/16/21
--- NOTE | 2021-11-06 10:04 | CASEMGMT ---
CHARMAINE CM in to pt room, pt sitting up in bed reading a book. Pt states she feels ready for dc. States her dtr is taking her to [facility] today so she can have respite. She states family is able to help her. She reports she is aware of resources such as C if she should get home and feel the need for services. Denies needs now.
[2021-11-06 11:30] VITALS: BP 121/50; PULSE 70; RESP 18; TEMP 36.6; O2SAT 97
--- NOTE | 2021-11-06 11:46 | CHAPLAIN ---
Type of Pastoral Visit _x_ Initial Visit ___ Follow-up Visit ___ On-call Visit ___ General Patient Visit ___ Spiritual Assessment ___ Family Conference ___ Bereavement ___ Rapid Response ___ Code Blue ___ Other (describe below) Pastoral Care Referral From _x__ Patient ___ Family ___ Nurse ___ Physician ___ Professor Of Business ___ Rooming House Keeper ___ Other (describe below) Sacrament/Intervention _x__ Active listening ___ Anointing ___ Cheondoism ___ Bereavement ___ Communion ___ Tanya exploration ___ ___ Life review _x__ Prayer ___ Reconciliation ___ Sacrament of Sick ___ Supportive presence ___ Wedding ___ Other (describe below) Pastoral Comments 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
== END 2021-11-06 12:13 | disposition home or self-care (01) ==
LOC: SDC 11-06 10:33 → MS3 11-06 10:33
PROVIDERS: Admitting Provider Surgery; PCP Internal Medicine; Referring Provider Surgery; Visit Provider Surgery
PROC: (CPT 19301; principal; 2021-11-05 09:20)
DX: C50.412 Malignant neoplasm of upper-outer quadrant of left female breast (principal); C77.3 Secondary and unspecified malignant neoplasm of axilla and upper limb lymph nodes; I48.91 Unspecified atrial fibrillation; L53.9 Erythematous condition, unspecified; Z79.01 Long term (current) use of anticoagulants; N64.4 Mastodynia; I25.10 Atherosclerotic heart disease of native coronary artery without angina pectoris; Z80.3 Family history of malignant neoplasm of breast; Z79.899 Other long term (current) drug therapy; F32.A Depression, unspecified; I10 Essential (primary) hypertension; E78.00 Pure hypercholesterolemia, unspecified; I49.3 Ventricular premature depolarization; M19.90 Unspecified osteoarthritis, unspecified site; K21.9 Gastro-esophageal reflux disease without esophagitis; E07.9 Disorder of thyroid, unspecified; Z79.890 Hormone replacement therapy; I45.10 Unspecified right bundle-branch block
CPT/HCPCS: 19302; 00400; 38792; 71046; 88305; 88307; 88331; 88332; 88341; 88342; 93005; 99218; 99251; A9541; J7120; G0378; G0463; J2405; Q9968

== ENCOUNTER → 2021-12-12 | Outpatient (CLI) | payer MEDICARE, SELFPAY ==
--- NOTE | 2021-12-12 13:55 | CT_ITS ---
INDICATION: stage IIIA breast cancer, back pain, r/o mets EXAMINATION: CT CHEST, ABDOMEN AND PELVIS WITH CONTRAST - CT Chest Abdomen And Pelvis W/ Contrast Injection TECHNIQUE: Helically acquired images were obtained of the chest, abdomen, and pelvis following IV contrast. CTA protocol with 3D reformats were performed. A radiation dose optimization technique was used for this scan. IV Contrast dosage and agent: Oral contrast: None. COMPARISON: None. FINDINGS: ----Chest: LUNGS, PLEURA AND LARGE AIRWAYS: No masses, consolidation, or edema. No pleural effusion or thickening. No pneumothorax. THYROID: No thyroid lesions. HEART AND PERICARDIUM: Heart size is normal. No pericardial effusion. VESSELS: Thoracic aorta is not dilated. No aortic dissection. No obvious central pulmonary embolism although this study was not performed with the pulmonary embolism protocol. MEDIASTINUM AND VIRA: Subtle hilar mediastinal densities visualized. Esophagus is unremarkable. No hiatal hernia. BONES: No suspicious lytic or blastic abnormality. Degenerative bone changes seen. Heterogeneous density is visualized in bilateral breast tissues thickening of the subcutaneous soft tissues of the left breast seen. 1.5 x 1.2 cm soft tissue density/masses visualized in the right breast lower outer quadrant The irregular soft tissue density visualized in the left axillary region with adjacent surgical clips, this measures 2.5 x 3.3 x 3.0 cm best visualized on axial series 2 image 27 and coronal series 601 image 111. ----Abdomen/Pelvis: LIVER: Homogeneous. No focal mass. GALLBLADDER AND BILIARY TREE: No calcified gallstones. Mild prominence and enhancement of the gallbladder wall is visualized. No evidence of significant gallbladder wall thickening, no evidence of pericholecystic stranding is seen. No intra- or extrahepatic biliary ductal dilation. PANCREAS: No focal cystic or solid mass. SPLEEN: Normal size without focal cystic or solid mass. ADRENAL GLANDS: No nodules. KIDNEYS AND URETERS: Normal renal size and position. No hydronephrosis. PERITONEUM: No ascites or free air. No other fluid [id number]. BOWEL: 1.4 cm circumscribed density visualized in the distal stomach. Mild prominence of the stomach but no evidence of stomach or thickening is visualized. Mild distention of the proximal duodenum is seen, the distal small bowel loops are unremarkable. Abundance of stool is visualized in the large bowel. . LYMPH NODES: No enlarged mesenteric or retroperitoneal lymph nodes. VESSELS: Aorta demonstrates scattered atherosclerotic calcifications most prominent in the bifurcation but no evidence of aneurysmal dilatation is seen. Tortuosity of the abdominal aorta is seen. Compression of the inferior vena cava is visualized at the level of the L4 vertebral body, compression) most probably by the proximal small bowel dilation this is best visualized on coronal series 604 image 62 URINARY BLADDER: Not optimally evaluated. REPRODUCTIVE ORGANS: Limited evaluation of the pelvis due to extensive artifact from bilateral hip prosthesis. ABDOMINAL WALL: No discrete abdominal or pelvic wall hernia. BONES: No lytic or blastic abnormality. Extensive degenerative bone changes are seen. Bilateral hip prosthesis causing streak artifact limiting evaluation of the pelvis. CT/CT Chest, Abd, Pel w/Contrast IMPRESSION: Bilateral breast soft tissue changes. Thickening of the subcutaneous soft tissues of the left breast. 3.3 cm left axillary mass. 1.5 cm right breast soft tissue density/mass. Subtle hilar and mediastinal lymph nodes suggested. No evidence of parenchymal lung masses. No evidence of abdominal masses. Proximal small bowel dilation compressing on the inferior vena cava. Tortuosity of the abdominal aorta. Degenerative bone changes, no evidence of lytic or sclerotic bone lesions is seen. Electronically Signed: Michael Pedro MD at 7:33 EDT ,
[2021-12-12 14:05] LABS: CREATININE FINGERSTICK < 0.9 mg/dL (0.55-1.02); EGFR FINGERSTICK > 60.0000 mL/min (>60)
== END | disposition home or self-care (01) ==
LOC: CT 13:32
PROVIDERS: PCP Internal Medicine; Visit Provider Student in an Organized Health Care Education/Training Program
DX: C50.919 Malignant neoplasm of unspecified site of unspecified female breast (principal)
CPT/HCPCS: 71260; 74177; Q9967; A4216

== ENCOUNTER → 2021-12-17 | Outpatient (CLI) | payer MEDICARE, SELFPAY ==
--- NOTE | 2021-12-17 09:34 | NM_ITS ---
CLINICAL: 86-year-old female with history of carcinoma of the breast. WHOLE BODY 99m Tc MDP RADIONUCLIDE BONE SCINTIGRAPHY COMPARISON: None available FINDINGS: Following the intravenous administration of 26.0 mCi of 99m Tc MDP, whole body bone images reveal: 1. There is scintigraphic evidence of abnormal increased tracer concentration noted in the lower cervical spine posteriorly on the left and right, the seventh and 10th thoracic vertebra posteriorly on the left, the first and fifth lumbar vertebra anteriorly and posteriorly, the acromioclavicular and glenohumeral compartments of both shoulders, the sternoclavicular compartment of the left shoulder, the bilateral wrists and hands, both elbow articulations, knees bilaterally and left midfoot. 2. Presumably asymptomatic bilateral hip arthroplasties are defined with increased uptake noted in the trochanteric and distal femoral components most consistent with postsurgical change. 3. The remaining skeletal structures are scintigraphically unremarkable with normal-appearing renal images and urinary bladder activity identified. A thoracic lumbar scoliosis is defined. NM/Bone Scan Whole Body IMPRESSION: 1. The increase in tracer concentration identified in the appendicular and axial skeleton is most consistent with degenerative arthrosis. 2. There is no definitive scintigraphic evidence of osteoblastic metastasis on the current examination. Electronically Signed: Pratik Young, at 22:42 EDT ,
== END | disposition home or self-care (01) ==
LOC: NM 09:33
PROVIDERS: PCP Internal Medicine; Referring Provider Student in an Organized Health Care Education/Training Program; Visit Provider Student in an Organized Health Care Education/Training Program
DX: C50.919 Malignant neoplasm of unspecified site of unspecified female breast (principal)
CPT/HCPCS: 78306; A9503

== ENCOUNTER → 2022-02-05 | Outpatient (CLI) | payer MEDICARE, SELFPAY ==
--- NOTE | 2022-02-05 11:20 | US_ITS ---
STUDY: ULTRASOUND BREAST - RIGHT REASON FOR EXAM: Female, 86 years old. Right breast abnormality is seen on a recent CT scan. TECHNIQUE: Axial and longitudinal images of the RIGHT breast were performed with a high resolution ultrasound transducer. # OF IMAGES: 67 COMPARISON: None. FINDINGS: RIGHT Breast: There is a 9 mm x12 mm x 5 mm cyst with septation at the 6 o''clock position of the breast at 3 cm from the nipple. There is also evidence of a 4 mm x 4 mm x 3 mm cyst at the 7 o''clock position of the breast at 3 cm from the nipple. US/Breast Limited Unilateral IMPRESSION: 9 mm x 12 mm x 5 mm cyst with septation at the 6 o''clock position of the breast at 3 cm from the nipple. 4 mm x 4 mm x 3 mm cyst at the 7 o''clock position of the breast at 3 cm from the nipple. ASSESSMENT CATEGORY: BIRADS Category 2: Benign. A letter regarding these results will be sent to the patient by the facility within 30 days. Electronically Signed: Puma Le MD at 12:36 EST ,
== END | disposition home or self-care (01) ==
LOC: OPUS 11:18
PROVIDERS: PCP Internal Medicine; Referring Provider Surgery; Visit Provider Surgery
DX: C50.912 Malignant neoplasm of unspecified site of left female breast (principal); R93.89 Abnormal findings on diagnostic imaging of other specified body structures
CPT/HCPCS: 76642

== ENCOUNTER → 2023-03-04 | Outpatient (CLI) | payer MEDICARE, SELFPAY ==
--- NOTE | 2023-03-04 15:58 | MRI_ITS ---
STUDY: MRI CERVICAL SPINE WITHOUT CONTRAST REASON FOR EXAM: Female, 87 years old. METS BREAST CA R/O IMPENDING SC COMPRESSION TECHNIQUE: Standardized fat and water weighted pulse sequences were obtained in the sagittal and axial planes. COMPARISON: None FINDINGS: Normal foramen magnum and brainstem-cervical cord junction. Normal craniovertebral junction. Normal anterior atlantoaxial articulation. Normal odontoid process. There is straightening of the normal cervical lordosis. Grade 1 anterolisthesis at C3-4 and C7-T1. Normal vertebral bodies and posterior osseous elements. C2-3: Normal endplates. Normal disc height, signal and morphology. Normal central canal and intervertebral neural foramina. C3-4: Disc bulge and spurring. Facet spurring. Moderate canal stenosis. Left greater than right foraminal narrowing. C4-5: Disc space narrowing. Mild spurring. Facet spurring. No canal stenosis. Mild left greater than right foraminal narrowing. C5-6: Disc space narrowing. Disc bulge and spurring. Facet spurring. Moderate canal stenosis. Right greater than left foraminal narrowing. C6-7: Disc bulge and mild spurring. Facet spurring. No canal stenosis. Left foraminal narrowing. C7-T1: Normal endplates. Normal disc height, signal and morphology. There is facet spurring. Normal central canal and intervertebral neural foramina. Normal cervical cord. Normal visualized soft tissue structures. MRI/Spine Cervical (Routine) IMPRESSION: Multilevel degenerative changes, as described above. Electronically Signed: Dale Nair MD at 19:15 [facility] ,
--- NOTE | 2023-03-04 15:58 | MRI_ITS ---
STUDY: MRI LUMBAR SPINE WITHOUT CONTRAST REASON FOR EXAM: Female, 87 years old. METS BREAST CA R/O IMPENDING SC COMPRESSION -- NO CONTRAST TECHNIQUE: Standardized fat and water weighted pulse sequences were obtained in the sagittal and axial planes. COMPARISON: None FINDINGS: T12-L1: Normal endplates. Normal disc height, desiccation and normal morphology. Normal bilateral facet joints. Normal central canal and bilateral lateral recesses. Normal bilateral intervertebral neural foramina. Normal lumbar lordosis. There is dextro scoliosis. Normal conus medullaris that terminates at T12-L1 L1-2: Narrowed disc space with endplate spurring. Desiccation of disc and small right foraminal disc protrusion. Normal bilateral facet joints. Normal central canal and bilateral lateral recesses. Mild to moderate right neural foraminal stenosis L2-3: Narrowed disc space and minimal bulging disc osteophyte complex. Facet arthropathy and thickening of ligamenta flava... Normal central canal and bilateral lateral recesses. Minor bilateral neural foraminal encroachment. L3-4: Anterior endplate spurring.. Narrowed disc space with desiccation of the disc and minimal bulging disc osteophyte complex. Mild facet arthropathy and thickening of ligamenta flava Normal central canal and bilateral lateral recesses. Mild to moderate bilateral neural foraminal encroachment. L4-5: Narrowed disc space with desiccation of the disc and minimal annular bulge.. Facet arthropathy and thickening of ligamenta flava more pronounced on the left. Mild narrowing of the central canal and right nerve root foramen Mild left lateral recess stenosis and moderate neural foraminal stenosis L5-S1: Normal endplates. Normal disc height, desiccation and minimal annular bulge.. Mild facet arthropathy and thickening of ligamenta flava. Normal central canal and bilateral lateral recesses. Normal bilateral intervertebral neural foramina. Normal visualized sacral ala. Normal visualized paraspinous soft tissue structures. MRI/Spine Lumbar (Routine) IMPRESSION: No evidence for acute fracture or other significant bony pathology.. Scoliosis and degenerative changes with multilevel spinal stenosis secondary to disc disease and bony hypertrophy Findings as above Electronically Signed: Lennox Lock MD at 18:46 EST Reading Location ID and State: [address] [place] [address] Tel , Service support ,
--- NOTE | 2023-03-04 15:58 | MRI_ITS ---
STUDY: MRI THORACIC SPINE WITHOUT CONTRAST REASON FOR EXAM: Female, 87 years old. METS BREAST CA R/O IMPENDING SC COMPRESSION -- TECHNIQUE: Standardized fat and water weighted pulse sequences were obtained in the sagittal and axial planes. COMPARISON: Head CT January 20, 2023 FINDINGS: There is an increased kyphosis of the thoracic spine. There is a levoscoliosis of the thoracolumbar spine. The generalized signal intensity of the osseous structures is intact. There is no acute fracture. There is mild increased T2 signal of the right transverse process of T3 consistent with metastasis as seen on recent PET/CT scan, series 6 image 15. There are scattered diminished signal sclerotic regions of multiple thoracic vertebra with potential treated metastatic disease. There are increased T1 and T2 signal hemangiomas of multiple thoracic vertebra. T1-2, T2-3, T3-4, T4-5, T5-6, T6-7, T7-8, T8-9, T9-10, T10-11, T11-12: There is moderate multilevel degenerative change with disc space narrowing and spurring. There are mild endplate irregularities and small Schmorl''s nodes in the mid thoracic spine. There is no high-grade canal stenosis.There are perineural cysts at multiple levels. Normal visualized thoracic cord. Normal conus medullaris that terminates at the L1 level. The soft tissue structures are unremarkable. MRI/Spine Thoracic (Routine) IMPRESSION: Multilevel degenerative change. No acute fracture. No canal stenosis. Abnormal signal of the right T3 transverse process consistent with metastatic disease, as seen on PET/CT scan. Regions of diminished signal sclerosis suggesting treated metastatic disease. Electronically Signed: Dale Nair MD at 19:28 EST ,
== END | disposition home or self-care (01) ==
LOC: MRI 15:39
PROVIDERS: PCP Internal Medicine; Referring Provider Internal Medicine Hematology & Oncology; Visit Provider Internal Medicine Hematology & Oncology
DX: C50.912 Malignant neoplasm of unspecified site of left female breast (principal)
CPT/HCPCS: 72141; 72146; 72148

== ENCOUNTER → 2023-09-15 | Outpatient (CLI) | payer MEDICARE, SELFPAY ==
--- NOTE | 2023-09-15 10:31 | MRI_ITS ---
HISTORY: RECENT PET BONE METS T3, T9, L3. TECHNIQUE: Multiplanar and multisequence MR images of the lumbar spine were obtained before and after the intravenous administration of 14 cc Clariscan. 271 images. COMPARISON: PET-CT 08/25/2023, MRI 03/04/2023. FINDINGS: VERTEBRAE: Vertebral body heights maintained. Multiple small round hypointense bone marrow lesions in the T12, L2, L3, L4, and L5 vertebrae again seen corresponding to the sclerotic lesions on PET/CT with mild enhancement particularly at the T12 and L3 lesions. Increased size of the left L3 pedicle lesion compared to prior MRI. No cortical breakthrough or extraosseous soft tissue mass. ALIGNMENT: No anterior or posterior subluxation. Mild-moderate S-shaped scoliosis. SPINAL CANAL: Normal morphology and position of the conus medullaris at L1. No epidural collection or enhancing intradural extramedullary mass. INTERVERTEBRAL DISCS: Posterior disc bulge osteophyte complexes with degenerative endplate changes and facet arthropathy at multiple levels. T12-L1: Minimal narrowing of thecal sac and mild right foraminal narrowing, similar to prior. L1-2: Minimal narrowing of the thecal sac and moderate right foraminal narrowing, similar to prior. L2-3: Minimal narrowing of the thecal sac with moderate right and mild left foraminal narrowing, similar to prior. L3-4: Minimal narrowing of thecal sac with mild right and moderate left foraminal narrowing, similar prior. L4-5: Minimal narrowing of the thecal sac with mild right and moderate-severe left foraminal narrowing with probable left L4 nerve root impingement, similar to prior. L5-S1: Minimal narrowing of the thecal sac and bilateral foramina SOFT TISSUES: Mild posterior subcutaneous edema. MRI/Spine Lumbar W/WO Contrast IMPRESSION: Osteoblastic metastases of the lumbar spine, with increased size of the L3 lesion compared to prior MRI. Multilevel degenerative disc disease superimposed on scoliosis as above. Electronically Signed: Ary Day MD at 10:37 EDT ,
--- NOTE | 2023-09-15 10:31 | MRI_ITS ---
HISTORY: RECENT PET BONE METS T3, T9, L3. TECHNIQUE: Multiplanar and multisequence MR images of the thoracic spine were obtained before and after the intravenous administration of 14 mL Clariscan. 207 images. COMPARISON: PET-CT 08/25/2023, MR 03/04/2023. FINDINGS: VERTEBRAE: Vertebral body heights maintained. Multiple round hypointense bone marrow lesions throughout the thoracic spine again seen with increased size and mild enhancement right T3 transverse process and T9 vertebral body lesions. No cortical breakthrough or enhancing extraosseous soft tissue mass. Mild degenerative endplate changes with Schmorl''s nodes at multiple levels. Hemangioma incidentally noted in T7. ALIGNMENT: No significant anterior or posterior subluxation. Mild scoliosis. SPINE CANAL: Thoracic cord within normal limits in signal and morphology. No epidural collection or enhancing intradural extramedullary mass. INTERVERTEBRAL DISCS: Mild disc bulges with facet arthropathy at multiple levels. No critical central canal stenosis or foraminal narrowing. Perineural cysts again seen. SOFT TISSUES: No paraspinal fluid collection. MRI/Spine Thoracic W/WO Contrast IMPRESSION: Osteoblastic metastases of the thoracic spine with mildly increased size of the T3 and T9 lesions compared to prior MRI. Mild multilevel degenerative change without significant spinal canal stenosis. Electronically Signed: Ary Day MD at 11:41 EDT ,
== END | disposition home or self-care (01) ==
PROVIDERS: PCP Internal Medicine; Referring Provider Internal Medicine Hematology & Oncology; Visit Provider Internal Medicine Hematology & Oncology
DX: C50.412 Malignant neoplasm of upper-outer quadrant of left female breast (principal); C79.51 Secondary malignant neoplasm of bone; C77.9 Secondary and unspecified malignant neoplasm of lymph node, unspecified; C50.912 Malignant neoplasm of unspecified site of left female breast
CPT/HCPCS: 72157; 72158; A9575

== ENCOUNTER → 2023-10-16 | Outpatient (CLI) | payer MEDICARE, SELFPAY ==
--- NOTE | 2023-10-16 15:44 | MRI_ITS ---
HISTORY: bone metastases on PET, evaluate for extent of disease. TECHNIQUE: Multiplanar and multisequence MR images of the cervical spine were obtained before and after the intravenous administration of 14 cc Clariscan. 303 images. COMPARISON: PET-CT 08/25/2023, MR 03/04/2023. FINDINGS: VERTEBRAE: Vertebral body heights maintained. Mild degenerative endplate changes. Stable small sclerotic lesion in the anterior aspect of the C7 vertebral body. No new sclerotic lesion identified in the cervical spine. Small small sclerotic lesions of the T3, T4, and T5 vertebral bodies. Increased size of the right T3 posterior element osteoblastic lesion compared to prior MRI. VERTEBRAL ALIGNMENT: No anterior or posterior subluxation. SPINAL CANAL: Cervical cord signal and morphology within normal limits. No gross epidural collection or enhancing intradural extramedullary mass. SOFT TISSUES: No prevertebral fluid collection. INTERVERTEBRAL DISCS: C2-3: No significant posterior disc protrusion, central canal stenosis, or foraminal narrowing. C3-4: Moderate posterior disc protrusion protrusion eccentric to the left with uncovertebral and facet arthropathy resulting in left traversing nerve root impingement, mild indentation of the left ventral cord, and increased moderate central canal stenosis and bilateral foraminal narrowing. C4-5: Mild posterior disc bulge osteophyte complex with uncovertebral and facet arthropathy resulting in unchanged minimal narrowing of the thecal sac and increased mild bilateral foraminal narrowing C5-6: Mild posterior disc bulge osteophyte complex with uncovertebral and facet arthropathy resulting in mildly increased mild-moderate central canal stenosis and bilateral foraminal narrowing C6-7: Mild posterior disc bulge osteophyte complex with uncovertebral and facet arthropathy resulting in no significant central canal stenosis and increased mild bilateral foraminal narrowing. C7-T1: No significant posterior disc protrusion, central canal stenosis, or foraminal narrowing. MRI/Spine Cervical W/WO Contrast IMPRESSION: Increased size of right T3 posterior element osteoblastic lesion compared to prior MRI cervical spine, compatible with osteoblastic metastasis. Stable small sclerotic foci in the C7, T3, T4, and T5 vertebral bodies from bone islands or treated osteoblastic lesions. Mild interval progression of multilevel degenerative disc disease as above. Electronically Signed: Ary Day MD at 10:45 EDT ,
== END | disposition home or self-care (01) ==
PROVIDERS: PCP Internal Medicine; Referring Provider Student in an Organized Health Care Education/Training Program; Visit Provider Student in an Organized Health Care Education/Training Program
DX: C79.51 Secondary malignant neoplasm of bone (principal)
CPT/HCPCS: 72156; A9575

== ENCOUNTER → 2024-01-15 | Outpatient (CLI) | payer MEDICARE, SELFPAY ==
--- OUTSIDE RECORDS SUMMARY | 2024-01-15 16:27 | XMS RPT_ITS | CCD ---
Author Organization [facility] Care Team Providers Care Manager Field Name Role Phone DAVID KIM DPM Admitting Unavailable DAVID KIM DPM Attending Unavailable DAVID KIM DPM Primary Care Unavailable BIGG ARELLANO Consulting Unavailable PROVIDER, UNKNOWN Consulting Unavailable Results Test Name Value Interpretation Reference Range Facil ity CNPNon 11-05-2020 CNPN Telephone (INTMWS) ----- LIGIA QUINTANA ([id number]) 1935 F Date Time Provider Department 11/05/20 BIGG ARELLANO INTWS During your visit today, we recorded the following information about you: Bigg Arellano MD 11/05/2020 1:58 PM Signed See fax from [facility] at [facility]. Patient requesting PT evaluation and treatment including aquatic therapy. This was ordered at her recent visit on 10/19/20. ASSESSMENT/PLAN: 1. Unsteady gait - ICD9: 781.2, ICD10: R26.81 (primary diagnosis) - CONSULT TO NON-[facility] FACILITY 2. At moderate risk for fall - ICD9: V15.88, ICD10: Z91.81 - CONSULT TO NON-[facility] FACILITY MD Daphney Messer LPN 11/06/2020 10:39 AM Signed Printed order faxed to [facility] at [phone]. Allergies As of Date: 11/05/2020 Noted Allergy Reaction PENICILLINS 04/25/2005 LISINOPRIL 12/13/2015 3 - Cough Date Reviewed: 10/19/2020 Reviewed by: Tiff Meza Cma - Fully Assessed Reason for Visit: outside PT order [Other] Primary Visit Diagnosis:Unsteady gait [R26.81] Other Visit Diagnosis:At moderate risk for fall [Z91.81] Order(s):CONSULT TO NON-[facility] FACILITY [[id number]] Order #: [id number] Prescriptions as of 11/06/2020 - potassium chloride SR (MICRO-K) 10 mEq CR capsule Take 1 capsule by mouth once daily. - hydroCHLOROthiazide 12.5 mg capsule Take 1 capsule by mouth once daily. - Ipratropium [place] (ATROVENT) 0.03 % nasal spray Use 2 Sprays in the nose twice daily as needed. - pantoprazole DR (PROTONIX) 20 mg tablet Take 1 tablet by mouth daily before breakfast. Take on empty stomach, 1/2 hr before meal. - levothyroxine (SYNTHROID) 75 mcg tablet Take 1 tablet by mouth once daily. Take on empty stomach. For Thyroid - losartan-hydroCHLOROthiaz omega (HYZAAR) 50-12.5 mg per tablet Take 1 tablet by mouth once daily. - simvastatin (ZOCOR) 10 mg tablet Take 1 tablet by mouth daily at bedtime. - metoprolol succinate ER (TOPROL XL) 25 mg 24 hr tablet Take 1 tablet by mouth once daily. - Halobetasol Propionate (ULTRAVATE) 0.05 % cream Apply 1 application to affected area twice daily as needed (rash in legs.). Apply sparingly. - beta-carotene,A,-vits C,E/mins (OCUVITE ORAL) Take 1 capsule by mouth once daily. - diphenhydrAMINE (BENADRYL) 25 mg capsule Take 25 mg by mouth as needed. - apixaban (ELIQUIS) 5 mg tab(s) Take 5 mg by mouth twice daily. - calcium citrate/vitamin D3 (CITRACAL + D ORAL) Take 1 tablet by mouth once daily. Patient taking as needed. - CYANOCOBALAMIN, VITAMIN B-12, (VITAMIN B-12 ORAL) Take 1 tablet by mouth. Patient taking 1 tablet couple times a week. - sertraline (ZOLOFT) 50 mg tablet Take 1 tablet by mouth once daily. - ibuprofen (MOTRIN) 200 mg tablet Take 1-2 tablets by mouth every 6 hours as needed for Pain (Take with food.). 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] 08/29/2005 05/07/2017 Essential hypertension [I10] 08/29/2005 Other seborrheic keratosis [L82.1] 01/04/2008 Osteoarthritis [M19.90] 08/01/2009 Hypertension [I10] 08/14/2009 10/30/2010 Vitamin D deficiency [E55.9] 05/13/2011 Scoliosis [M41.9] 11/18/2011 Dizziness [R42] 11/18/2011 02/24/2015 Low back pain [M54.5] 02/09/2012 Postmenopausal atrophic vaginitis [N95.2] 12/16/2013 05/07/2017 Atrial flutter, paroxysmal (HCC) [I48.92] 07/16/2018 Acquired hypothyroidism [E03.9] 08/26/2018 Gastroesophageal reflux disease [K21.9] 08/26/2018 Unsteady gait [R26.81] 11/05/2020 Encounter Status:Closed by DAPHNEY MILLER LPN on 11/06/20 [facility] OBSOLETEon 10-31-2020 OBSOLETE Refill (INTMWS) ----- LIGIA QUINTANA ([id number]) 1935 F Date Time Provider Department 10/31/20 BIGG ARELLANO INTMWS During your visit today, we recorded the following information about you: Patsy Cantu RN 10/31/2020 11:38 AM Signed Patient has been identified by name and date of : Yes Pharmacy phones for refill(s): Pending Prescriptions Disp Refills POTASSIUM CHLORIDE ER 10 MEQ CAPSULE,EXTENDED RELEASE 30 capsule 5 Sig: Take 1 capsule by mouth once daily. CJ: No Date of last office visit in primary care: 10/19/2020 Last 2 Encounter Wt Readings: Date: Wt: 10/19/2020 75.3 kg (166 lb) 02/03/2019 75.3 kg (166 lb) Previous labs/tests for medication: Component Latest Ref Rng AND Units 10/22/2020 Glucose 74 - 99 mg/dL 83 BUN 7 - 21 mg/dL 25 (H) Creatinine 0.58 - 0.96 mg/dL 0.96 Sodium 136 - 144 mmol/L 135 (L) Potassium 3.7 - 5.1 mmol/L 4.3 Chloride 97 - 105 mmol/L 99 CO2 22 - 30 mmol/L 26 Anion Gap 9 - 18 mmol/L 10 Calcium 8.5 - 10.2 mg/dL 9.6 eGFR- >60 eGFR-All Other Races . 55 Please advise. Thank you. Patsy Cantu RN Allergies As of Date: 10/31/2020 Noted Allergy Reaction PENICILLINS 04/25/2005 LISINOPRIL 12/13/2015 3 - Cough Date Reviewed: 10/19/2020 Reviewed by: Tiff Meza Medical Laboratory Technologist - Fully Assessed Reason for Visit: Refill Request [94] Visit Diagnosis:Essential hypertension [I10] Order(s):potassium chloride SR (MICRO-K) 10 mEq CR capsuleTake 1 capsule by mouth once daily.Disp: 30 capsuleRfl: 5 Prescriptions as of 10/31/2020 - potassium chloride SR (MICRO-K) 10 mEq CR capsule Take 1 capsule by mouth once daily. - hydroCHLOROthiazide 12.5 mg capsule Take 1 capsule by mouth once daily. - Ipratropium [place] (ATROVENT) 0.03 % nasal spray Use 2 Sprays in the nose twice daily as needed. - pantoprazole DR (PROTONIX) 20 mg tablet Take 1 tablet by mouth daily before breakfast. Take on empty stomach, 1/2 hr before meal. - levothyroxine (SYNTHROID) 75 mcg tablet Take 1 tablet by mouth once daily. Take on empty stomach. For Thyroid - losartan-hydroCHLOROthiaz omega (HYZAAR) 50-12.5 mg per tablet Take 1 tablet by mouth once daily. - simvastatin (ZOCOR) 10 mg tablet Take 1 tablet by mouth daily at bedtime. - metoprolol succinate ER (TOPROL XL) 25 mg 24 hr tablet Take 1 tablet by mouth once daily. - Halobetasol Propionate (ULTRAVATE) 0.05 % cream Apply 1 application to affected area twice daily as needed (rash in legs.). Apply sparingly. - beta-carotene,A,-vits C,E/mins (OCUVITE ORAL) Take 1 capsule by mouth once daily. - diphenhydrAMINE (BENADRYL) 25 mg capsule Take 25 mg by mouth as needed. - apixaban (ELIQUIS) 5 mg tab(s) Take 5 mg by mouth twice daily. - calcium citrate/vitamin D3 (CITRACAL + D ORAL) Take 1 tablet by mouth once daily. Patient taking as needed. - CYANOCOBALAMIN, VITAMIN B-12, (VITAMIN B-12 ORAL) Take 1 tablet by mouth. Patient taking 1 tablet couple times a week. - sertraline (ZOLOFT) 50 mg tablet Take 1 tablet by mouth once daily. - ibuprofen (MOTRIN) 200 mg tablet Take 1-2 tablets by mouth every 6 hours as needed for Pain (Take with food.). 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] 08/29/2005 05/07/2017 Essential hypertension [I10] 08/29/2005 Other seborrheic keratosis [L82.1] 01/04/2008 Osteoarthritis [M19.90] 08/01/2009 Hypertension [I10] 08/14/2009 10/30/2010 Vitamin D deficiency [E55.9] 05/13/2011 Scoliosis [M41.9] 11/18/2011 Dizziness [R42] 11/18/2011 02/24/2015 Low back pain [M54.5] 02/09/2012 Postmenopausal atrophic vaginitis [N95.2] 12/16/2013 05/07/2017 Atrial flutter, paroxysmal (HCC) [I48.92] 07/16/2018 Acquired hypothyroidism [E03.9] 08/26/2018 Gastroesophageal reflux disease [K21.9] 08/26/2018 Prescriptions ordered this encounter Disp Refills Start End POTASSIUM CHLORIDE ER 10 MEQ CAPSULE* 30 c* 5 10/31/2020 Route: ORAL Sig: Take 1 capsule by mouth once daily. Medications Discontinued During This Encounter Prescriptions - potassium chloride SR (MICRO-K) 10 mEq CR capsule (Discontinued) Take 1 capsule by mouth once daily. Encounter Status:Closed by FRANCISCO JAVIER CUELLAR on 10/31/20 Normal [facility] Devi 10-30-2020 [place] Telephone (INTMWS) ----- LIGIA QUINTANA ([id number]) 1935 F Date Time Provider Department 10/30/20 BIGG ARELLANO During your visit today, we recorded the following information about you: Tiff Meza Cma 10/30/2020 8:08 AM Signed ----- Message from Bigg Arellano MD sent at 10/29/2020 7:33 PM EDT ----- TSH normal. Tiff Meza Cma 10/30/2020 8:57 AM Signed Patient is notified of all information and verbalizes understanding Allergies As of Date: 10/30/2020 Noted Allergy Reaction PENICILLINS 04/25/2005 LISINOPRIL 12/13/2015 3 - Cough Date Reviewed: 10/19/2020 Reviewed by: Tiff Meza Cma - Fully Assessed Reason for Visit: Results [95] Prescriptions as of 10/30/2020 - hydroCHLOROthiazide 12.5 mg capsule Take 1 capsule by mouth once daily. - Ipratropium [place] (ATROVENT) 0.03 % nasal spray Use 2 Sprays in the nose twice daily as needed. - pantoprazole DR (PROTONIX) 20 mg tablet Take 1 tablet by mouth daily before breakfast. Take on empty stomach, 1/2 hr before meal. - levothyroxine (SYNTHROID) 75 mcg tablet Take 1 tablet by mouth once daily. Take on empty stomach. For Thyroid - losartan-hydroCHLOROthiaz omega (HYZAAR) 50-12.5 mg per tablet Take 1 tablet by mouth once daily. - simvastatin (ZOCOR) 10 mg tablet Take 1 tablet by mouth daily at bedtime. - potassium chloride SR (MICRO-K) 10 mEq CR capsule Take 1 capsule by mouth once daily. - metoprolol succinate ER (TOPROL XL) 25 mg 24 hr tablet Take 1 tablet by mouth once daily. - Halobetasol Propionate (ULTRAVATE) 0.05 % cream Apply 1 application to affected area twice daily as needed (rash in legs.). Apply sparingly. - beta-carotene,A,-vits C,E/mins (OCUVITE ORAL) Take 1 capsule by mouth once daily. - diphenhydrAMINE (BENADRYL) 25 mg capsule Take 25 mg by mouth as needed. - apixaban (ELIQUIS) 5 mg tab(s) Take 5 mg by mouth twice daily. - calcium citrate/vitamin D3 (CITRACAL + D ORAL) Take 1 tablet by mouth once daily. Patient taking as needed. - CYANOCOBALAMIN, VITAMIN B-12, (VITAMIN B-12 ORAL) Take 1 tablet by mouth. Patient taking 1 tablet couple times a week. - sertraline (ZOLOFT) 50 mg tablet Take 1 tablet by mouth once daily. - ibuprofen (MOTRIN) 200 mg tablet Take 1-2 tablets by mouth every 6 hours as needed for Pain (Take with food.). 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] 08/29/2005 05/07/2017 Essential hypertension [I10] 08/29/2005 Other seborrheic keratosis [L82.1] 01/04/2008 Osteoarthritis [M19.90] 08/01/2009 Hypertension [I10] 08/14/2009 10/30/2010 Vitamin D deficiency [E55.9] 05/13/2011 Scoliosis [M41.9] 11/18/2011 Dizziness [R42] 11/18/2011 02/24/2015 Low back pain [M54.5] 02/09/2012 Postmenopausal atrophic vaginitis [N95.2] 12/16/2013 05/07/2017 Atrial flutter, paroxysmal (HCC) [I48.92] 07/16/2018 Acquired hypothyroidism [E03.9] 08/26/2018 Gastroesophageal reflux disease [K21.9] 08/26/2018 Encounter Status:Closed by TIFF MEZA CMA on 10/30/20 Normal [facility] BD DXA - AXIAL SKELETONon BD DXA - AXIAL SKELETON * * *Final Report* * * DATE OF EXAM: Oct 29 2020 2:34PM [facility] [id number] - BD DXA - AXIAL SKELETON / PROCEDURE REASON: multiple diagnoses * * * * Physician Interpretation * * * * PROCEDURE: BD DXA - AXIAL SKELETON INDICATION: Disorder of bone and cartilage Disorder of bone and cartilage TECHNIQUE: Low dose AP spine and hip images COMPARISON: May 20, 2017 LUMBAR SPINE: The bone mineral density from L1 through L4 is 1.023 grams per square centimeter which yields a T-score of -0.2. There has been a 0.8% interval decrease in bone mineral density. RIGHT FOREARM: The bone mineral density of the radius 1/3 is 0.632 grams per square centimeter which yields a T-score of -1.0 . There has been a 0.7% interval increase in bone mineral density. IMPRESSION: Osteopenia in the right forearm. [facility] ORG. CLASSIFICATION OF BONE MASS CLASSIFICATION T-SCORE Normal Greater than -1 Low Bone Mass Between -1 and -2.5 (Osteopenia) Osteoporosis Less than or equal to -2.5 Water Chemist: TYREE Transcribe Date/Time: Oct 29 2020 2:39P Dictated by : ARY SIMPSON MD This examination was interpreted and the report reviewed and electronically signed by: ARY SIMPSON MD on Oct 29 2020 2:40PM EST [id number] Normal [facility] Remote BMP (for [facility] use only )on 10-22-2020 Anion gap [Moles/Vol] 10 mmol/L Normal 9-18 [facility] Comment on above: Performed By: #### RBMP, RTSH #### [facility] [address] [place] [address] Calcium [Mass/Vol] 9.6 mg/dL Normal 8.5-10.2 [facility] Comment on above: Performed By: #### RBMP, RTSH #### [facility] [address] [place] [phone] Chloride [Moles/Vol] 99 mmol/L Normal 97-105 [facility] Comment on above: Performed By: #### RBMP, RTSH #### [facility] [address] [place] [phone] CO2 [Moles/Vol] 26 mmol/L Normal 22-30 [facility] Comment on above: Performed By: #### RBMP, RTSH #### [facility] [address] [place] [address] Creatinine [Mass/Vol] 0.96 mg/dL Normal 0.58-0.96 [facility] Comment on above: Performed By: #### RBMP, RTSH #### [facility] [address] [place] [address] eGFR- Amer. >60 Normal [facility] Comment on above: Performed By: #### RBMP, RTSH #### [facility] [address] [place] [address] eGFR-All Other Races 55 . Normal [facility] Comment on above: Result Comment: eGFR (Estimated GFR) Uni ts of measure: mL/min/1.73 meters squared eGFR is derived from the reexpressed MDRD Study equation using the following parameters: serum creatinine, age, gender and race. The creatinine assay has been calibrated to be traceable to IDMS. An eGFR <60 mL/min/1.73m2 for >3 months is consistent with chronic kidney disease. Refer to KDOQI guidelines for clinical interpretation. In patients with unstable renal function, e.g. those with acute kidney injury, the eGFR may not accurately reflect actual GFR. Performed By: #### John Paul MARTINEZ, RTS #### [facility] [address] [place], [place] [address] Glucose [Mass/Vol] 83 mg/dL Normal 74-99 [facility] Comment on above: Result Comment: The [place] Diabetes As sociation (ADA) provides guidance for cutoff values for fasting glucose and random glucose. The ADA defines fasting as no caloric intake for at least 8 hours. Fasting plasma glucose results between 100 to 125 mg/dL indicate increased risk for diabetes (prediabetes). Fasting plasma glucose results greater than or equal to 126 mg/dL meet the criteria for diagnosis of diabetes. In the absence of unequivocal hyperglycemia, results should be confirmed by repeat testing. In a patient with classic symptoms of hyperglycemia or hyperglycemic crisis, random plasma glucose results greater than or equal to 200 mg/dL meet the criteria for diagnosis of diabetes. Reference: Standards of Medical Care in Diabetes 2016, [place] Diabetes Association. Diabetes Care. 2016.39(Suppl 1). Performed By: #### John Paul MARTINEZ, RTS #### [facility] [address] [place], [place] [address] Potassium [Moles/Vol] 4.3 mmol/L Normal 3.7-5.1 [facility] Comment on above: Performed By: #### BHARGAVI, RTS #### [facility] [address] [place], [place] [address] Sodium [Moles/Vol] 135 mmol/L Low 136-144 [facility] Comment on above: Performed By: #### BHARGAVI, RTSH #### [facility] [address] [place], [place] [address] Urea nitrogen [Mass/Vol] 25 mg/dL High 7-21 [facility] Comment on above: Performed By: #### BHARGAVI, RTSH #### [facility] [address] [place], [place] [address] Remote TSH (for [facility] use onl y)on 10-22-2020 TSH Qn 2.680 m[IU]/L Normal 0.270-4.200 [facility] Comment on above: Performed By: #### RBMP, RTS #### [facility] [address] [place], [place] [address] CNOVon 10-19-2020 CNOV Office Visit (INTMWS ) ----- LIGIA QUINTANA ([id number]) 1935 F Date Time Provider Department 10/19/20 11:40 AM BIGG ARELLANO INTMWS During your visit today, we recorded the following information about you: Temperature Pulse Respiration Blood pressure 97.6 degrees 55/minute 14/minute 110/64 Weight 75.3 kg Bigg Arellano MD 10/19/2020 1:31 PM Signed Medicare Yearly Visit Medical B eligibilty date 2000 Date of last exam 05/13/2018 PAST MEDICAL HISTORY Diagnosis Date - Chronic rhinitis 04/25/2005 - DEPRESSIVE DISORDER NEC 04/25/2005 - Diverticulosis of colon (without mention of hemorrhage) - HYPERLIPIDEMIA NEC/NOS 04/25/2005 - HYPERTENSION NOS 08/29/2005 - MENINGIOMA 08/29/2005 - Osteoarthritis 08/01/2009 - OSTEOPENIA 08/29/2005 - Postmenopausal atrophic vaginitis 12/16/2013 - SEBORRHEIC KERATOSIS NOS 01/04/2008 PAST SURGICAL HISTORY Procedure Laterality Date - COLONOSCOP W/ OR W/O BRSH SPEC 04/10/2011 Colonoscopy - LIGATE FALLOPIAN TUBE Tubal ligation - PAST SURGICAL HISTORY OF 01/2011 2 skin bxs /benign - TOTAL HIP REPLACEMENT Right 01/2010 Hip replacement, total-right - TOTAL HIP REPLACEMENT Left 09/04/2016 ALLERGIES: Penicillins and Lisinopril Medications reviewed: Yes FAMILY HISTORY Problem Relation Age of Onset - Hypertension Father - other (syringomyelia) Brother - Alcohol/Drug Other ALCOHOL AND DEPRESSION - Breast Cancer Daughter - Rheumatologic disease Daughter RA SOCIAL HISTORY: Social History Tobacco Use - Smoking status: Never Smoker - Smokeless tobacco: Never Used Substance Use Topics - Alcohol use: Yes Comment: wine occasionally - Drug use: No Ligia denies regular aerobic exercise or likes to exercise by gardening. She watches her diet for sodium, low fat and low cholesterol most of the time. List of current specialists seen: Dr. Newberry, cardiology. Dr. Blas, psychiatry. Dr. Tariq-Semaj gynecology. , ophthalmology. Dr. David Kim, podiatry. ? End of Live Planning discussed including patients advanced directive wishes: Copy needed. I am willing to follow Ligia's advanced directives. PHQ-2 / Depression screen She in the past two weeks denies having felt down, depressed, hopeless or with little interest or pleasure in doing things. Functional Ability/Safety Screen 1. Was the patient's timed Up and Go test unsteady or longer than 30 seconds? No 2. Does the patient need help with the phone, transportation, shopping,preparing meals, housework, laundry, medications or managing money? No 3. Does your home have rugs in the hallway, lack of grab bars in the bathroom, lack of handrails on the stairs or have poor lighting? No Hearing Evaluation: normal PHYSICAL EXAM BP 110/64 Pulse (!) 55 Temp 36.4 ?C (97.6 ?F) (Temporal) Resp 14 Wt 75.3 kg (166 lb) SpO2 97% BMI 28.49 kg/m? Alert and oriented X 3: YES Body mass index is 28.49 kg/m?. Visual acuity: OD: 20/50 OS: 20/40 OU: 20/40 The Mini Cog(c): Word recall=3/3 + Clock drawing=2/2=5/5. (<3 is positive). ASSESSMENT/PLAN: 85 year old female The following prevention plan was discussed during the office visit and provided to the patient: - Fall avoidance - Counseling for Exercise MD Bigg Messer MD 10/19/2020 1:31 PM Signed This note was created using NoteWriter. Subjective Ligiajamee Quintana is a 85 year old female. She had been falling more, at least 3 times or more in the past 6 months, and she felt less safe on her feet. She had no major injuries, since she was able to hold onto things in the house. She gets bruises from these falls, as she was on apixiban. Her other issues were stable. Review of Systems Constitutional: Positive for fatigue. Negative for appetite change, chills, fever and unexpected weight change. HENT: Negative. Respiratory: Negative. Cardiovascular: Negative. Gastrointestinal: Negative. Genitourinary: Negative. Musculoskeletal: Positive for arthralgias, back pain and gait problem. Skin: Negative. Neurological: Positive for weakness. Negative for dizziness, facial asymmetry, numbness and headaches. Psychiatric/Behavioral: Positive for dysphoric mood. ACTIVE PROBLEM LIST Depressive Disorder Chronic Rhinitis Hyperlipidemia Disorder of Bone and Cartilage Essential Hypertension Other seborrheic keratosis Osteoarthritis Vitamin D Deficiency Scoliosis Low Back Pain Atrial Flutter, Paroxysmal (Hcc) Acquired Hypothyroidism Gastroesophageal Reflux Disease Current Outpatient Medications Medication Sig - hydroCHLOROthiazide 12.5 mg capsule Take 1 capsule by mouth once daily. - Ipratropium [place] (ATROVENT) 0.03 % nasal spray Use 2 Sprays in the nose twice daily as needed. - levothyroxine (SYNTHROID) 75 mcg tablet Take 1 tablet by mouth once daily. Take on emp (more content not included)... Normal [facility] OBSOLETEon 09-19-2020 OBSOLETE Refill (INTMWS) ----- LIGIA QUINTANA ([id number]) 1935 F Date Time Provider Department 09/19/20 BIGG ARELLANO INTMWS During your visit today, we recorded the following information about you: Hernan Park RN 09/19/2020 1:01 PM Signed Patient has been identified by name and date of : Yes Pharmacy phones for refill(s): Pending Prescriptions Disp Refills HYDROCHLOROTHIAZIDE 12.5 MG CAPSULE 30 capsule 5 Sig: Take 1 capsule by mouth once daily. CJ: No Date of last office visit with pcp: 03-15-20. Next appt: 10-19-20 Last 2 Encounter Wt Readings: Date: Wt: 02/03/2019 75.3 kg (166 lb) 11/03/2018 77.6 kg (171 lb) Previous labs/tests for medication: Blood Pressure: BUN (mg/dL) Date Value 02/07/2020 22 Sodium (mmol/L) Date Value 02/07/2020 136 Last 1 Encounter BP Readings: Date: BP: 02/03/2019 132/70 Please advise. Thank you. Hernan Park RN Allergies As of Date: 09/19/2020 Noted Allergy Reaction PENICILLINS 04/25/2005 LISINOPRIL 12/13/2015 3 - Cough Date Reviewed: 03/15/2020 Reviewed by: Ale Naranjo LPN - Fully Assessed Reason for Visit: Refill Request [94] Visit Diagnosis:Essential hypertension [I10] Order(s):hydroCHLOROthiaz omega 12.5 mg capsuleTake 1 capsule by mouth once daily.Disp: 30 capsuleRfl: 5 Prescriptions as of 09/19/2020 Sig: HYDROCHLOROTHIAZIDE 12.5 MG C* Take 1 capsule by mouth once * IPRATROPIUM BROMIDE 21 MCG (0* Use 2 Sprays in the nose twic* PANTOPRAZOLE 20 MG TABLET,DEL* Take 1 tablet by mouth daily * LEVOTHYROXINE 75 MCG TABLET Take 1 tablet by mouth once d* LOSARTAN 50 MG-HYDROCHLOROTHI* Take 1 tablet by mouth once d* SIMVASTATIN 10 MG TABLET Take 1 tablet by mouth daily * POTASSIUM CHLORIDE ER 10 MEQ * Take 1 capsule by mouth once * METOPROLOL SUCCINATE ER 25 MG* Take 1 tablet by mouth once d* HALOBETASOL PROPIONATE 0.05 %* Apply 1 application to affect* OCUVITE ORAL Take 1 capsule by mouth once * DIPHENHYDRAMINE 25 MG CAPSULE Take 25 mg by mouth as needed. APIXABAN 5 MG TABLET Take 5 mg by mouth twice michel* CITRACAL + D ORAL Take 1 tablet by mouth once d* VITAMIN B-12 ORAL Take 1 tablet by mouth. 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] 08/29/2005 05/07/2017 Essential hypertension [I10] 08/29/2005 Other seborrheic keratosis [L82.1] 01/04/2008 Osteoarthritis [M19.90] 08/01/2009 Hypertension [I10] 08/14/2009 10/30/2010 Vitamin D deficiency [E55.9] 05/13/2011 Scoliosis [M41.9] 11/18/2011 Dizziness [R42] 11/18/2011 02/24/2015 Low back pain [M54.5] 02/09/2012 Postmenopausal atrophic vaginitis [N95.2] 12/16/2013 05/07/2017 Atrial flutter, paroxysmal (HCC) [I48.92] 07/16/2018 Acquired hypothyroidism [E03.9] 08/26/2018 Gastroesophageal reflux disease [K21.9] 08/26/2018 Prescriptions ordered this encounter Disp Refills Start End HYDROCHLOROTHIAZIDE 12.5 MG CAPSULE 30 c* 5 09/20/2020 Route: ORAL Sig: Take 1 capsule by mouth once daily. Medications Discontinued During This Encounter Prescriptions - Hydrochlorothiazide 12.5 mg capsule (Discontinued) Take 1 capsule by mouth once daily. Encounter Status:Closed by BIGG ARELLANO on 09/20/20 [facility] OBSOLETEon 04-17-2020 OBSOLETE Refill (INTMWS) ----- LIGIA QUINTANA ([id number]) 1935 F Date Time Provider Department 04/17/20 BIGG ARELLANO During your visit today, we recorded the following information about you: Clau Tovar RN, RN 04/17/2020 11:06 AM Signed Patient has been identified by name and date of : Yes Pharmacy phones for refill(s): Pending Prescriptions Disp Refills IPRATROPIUM BROMIDE 0.03 % NASAL SPRAY 90 g 3 Sig: Use 2 Sprays in the nose twice daily as needed. CJ: No PANTOPRAZOLE 20 MG TABLET,DELAYED RELEASE 90 tablet 3 Sig: Take 1 tablet by mouth daily before breakfast. Take on empty stomach, 1/2 hr before meal. CJ: No LEVOTHYROXINE 75 MCG TABLET 90 tablet 3 Sig: Take 1 tablet by mouth once daily. Take on empty stomach. For Thyroid CJ: No LOSARTAN 50 MG-HYDROCHLOROTHIAZIDE 12.5 MG TABLET 90 tablet 3 Sig: Take 1 tablet by mouth once daily. CJ: No Date of last office visit in primary care: Insurance is requiring a 90 day supply. Last 2 Encounter Wt Readings: Date: Wt: 02/03/2019 75.3 kg (166 lb) 11/03/2018 77.6 kg (171 lb) Previous labs/tests for medication: Thyroid: TSH (uU/mL) Date Value 03/12/2020 2.020 Blood Pressure: BUN (mg/dL) Date Value 02/07/2020 22 Sodium (mmol/L) Date Value 02/07/2020 136 Last 1 Encounter BP Readings: Date: BP: 02/03/2019 132/70 Please advise. Thank you. Clau Tovar RN Allergies As of Date: 04/17/2020 Noted Allergy Reaction PENICILLINS 04/25/2005 LISINOPRIL 12/13/2015 3 - Cough Date Reviewed: 03/15/2020 Reviewed by: Ale Naranjo LPN - Fully Assessed Reason for Visit: Refill Request - 90 Day Supply Requested [Other] Cmt: Pharmacy Calling Reason For Visit History Recorded Visit Diagnoses:Chronic rhinitis [J31.0] Gastroesophageal reflux disease, unspecified whether esophagitis present [K21.9] Acquired hypothyroidism [E03.9] Essential hypertension [I10] Order(s):Ipratropium [place] (ATROVENT) 0.03 % nasal sprayUse 2 Sprays in the nose twice daily as needed.Disp: 90 mLRfl: [address] (PROTONIX) 20 mg tabletTake 1 tablet by mouth daily before breakfast. Take on empty stomach, 1/2 hr before meal.Disp: 90 tabletRfl: 3 levothyroxine (SYNTHROID) 75 mcg tabletTake 1 tablet by mouth once daily. Take on empty stomach. For ThyroidDisp: 90 tabletRfl: 3 losartan-hydroCHLOROthiaz omega (HYZAAR) 50-12.5 mg per tabletTake 1 tablet by mouth once daily.Disp: 90 tabletRfl: 3 Prescriptions as of 04/17/2020 Sig: IPRATROPIUM BROMIDE 0.03 % NA* Use 2 Sprays in the nose twic* PANTOPRAZOLE 20 MG TABLET,DEL* Take 1 tablet by mouth daily * LEVOTHYROXINE 75 MCG TABLET Take 1 tablet by mouth once d* LOSARTAN 50 MG-HYDROCHLOROTHI* Take 1 tablet by mouth once d* SIMVASTATIN 10 MG TABLET Take 1 tablet by mouth daily * POTASSIUM CHLORIDE ER 10 MEQ * Take 1 capsule by mouth once * METOPROLOL SUCCINATE ER 25 MG* Take 1 tablet by mouth once d* HYDROCHLOROTHIAZIDE 12.5 MG C* Take 1 capsule by mouth once * HALOBETASOL PROPIONATE 0.05 %* Apply 1 application to affect* OCUVITE ORAL Take 1 capsule by mouth once * DIPHENHYDRAMINE 25 MG CAPSULE Take 25 mg by mouth as needed. APIXABAN 5 MG TABLET Take 5 mg by mouth twice michel* CITRACAL + D ORAL Take 1 tablet by mouth once d* VITAMIN B-12 ORAL Take 1 tablet by mouth. Patie* SERTRALINE 50 MG TABLET Take 1 tablet by mouth once d* IBUPROFEN 200 MG TABLET Take 1-2 tablets by mouth aramis* Problem List As Of Date 04/17/2020 Noted Resolved Depressive disorder [F32.9] 04/25/2005 CHRONIC RHINITIS [J31.0] 04/25/2005 Hyperlipidemia [E78.5] 04/25/2005 More... Disorder of bone and cartilage [M89.9, M94.9] 08/29/2005 MENINGIOMA [D32.0] 08/29/2005 05/07/2017 Essential hypertension [I10] 08/29/2005 Other seborrheic keratosis [L82.1] 01/04/2008 More... Osteoarthritis [M19.90] 08/01/2009 Hypertension [I10] 08/14/2009 10/30/2010 Vitamin D deficiency [E55.9] 05/13/2011 Scoliosis [M41.9] 11/18/2011 Dizziness [R42] 11/18/2011 02/24/2015 Low back pain [M54.5] 02/09/2012 More... Postmenopausal atrophic vaginitis [N95.2] 12/16/2013 05/07/2017 Atrial flutter, paroxysmal (HCC) [I48.92] 07/16/2018 Acquired hypothyroidism [E03.9] 08/26/2018 Gastroesophageal reflux disease [K21.9] 08/26/2018 Prescriptions ordered this encounter Disp Refills Start End IPRATROPIUM BROMIDE 0.03 % NASAL SPR* 90 mL 3 04/17/2020 Route: NASAL Sig: Use 2 Sprays in the nose twice daily as needed. PANTOPRAZOLE 20 MG TABLET,DELAYED RE* 90 t* 3 04/17/2020 Route: ORAL Sig: Take 1 tablet by mouth daily before breakfast. Take on empty stomach, 1/2 hr before meal. LEVOTHYROXINE 75 MCG TABLET 90 t* 3 04/17/2020 Route: ORAL Sig: Take 1 tablet by mouth once daily. Take on empty stomach. For Thyroid LOSARTAN 50 MG-HYDROCHLOROTHIAZIDE 1* 90 t* 3 04/17/2020 Route: ORAL Sig: Take 1 tablet by mouth once daily. Med (more content not included)... Normal [facility] CV VENOUS LEG LTon 9 CV VENOUS LEG LT [place] [address] Patient: LIGIA QUINTANA Phone#: : [phone] Age: 83 Gender: F Pt. Type: Out Account: [id number] Location: Ordering: DAVID KIM Exam Date: 04/09/2018/12:55 Family Phys: BIGG ARELLANO Charge Code: [id number] Physician: [place] Order #: [id number] DLP Dose#: PROCEDURE: VENOUS DOPPLER LT LEG COMPARISON: None. INDICATIONS: Left lower extremity swelling TECHNIQUE: Color duplex Doppler ultrasound evaluation analysis was performed in the usual manner. CORONER TRANSPORT TECHNICIAN: SUSANNA RISK FACTORS FOR VENOUS DISEASE: Other Left lower leg swelling EXAMINATION: RIGHT +Present -Reduced o Absent LEFT SPONT PHASIC AUG REFLUX COMP SPONT PHASIC AUG REFLUX COMP + + + o + CFV + + + o + SFJ + FV (prox) + + + o + FV (mid) + FV (dist) + POP V + + + o + T/P TRUNK + + + o + PTV + + + o + PERONEAL V + + + o + GSV + GASTROC SOLEAL V CORONER TRANSPORT TECHNICIAN'S NOTES: Left lower extremity negative for DVT, There is fluid collection posterior medial left knee. Continued Report - Page 2 of 2 Patient: LIGIA QUINTANA Phone#: : 1935 Age: 83 Gender: F Pt. Type: Out Account: [id number] Location: Ordering: DAVID KIM Exam Date: 04/09/2018/12:55 Family Phys: BIGG ARELLANO Charge Code: [id number] Physician: [place] Order #: [id number] DLP Dose#: FINDINGS: THROMBI: None visible. COMPRESSIBILITY: Normal. OTHER: Posterior to the left knee there is a anechoic collection measuring roughly 3.8 x 1.6 x 1.0 cm. No internal vascularity. CONCLUSION: 1. No evidence of deep venous thrombosis in the left lower extremity. 2. Fluid collection posterior to the left knee. The differential includes Saul's cyst versus resolving hematoma. Dictated by: Deb Quispe MD on 04/09/2018 at 14:03 Approved by: Deb Quispe MD on 04/09/2018 at 14:03 Normal [facility] Encounters Encounter Date Encounter Type Care Provider Facility Start: 04-09-2018 End: 04-09-2018 Patient encounter procedure DAVID KIM [facility] Payers Date Payer Category Payer Unknown [id number] Medicare [id number] Progress note 10-29-2020 Note Date & Type Note Facility 10-29-2020 Note HNO ID: [id number] Author: RT Ruchi(R) Service: ? Author Type: Housekeeping Department Worker Type: Progress Notes Filed: 10/29/2020 2:24 PM Note Text: Radiology Service Progress Note PATIENT NAME: Ligia Quintana DATE OF SERVICE: October 29, 2020 TIME: 2:04 PM PATIENT IDENTITY VERIFICATION COMPLETED USING TWO (2) IDENTIFIERS: Name and Date of confirmed by patient verbally. FALL SCREENING: Has the patient had 2 falls in the last year or 1 fall with injury or currently using an Ambulatory Assistive Device (Walker, Cane, Wheelchair, Crutches, etc.)? No PATIENT GENDER DATA: Female. status: : No status: NO. PATIENT RELEVANT IMPLANT DATA REVIEWED: Not Applicable RADIOLOGY DEPARTMENT: Bone Density PERIPHERAL IV DATA: Not applicable SIGNED BY: RT Ruchi(R) October 29, 2020 2:04 PM [facility] Progress note 10-19-2020 Note Date & Type Note Facility 10-19-2020 Note HNO ID: [id number] Author: Bigg Arellano MD Service: ? Author Type: Physician Type: Progress Notes Filed: 10/19/2020 1:31 PM Note Text: This note was created using Soundflavorriter. Subjective Ligia Quintana is a 85 year old female. She had been falling more, at least 3 times or more in the past 6 months, and she felt less safe on her feet. She had no major injuries, since she was able to hold onto things in the house. She gets bruises from these falls, as she was on apixiban. Her other issues were stable. Review of Systems Constitutional: Positive for fatigue. Negative for appetite change, chills, fever and unexpected weight change. HENT: Negative. Respiratory: Negative. Cardiovascular: Negative. Gastrointestinal: Negative. Genitourinary: Negative. Musculoskeletal: Positive for arthralgias, back pain and gait problem. Skin: Negative. Neurological: Positive for weakness. Negative for dizziness, facial asymmetry, numbness and headaches. Psychiatric/Behavioral: Positive for dysphoric mood. ACTIVE PROBLEM LIST Depressive Disorder Chronic Rhinitis Hyperlipidemia Disorder of Bone and Cartilage Essential Hypertension Other seborrheic keratosis Osteoarthritis Vitamin D Deficiency Scoliosis Low Back Pain Atrial Flutter, Paroxysmal (Hcc) Acquired Hypothyroidism Gastroesophageal Reflux Disease Current Outpatient Medications Medication Sig - hydroCHLOROthiazide 12.5 mg capsule Take 1 capsule by mouth once daily. - Ipratropium [place] (ATROVENT) 0.03 % nasal spray Use 2 Sprays in the nose twice daily as needed. - levothyroxine (SYNTHROID) 75 mcg tablet Take 1 tablet by mouth once daily. Take on empty stomach. For Thyroid - losartan-hydroCHLOROthiazide (HYZAAR) 50-12.5 mg per tablet Take 1 tablet by mouth once daily. - simvastatin (ZOCOR) 10 mg tablet Take 1 tablet by mouth daily at bedtime. - metoprolol succinate ER (TOPROL XL) 25 mg 24 hr tablet Take 1 tablet by mouth once daily. - apixaban (ELIQUIS) 5 mg tab(s) Take 5 mg by mouth twice daily. - sertraline (ZOLOFT) 50 mg tablet Take 1 tablet by mouth once daily. - pantoprazole DR (PROTONIX) 20 mg tablet Take 1 tablet by mouth daily before breakfast. Take on empty stomach, 1/2 hr before meal. - potassium chloride SR (MICRO-K) 10 mEq CR capsule Take 1 capsule by mouth once daily. - Halobetasol Propionate (ULTRAVATE) 0.05 % cream Apply 1 application to affected area twice daily as needed (rash in legs.). Apply sparingly. - beta-carotene,A,-vits C,E/mins (OCUVITE ORAL) Take 1 capsule by mouth once daily. - diphenhydrAMINE (BENADRYL) 25 mg capsule Take 25 mg by mouth as needed. - calcium citrate/vitamin D3 (CITRACAL + D ORAL) Take 1 tablet by mouth once daily. Patient taking as needed. - CYANOCOBALAMIN, VITAMIN B-12, (VITAMIN B-12 ORAL) Take 1 tablet by mouth. Patient taking 1 tablet couple times a week. - ibuprofen (MOTRIN) 200 mg tablet Take 1-2 tablets by mouth every 6 hours as needed for Pain (Take with food.). No current facility-administered medications for this visit. Objective BP 110/64 Pulse (!) 55 Temp 36.4 ?C (97.6 ?F) (Temporal) Resp 14 Wt 75.3 kg (166 lb) SpO2 97% BMI 28.49 kg/m? Physical Exam Constitutional: General: She is not in acute distress. HENT: Head: Atraumatic. Eyes: Extraocular Movements: Extraocular movements intact. Conjunctiva/sclera: Conjunctivae normal. Cardiovascular: Rate and Rhythm: Normal rate. Rhythm irregular. Heart sounds: No murmur heard. No gallop. Pulmonary: Effort: Pulmonary effort is normal. Breath sounds: Normal breath sounds. Abdominal: Palpations: Abdomen is soft. Tenderness: There is no abdominal tenderness. Musculoskeletal: Thoracic back: Scoliosis present. Lumbar back: No tenderness or bony tenderness. Negative right straight leg raise test and negative left straight leg raise test. Scoliosis present. Neurological: General: No focal deficit present. Mental Status: She is alert and oriented to person, place, and time. Cranial Nerves: Cranial nerves are intact. Sensory: No sensory deficit. Motor: No weakness, tremor or abnormal muscle tone. Coordination: Romberg sign negative. Coordination normal. Gait: Gait abnormal. Comments: Vestibular gait. Assessment and Plan 1. Medicare annual wellness visit, subsequent - ICD9: V70.0, ICD10: Z00.00 (primary diagnosis) See wellness note. 2. Atrial flutter, paroxysmal (HCC) - ICD9: 427.32, ICD10: I48.92 Controlled, anticoagulated. 3. Scoliosis, unspecified scoliosis type, unspecified spinal region - ICD9: 737.30, ICD10: M41.9 Chronic. 4. Disorder of bone and cartilage - ICD9: 733.90, ICD10: M89.9, M94.9 - DXA-AXIAL SKELETON 5. Unsteady gait - ICD9: 781.2, ICD10: R26.81 - CONSULT TO PHYSICAL THERAPY 6. At moderate risk for fall - ICD9: V15.88, ICD10: Z91.81 - CONSULT TO PHYSICAL THERAPY Bigg Arellano MD [facility] Progress note 10-19-2020 Note Date & Type Note Facility 10-19-2020 Note HNO ID: [id number] Author: Bigg Arellano MD Service: ? Author Type: Physician Type: Progress Notes Filed: 10/19/2020 1:31 PM Note Text: Medicare Yearly Visit Medical B eligibilty date 2000 Date of last exam 05/13/2018 PAST MEDICAL HISTORY Diagnosis Date - Chronic rhinitis 04/25/2005 - DEPRESSIVE DISORDER NEC 04/25/2005 - Diverticulosis of colon (without mention of hemorrhage) - HYPERLIPIDEMIA NEC/NOS 04/25/2005 - HYPERTENSION NOS 08/29/2005 - MENINGIOMA 08/29/2005 - Osteoarthritis 08/01/2009 - OSTEOPENIA 08/29/2005 - Postmenopausal atrophic vaginitis 12/16/2013 - SEBORRHEIC KERATOSIS NOS 01/04/2008 PAST SURGICAL HISTORY Procedure Laterality Date - COLONOSCOP W/ OR W/O BRSH SPEC 04/10/2011 Colonoscopy - LIGATE FALLOPIAN TUBE Tubal ligation - PAST SURGICAL HISTORY OF 01/2011 2 skin bxs /benign - TOTAL HIP REPLACEMENT Right 01/2010 Hip replacement, total-right - TOTAL HIP REPLACEMENT Left 09/04/2016 ALLERGIES: Penicillins and Lisinopril Medications reviewed: Yes FAMILY HISTORY Problem Relation Age of Onset - Hypertension Father - other (syringomyelia) Brother - Alcohol/Drug Other ALCOHOL AND DEPRESSION - Breast Cancer Daughter - Rheumatologic disease Daughter RA SOCIAL HISTORY: Social History Tobacco Use - Smoking status: Never Smoker - Smokeless tobacco: Never Used Substance Use Topics - Alcohol use: Yes Comment: wine occasionally - Drug use: No Ligia denies regular aerobic exercise or likes to exercise by gardening. She watches her diet for sodium, low fat and low cholesterol most of the time. List of current specialists seen: Dr. Newberry, cardiology. Dr. Blas, psychiatry. Dr. Tariq-Semaj gynecology. , ophthalmology. Dr. David Kim, podiatry. ? End of Live Planning discussed including patients advanced directive wishes: Copy needed. I am willing to follow Ligia's advanced directives. PHQ-2 / Depression screen She in the past two weeks denies having felt down, depressed, hopeless or with little interest or pleasure in doing things. Functional Ability/Safety Screen 1. Was the patient's timed Up and Go test unsteady or longer than 30 seconds? No 2. Does the patient need help with the phone, transportation, shopping,preparing meals, housework, laundry, medications or managing money? No 3. Does your home have rugs in the hallway, lack of grab bars in the bathroom, lack of handrails on the stairs or have poor lighting? No Hearing Evaluation: normal PHYSICAL EXAM BP 110/64 Pulse (!) 55 Temp 36.4 ?C (97.6 ?F) (Temporal) Resp 14 Wt 75.3 kg (166 lb) SpO2 97% BMI 28.49 kg/m? Alert and oriented X 3: YES Body mass index is 28.49 kg/m?. Visual acuity: OD: 20/50 OS: 20/40 OU: 20/40 The Mini Cog(c): Word recall=3/3 + Clock drawing=2/2=5/5. (<3 is positive). ASSESSMENT/PLAN: 85 year old female The following prevention plan was discussed during the office visit and provided to the patient: - Fall avoidance - Counseling for Exercise Bigg Arellano MD [facility] Clinical Note 04-12-2020 Note Date & Type Note Facility 04-12-2020 Note Patient Outreach ([facility]) LIGIA QUINTANA ([id number]) 1935 F Date Time Provider Department 04/12/20 CHEN JACKSON During your visit today, we recorded the following information about you: Allergies As of Date: 04/12/2020 Noted Allergy Reaction PENICILLINS 04/25/2005 LISINOPRIL 12/13/2015 3 - Cough Date Reviewed: 03/15/2020 Reviewed by: Ale Naranjo LPN - Fully Assessed Order(s):SARS-COVID VACCINE 1ST DOSE APPT [[id number]] Order #: [id number] FUTURE Prescriptions as of 04/12/2020 Sig: IPRATROPIUM BROMIDE 0.03 % NA* Use 2 Sprays in the nose twic* PANTOPRAZOLE 20 MG TABLET,DEL* Take 1 tablet by mouth daily * SIMVASTATIN 10 MG TABLET Take 1 tablet by mouth daily * LEVOTHYROXINE 75 MCG TABLET Take 1 tablet by mouth once d* POTASSIUM CHLORIDE ER 10 MEQ * Take 1 capsule by mouth once * METOPROLOL SUCCINATE ER 25 MG* Take 1 tablet by mouth once d* HYDROCHLOROTHIAZIDE 12.5 MG C* Take 1 capsule by mouth once * LOSARTAN 50 MG-HYDROCHLOROTHI* Take 1 tablet by mouth once d* HALOBETASOL PROPIONATE 0.05 %* Apply 1 application to affect* OCUVITE ORAL Take 1 capsule by mouth once * DIPHENHYDRAMINE 25 MG CAPSULE Take 25 mg by mouth as needed. APIXABAN 5 MG TABLET Take 5 mg by mouth twice michel* CITRACAL + D ORAL Take 1 tablet by mouth once d* VITAMIN B-12 ORAL Take 1 tablet by mouth. Patie* SERTRALINE 50 MG TABLET Take 1 tablet by mouth once d* IBUPROFEN 200 MG TABLET Take 1-2 tablets by mouth aramis* Problem List As Of Date 04/12/2020 Noted Resolved Depressive disorder [F32.9] 04/25/2005 CHRONIC RHINITIS [J31.0] 04/25/2005 Hyperlipidemia [E78.5] 04/25/2005 More... Disorder of bone and cartilage [M89.9, M94.9] 08/29/2005 MENINGIOMA [D32.0] 08/29/2005 05/07/2017 Essential hypertension [I10] 08/29/2005 Other seborrheic keratosis [L82.1] 01/04/2008 More... Osteoarthritis [M19.90] 08/01/2009 Hypertension [I10] 08/14/2009 10/30/2010 Vitamin D deficiency [E55.9] 05/13/2011 Scoliosis [M41.9] 11/18/2011 Dizziness [R42] 11/18/2011 02/24/2015 Low back pain [M54.5] 02/09/2012 More... Postmenopausal atrophic vaginitis [N95.2] 12/16/2013 05/07/2017 Atrial flutter, paroxysmal (HCC) [I48.92] 07/16/2018 Acquired hypothyroidism [E03.9] 08/26/2018 Gastroesophageal reflux disease [K21.9] 08/26/2018 Encounter Status:Closed by TEA HAQUE on 04/16/20 [facility] Summary Purpose Family History No Family History Records FoundNo Family History Records Found Advance Directives No Advanced Directives Records FoundNo Advanced Directives Records Found Additional Source Comments INFORMATION SOURCE (unrecogn ized section and content) DATE CREATED AUTHOR 04/17/2018 Angel Bettencourt [facility] DATE CREATED AUTHOR AUTHOR'S TAWANDA FERREIRA 04/10/2021 [facility] FOR RECORDS PERTAINING TO PATIENTS WHO ARE OR HAVE BEEN ENROLLED IN A CHEMICAL DEPENDENCY/SUBSTANCEABUSE PROGRAM, SOME INFORMATION MAY BE OMITTED. This clinical summary was aggregated from multiple sources. Caution should be exercised in using it in the provision of clinical care. This summary normalizes information from multiple sources, and as a consequence, information in this document may materially change the coding, format and clinical context of patient data. In addition, data may be omitted in some cases. CLINICAL DECISIONS SHOULD BE BASED ON THE PRIMARY CLINICAL RECORDS. [employer] [facility]. provides no warranty or guarantee of the accuracy or completeness of information in this document.
[2024-01-15 16:53] LABS: Free T3 1.7 pg/mL (2.18-3.98); T4 Total, Thyroxin 11.1 ug/dL (4.8-13.9)
== END | disposition home or self-care (01) ==
LOC: LAB 14:57
PROVIDERS: PCP Internal Medicine; Referring Provider Internal Medicine Cardiovascular Disease; Visit Provider Internal Medicine Cardiovascular Disease
DX: E03.9 Hypothyroidism, unspecified (principal)
CPT/HCPCS: 36415; 84436; 84443; 84481

== ENCOUNTER → 2024-04-19 | Outpatient (CLI) | payer MEDICARE, SELFPAY ==
--- NOTE | 2024-04-19 14:20 | RAD_ITS ---
PROCEDURE: KNEE 4 OR MORE VIEWS REASON FOR EXAM: Pain TECHNIQUE: 4 view(s) of the left knee COMPARISON: None. FINDINGS: Anatomic alignment. [id number] tricompartmental joint space loss most prominent of the lateral compartment, with underlying sclerosis and spurring. Chondrocalcinosis involving the medial compartment. No acute fra ctures or dislocations are identified. No large joint effusion. Vascular calcifications are seen. Soft tissues are unremarkable . RAD/Knee 4 or More Views IMPRESSION: [id number] degenerative changes, as detailed above No acute fracture or dislocation is identified. Reading Location: [facility]
== END | disposition home or self-care (01) ==
LOC: RAD 14:13
PROVIDERS: PCP Internal Medicine; Referring Provider Internal Medicine; Visit Provider Internal Medicine
DX: M25.562 Pain in left knee (principal)
CPT/HCPCS: 73564